=== PATIENT | female | born 1990 | race Caucasian/White ===

== ENCOUNTER 2023-05-12 18:46 | Emergency (ER) | payer OTHER, SELFPAY ==
--- NOTE | ~2023-05-12 | XR_ITS ---
EXAMINATION: XR ELBOW, LEFT CLINICAL INFORMATION: Status post ORIF COMPARISON: None available. TECHNIQUE: AP, lateral, and oblique views of the left elbow. FINDINGS: There is plate and screw fixation noted along the medial aspect of the proximal ulna crossing a transverse fracture. There is lucency surrounding the proximal 4 screws which extend through the plate. The proximal screw was also pulled out approximately 2 mm with the head of the screw proud of the plate. Remaining bones joints and soft tissues are normal. XR/XR elbow LT min 3V IMPRESSION: 1. Plate and screw fixation of proximal ulnar fracture. Lucency surrounding the proximal 4 screws which extend through the plate. The proximal screw was also pulled out approximately 2 mm. Findings raise the question of loosening/osteolysis of the orthopedic fixation. Infection is also a consideration. Fracture remains visible with minimal if any osseous bridging.
--- NOTE | ~2023-05-12 | US_ITS ---
EXAMINATION: US VENOUS WITH DOPPLER UPPER EXTREMITY, LEFT CLINICAL INFORMATION: Left upper extremity pain/swelling COMPARISON: None available. TECHNIQUE: Ultrasound of the upper extremity is performed using compression sonography and color and pulse Doppler flow with assessment of augmentation of flow. There is also imaging and Doppler assessment of the jugular and subclavian veins. Spectral analysis with color-flow imaging is performed. FINDINGS: Respiratory variation, normal compression, and augmented flow are noted throughout the upper extremity including the axillary, brachial, cubital, and radial and ulnar veins. There is normal flow in the internal jugular and subclavian veins. There is no visible deep or superficial thrombophlebitis. Incidental linear echogenic fixation plate overlying the ulna in the forearm with surrounding heterogeneous echogenicity. No discrete fluid collection identified. No significant hypervascularity. If the patient's symptoms progress, a followup ultrasound in 5 -7 days might be of value to exclude proximal propagation from a nonvisualized distal arm vein. US/US venous duplex UE LT IMPRESSION: 1. No DVT demonstrated in the left upper extremity 2. Incidental hardware fixation plate in the forearm, without heterogeneous surrounding echogenicity however no discrete fluid collection or hypervascularity identified.
--- NOTE | 2023-05-12 18:48 | ED_ITS ---
HPI - Extremity Injury (Upper) General Chief Complaint: Extremity Injury, Upper Stated Complaint: Left arm swollen unable to move Time Seen by Provider: 05/12/23 20:40 Source: patient Mode of arrival: ambulatory Limitations: no limitations History of Present Illness HPI narrative: 33 yold female presents to the ED for left arm swelling near ulnar plate and pain on movement. patient states history of left ulnar fractures with plate placed in november with recurrent episodes of seroma and a part of fracture still not healed. patient states no new trauma. Patient states no fever or chills. Patient states no redness, fever, chills, drug use, coldness, hotness, nubmness, or tinglng. Related Data Allergies Allergy/AdvReac Type Severity Reaction Status Date / Time amoxicillin [Amoxicillin] Allergy Unknown HIVES, Verified 05/12/23 18:58 anaphylaxis Iodinated Contrast Media Allergy Unknown DIFFICULTY Verified 05/12/23 18:58 [IV Dye, Iodine Containing] BREATHING penicillin V Allergy Unknown anaphylaxis Verified 05/12/23 18:58 Penicillins Allergy Unknown HIVES Verified 05/12/23 18:58 Sulfa (Sulfonamide Allergy Unknown anaphylaxis Verified 05/12/23 18:58 Antibiotics) sulfamethoxazole Allergy Unknown HIVES Verified 05/12/23 18:58 [From Bactrim] trimethoprim [From Bactrim] Allergy Unknown HIVES Verified 05/12/23 18:58 Review of Systems 2 Review of Systems: Yes all other systems are reviewed and are negative [facility] Social History Social History Smoked in Last 30 Days: Yes Use of substances other than those prescribed or required for medical reasons: No Advance Directives: No Advance Directives Information Provided: No Patient : No Physical Exam 2 Vital Signs: Vital Signs: Last Vital Signs Temp 97.9 F 05/12/23 22:24 Pulse 80 05/12/23 22:24 Resp 16 05/12/23 22:24 BP 123/85 05/12/23 22:24 Pulse Ox 100 05/12/23 22:24 O2 Del Method Room Air 05/12/23 22:24 BMI result Body Mass Index 23.9 Const: General: cooperative, healthy appearing, comfortable, no acute distress, well developed, alert, awake and Physically active O rientation/consciousness: oriented to person, oriented to place, oriented to time and patient oriented x3 HEENT: Head: Yes normal to inspection, Yes No palpable skull fracture present, Yes normocephalic and Yes atraumatic Eyes: General: appearance normal, both eyes and all related structures Neck: Neck: Yes normal visual inspection, Yes full ROM, Yes no lymphadenopathy, Yes no meningeal signs, Yes trachea midline, Yes supple, No anterior neck swelling and No tender Chest: Chest palpation & inspection: normal inspection of the chest and normal palpation of entire chest wall Resp: Effort & Inspection: normal respiratory effort and able to speak in complete sentences Auscultation: clear to auscultation bilaterally Cardio: Jugular venous distension: no JVD Heart sounds: S1 normal heart sound present and S2 normal heart sound present GI: Inspection: Yes normal to inspection and No abdominal wall ecchymosis P alpation (GI): Soft to palpation, not firm, nontender, no guarding and not rigid : General: Yes no CVA tenderness Back/Spine/Pelvis: Back: no CVA tenderness and No back tenderness Skin: General skin exam: no rashes or lesions noted, elasticity normal and turgor normal Neuro: General: oriented to person, oriented to place, oriented to time, patient oriented x3, gait normal, tone normal, moves all extremities, Normal light touch and pain sensation, no meningeal signs, no focal motor deficits, CN's II-XI intact bilaterally and normal sensation to monofilament Extrem: Shoulder/upper arm images: 1. Slight swelling but negative for any fluctuance or mass on palpation. Negative for any erythema. Negative for ecchymosis. Skin is normal temperature. Motor/neuro/vascular exam intact. Psych: Appearance: grossly normal, well kempt and not disheveled Course Course Course Narrative: RME: 33-year-old female with no significant past medical history presenting to the ED complaining of suspected LUE infection x3-4 days, reports burning to area. Reports difficulty/inability to bend & straighten elbow. Patient reports fall on November 07 sustaining scapular and ulnar fx s/p ORIF complicated by seroma which was drained multiple times @[facility] (Dr. Briseno). Was scheduled for another surgery however patient was not aware of appointment. L elbow with old surgical scar and small seroma. No erythema/warmth or crepitus Patient on Suboxone Labs, XR, US, ordered Full HPI, ROS and PE to be performed by primary ED provider. Medical Decision Making Medical Decision Making MDM Narrative: 32-year-old female presents to ED for slight swelling left ulnar area of left forearm pain patient has history of fracture in that area with plate presently placed since November at [facility]. Patient has follow-up with [facility]. Negative for any erythema, bluish black discoloration, hardness, coldness, numbness, or tingling. Patient states no new trauma. Ultrasound negative for abscess or blood clot. X-ray negative for signs of osteomyelitis but does shows osteolysis minimal ulnar fracture still present. History physical exam and xray discussed with on-call orthopedic PA surgeon Mimi who states patient can be discharged with outpatient follow up. Patient is well-appearing. Physical exam negative for signs of cellulitis, compartment syndrome, DVT, necrotizing fasciitis, or arterial occlusion. Patient given copy of labs and images for follow-up with the [facility]. Differential Diagnosis Differential Diagnoses: The differential diagnosis associated with the presentation includes (Cellulitis, DVT, osteomyelitis, necrotizing fasciitis, compartment syndrome) Admission/Observation Consideration of admission/observation: Escalation of care including admission/observation considered Consult Healthcare Provider Management of the patient was discussed with: Hospitalist (Jayna Botello) Lab Data [facility] Lab Attestation statement: I reviewed the patient's lab results. 05/12/23 20:23 05/12/23 20:23 Labs: Lab Results 05/12/23 Range/Units 20:23 WBC 5.6 (4.8-10.8) X10*3/uL RBC 4.40 (4.20-5.50) X10*6/uL Hgb 12.8 (12.0-16.0) g/dl Hct 37.7 (37.0-47.0) % MCV 85.7 (80.0-98.0) fL MCH 29.1 (27.0-33.0) pg MCHC 34.0 (31.0-35.0) g/dl RDW 12.3 (11.0-16.0) % Plt Count 260 (160-400) X10*3/uL MPV 8.3 L (9.4-12.3) fL Immature Gran % (Auto) 0.0 (0.0-0.4) % Neut % (Auto) 53.7 (45-73) % Lymph % (Auto) 35.1 (20-40) % Avery % (Auto) 8.6 (2-11) % Eos % (Auto) 2.2 (0-4) % Baso % (Auto) 0.4 (0-2) % Lymph # (Auto) 2.0 (1.2-4.9) X10*3/uL Avery # (Auto) 0.5 (0.1-1.2) X10*3/uL Eos # (Auto) 0.1 (0.0-0.4) X10*3/uL Baso # (Auto) 0.0 (0.0-0.2) X10*3/uL Abs Immat Gran (auto) 0.00 (0.00-0.03) X10*3/uL Absolute Neuts (auto) 3.0 (2.0-8.3) x10*3/uL Absolute Nucleated RBC 0.000 (0.0-0.012) X10*3/uL Nucleated RBC % (auto) 0.0 (0.0-0.2) /100WBC ESR 14 (0-20) MM/HR PT 11.8 (11.1-13.3) SEC INR 1.0 (0.9-1.1) Sodium 141 (135-145) mmol/L Potassium 3.8 (3.3-5.1) mmol/L Chloride 105 (96-108) mmol/L Carbon Dioxide 27 (22-29) mmol/L Anion Gap 13 (12-20) BUN 13 (9-16) mg/dL Creatinine 0.74 (0.5-1.4) mg/dL Estim Creat Clear Calc 89.4 Estimated GFR > 60 Random Glucose 98 (60-115) mg/dL Calcium 9.1 (8.4-10.2) mg/dL Total Bilirubin 0.2 (0.0-1.0) mg/dL Direct Bilirubin < 0.2 (0.0-0.5) mg/dL AST 25 (5-31) U/L ALT 20 (0-31) U/L Alkaline Phosphatase 82 (39-117) U/L C-Reactive Protein < 0.10 (< or = 0.50) mg/dL Total Protein 7.0 (6.5-8.0) g/dL Albumin 4.1 (3.5-5.0) g/dL Independent Interpretation I performed an independent interpretation of an: Plain X-Ray and Ultrasound Radiology Impression Discussion of test interpretation with radiology: I have reviewed the radiologist's reading. External Record Review External record reviewed: Other (prior visits) Discharge Plan Discharge Clinical Impression: Arm pain, left Patient Disposition: Home, Self-Care Instructions: Arm Pain (ED) Additional Instructions: Recommend for earlier follow-up with [facility] for re-evaluation of your plate placed in your ulnar bone due to a fracture. Return to the ED immediately for increased swelling, redness, warmth, hotness, coolness, fever, chills, numbness/tingling, eligibility to flex and extend or moved extremity, or any other concerning symptoms. Stand Alone Forms: Work/School Release Interventions: ED Discharge Assessment Last Done: 05/12/23 23:07 Discharge Date/Time: 05/12/23 23:07 Print Language: Amharic
[2023-05-12 18:49] VITALS: BP 153/100; PULSE 121; RESP 18; TEMP 37; O2SAT 100; BMI 23.9
--- OUTSIDE RECORDS SUMMARY | 2023-05-12 19:58 | XMS_ITS | Continuity of Care Document ---
Author Name Unknown Organization [facility] Address [address] [place] [address]- Care Team Providers Care Physical Design Engineer Name Role Phone Vasu Joe DO Primary Care Physician Encounter [facility] Date(s): 08/09/21 - 08/10/[address] [address]- Discharge Disposition: A-D/C Home Attending Physician: Vahid Lorenzo MD Admitting Physician: Vahid Lorenzo MD Referring Physician: Not on Staff, Referring MD Allergies, Adverse Reactions, Alerts Substance Reaction Severity Status amoxicillin Active penicillin Active Bactrim hives Active Immunizations Given and Recorded Vaccine Date Status Refusal Reason tetanus/diphtheria/pertussis, acel(Tdap) 12/23/11 Given Medications Adderall See Instructions, 0 Refills, Maintenance, 08/09/21 22:35:00 EST, Partial fill upon patient request if the prescription is for a schedule II opioid drug. Start Date: 08/09/21 Status: Ordered Adderall 30 mg oral tablet 1 tablet = 30 mg, By Mouth, 2 times a day, 0 Refills, Maintenance, 06/02/21 18:58:00 EST, Partial fill upon patient request if the prescription is for a schedule II opioid drug. Start Date: 06/02/21 Status: Ordered albuterol 90 mcg/inh inhalation powder 2 puffs, Inhalation, Every 4 hours, PRN as needed, # 1 each, 0 Refills, Maintenance, 12/12/16 3:48:48, Powder Start Date: 12/12/16 Status: Ordered Buprenorphine = 8 mg, Sublingual, 3 times a day, 0 Refills, Maintenance, 10/03/20 10:35:00 EDT, Partial fill uponpatient request if the prescription is for a schedule II opioid drug. Start Date: 10/03/20 Status: Ordered ciprofloxacin ophthalmic 0.3% solution 2 drops, OPTH, Every 4 hours, to right eye, # 5 mL, 0 Refills, Maintenance, Ophth Solution Start Date: 11/16/09 Stop Date: 11/23/09 Status: Ordered Claritin 10 mg oral tablet 10 mg, 1, tablet, By Mouth, Daily, # 30 tablet, Refills 0, Maintenance, 12/12/16 3:49:04 Start Date: 12/12/16 Status: Ordered Clonazepam See Instructions, 0.5 mg By Mouth 3 times a day, 0 Refills, Maintenance, 12/12/16 3:49:11 Start Date: 12/12/16 Status: Ordered DiphenhydrAMINE = 50 mg, By Mouth, Daily at bedtime, 0 Refills, Maintenance, 10/03/20 10:33:00 EDT, Partial fill upon patient request if the prescription is for a schedule II opioid drug. Start Date: 10/03/20 Status: Ordered docusate sodium 100 mg oral capsule 100 mg, 1, capsule, By Mouth, 2 times a day, # 60 capsule, Refills 0, Tot. Refills 0, Maintenance, 10/08/20 9:40:00 EDT, Route to Pharmacy Electronically, [facility]/pharmacy #[id number], Partial fill upon patient request if the prescription is for a schedule II o... Start Date: 10/08/20 Status: Ordered doxepin 10 mg oral capsule 1 capsule = 10 mg, By Mouth, 3 times a day, 0 Refills, Maintenance, 06/02/21 18:58:00 EST, Partial fill upon patient request if the prescription is for a schedule II opioid drug. Start Date: 06/02/21 Status: Ordered doxycycline hyclate 100 mg oral tablet 1 tablet = 100 mg, By Mouth, 2 times a day, for 10 days, # 20 tablet, 0 Refills, Acute 08/19/21 23:13:00 EST, 08/09/21 23:13:00 EST, Tablet, [facility]/pharmacy #[id number], Partial fill upon patient request if the prescription is for a schedule II opioid drug., 1... Start Date: 08/09/21 Stop Date: 08/19/21 Status: Ordered gabapentin 300 mg oral capsule 300 mg, 1, capsule, By Mouth, 3 times a day, # 90 capsule, Refills 5, Maintenance, 06/02/21 18:58:00 EST, Partial fill upon patient request if the prescription is for a schedule II opioid drug. Start Date: 06/02/21 Status: Ordered Leader Nicotine Polacrilex 2 mg oral transmucosal gum 2 each = 4 mg, Chew, Every 2 hours, PRN as needed for smoking cessation, # 40 each, 0 Refills, Maintenance, 10/03/20 10:38:00 EDT, Gum, Partial fill upon patient request if the prescription is for a schedule II opioid drug. Start Date: 10/03/20 Status: Ordered Lyrica 25 mg oral capsule See Instructions, 0 Refills, Maintenance, 08/09/21 22:34:00 EST, Partial fill upon patient request if the prescription is for a schedule II opioid drug. Start Date: 08/09/21 Status: Ordered Melatonin = 3 mg, By Mouth, Daily at bedtime, 0 Refills, Maintenance, 10/03/20 10:32:00 EDT, Partial fill upon patient request if the prescription is for a schedule II opioid drug. Start Date: 10/03/20 Status: Ordered metoclopramide 5 mg oral tablet 1 tablet = 5 mg, By Mouth, Every 6 hours, 0 Refills, Maintenance, 10/03/20 10:37:00 EDT, Partial fill upon patient request if the prescription is for a schedule II opioid drug. Start Date: 10/03/20 Status: Ordered nicotine 14 mg/24 hr transdermal film, extended release 1 patch, Topically, Daily, # 30 patch, 0 Refills, Maintenance, 10/03/20 10:37:00 EDT, Patch, Partial fill upon patient request if the prescription is for a schedule II opioid drug. Start Date: 10/03/20 Status: Ordered polyethylene glycol 3350 oral powder for reconstitution = 17 Gm, By Mouth, Daily, dissolve in water before taking, # 255 Gm, 0 Refills, Maintenance, 10/03/20 10:39:00 EDT, REC Powder, Partial fill upon patient request if the prescription is for a scheduleII opioid drug. Start Date: 10/03/20 Status: Ordered Qvar 80 mcg/inh inhalation aerosol = 80 mcg, Inhalation, 2 times a day, 0 Refills, Maintenance, 12/12/16 3:48:27 Start Date: 12/12/16 Status: Ordered SEROquel 25 mg oral tablet 25 mg, 1, tablet, By Mouth, 3 times a day, Refills 0, Maintenance, 08/09/21 22:35:00 EST, Partial fill upon patient request if the prescription is for a schedule II opioid drug. Start Date: 08/09/21 Status: Ordered Suboxone 2 mg-0.5 mg sublingual film See Instructions, 0 Refills, Maintenance, 08/09/21 22:35:00 EST, Partial fill upon patient request if the prescription is for a schedule II opioid drug. Start Date: 08/09/21 Status: Ordered Zofran 4 mg oral tablet 1 tablet = 4 mg, By Mouth, Every 8 hours, PRN Nausea & Vomiting, # 4 tablet, 0 Refills, Maintenance, Tablet Start Date: 01/13/12 Status: Ordered ZyrTEC 10 mg oral tablet 1 tablet = 10 mg, By Mouth, Daily, 0 Refills, Maintenance, 06/02/21 18:58:00 EST, Partial fill uponpatient request if the prescription is for a schedule II opioid drug. Start Date: 06/02/21 Status: Ordered Results Radiology Reports * Exam Date Time Procedure Performing Provider Status 08/09/21 11:56 PM Chest 2 Views Frontal and Lat Delphine Mccoy; Qian (Verified) Notes: (Chest 2 Views Frontal and Lat) Reason For Exam: Shortness of Breath, Fever;Other: RESULT: Chest 2 Views Frontal and Lat Chest 2 Views Frontal and Lat INDICATION: patient has been waking up with mucus since february, worsening since saturday; recently quit vapping; pleuritic chest pain COMPARISON: 04/16/2014 FINDINGS: LINES AND TUBES: None. LUNGS AND PLEURA: Clear lungs. Normal pulmonary vascularity. No pleural effusion. No pneumothorax. HEART, MEDIASTINUM AND ALBINA: Heart is normal in size. Normal upper mediastinal and hilar contour. BONES AND SOFT TISSUES: Normal. IMPRESSION: Normal. No findings to correlate to patient's symptoms. I have personally reviewed the images and I agree with this report. WSN: [id number] Ordering Physician: Vahid Lorenzo Dictated By: Nando Adamson DO Dictated Date/Time: 08/10/21 7:38 am Reviewed By: Teofilo Patel MD Signed By: Teofilo Patel MD Signed Date/Time: 08/10/21 7:43 am Transcribed By: TERA Transcribed Date/Time: 08/09/21 11:58 pm Vital Signs Most recent to oldest [Reference Range]: 1 2 3 Height 160 cm (08/10/21 12:24 AM) 160 cm (08/10/21 12:23 AM) 160 cm (08/09/21 11:09 PM) Weight 65.4 kg (08/10/21:24 AM) 65.4 kg (08/10/21:23 AM) 65.4 kg (08/09/21 11:09 PM) Oxygen Saturation [94-100 %] 100 % (08/10/21:23 AM) 100 % (08/09/21 11:09 PM) 98 % (08/09/21 10:27 PM) Pulse Rate [55-90 bpm] 79 bpm (08/10/21 12:23 AM) 83 bpm (08/09/21 11:09 PM) 87 bpm (08/09/21 10:27 PM) Body Mass Index [18.5-24.99] 25.55 *H* (08/10/21:24 AM) 25.55 *H* (08/10/21:23 AM) 25.55 *H* (08/09/21 11:09 PM) Blood Pressure [90-138/55-84 mm Hg] 127/91mm Hg (08/10/21 12:23 AM) 140/98mm Hg *H* (08/09/21 11:09 PM) 142/93mm Hg *H* (08/09/21 10:27 PM) Respiratory Rate [16-30 br/min] 18 br/min (08/10/21:23 AM) 17 br/min (08/09/21 11:09 PM) 16 br/min (08/09/21 10:27 PM) Temperature [96.8-100.4 DegF] 97.3 DegF (08/10/21:24 AM) 97.7 DegF (08/09/21 10:27 PM) Liters per Minute 0 L/min (08/10/21: AM) Mode of Delivery (Oxygen) Room air (08/10/21:23 AM) Room air (08/09/21 11:09 PM) Room air (08/09/21 10:27 PM) Blood pressure sites Arm, left (08/10/21 12:23 AM) Arm, left (08/09/21 11:09 PM) Arm, left (08/09/21 10:27 PM) Temperature Route Oral (08/10/21 12:24 AM) Oral (08/09/21 10:27 PM) Dry Weight 65.4 kg (08/10/21 12:24 AM) 65.4 kg (08/10/21 12:23 AM) 65.4 kg (08/09/21 11:09 PM) Social History Social History Type Response Tobacco Use: quit vapping th is week . Sex
--- OUTSIDE RECORDS SUMMARY | 2023-05-12 19:58 | XMS_ITS | Continuity of Care Document ---
Author Name Unknown Organization [facility] Address [address] [place] [address] mario alberto, [address] [place] [address]- Care Team Providers Care Company Pilot Name Role Phone Vasu Joe DO Primary Care Physician [place] [facility] [place]/24/[address] [facility] Surgery [address] [place] [address], [address] [place] [address]- Allergies, Adverse Reactions, Alerts Substance Reaction Severity Status amoxicillin Active penicillin Active Bactrim hives Active Immunizations Given and Recorded Vaccine Date Status Refusal Reason influenza virus vaccine, inactivated 04/05/22 Edin rded pneumococcal 23-valent vaccine 01/31/16 Recorded tetanus/diphtheria/pertussis, acel(Tdap) 12/23/11 Given tetanus-diphtheria toxoids (Td) 12/06/10 Recorded Medications Adderall See Instructions, 0 Refills, Maintenance, [...] 3:48:48, Powder Start Date: 12/12/16 Status: Ordered Azithromycin 5 Day Dose Pack 250 mg oral tablet 1 pack/packet, By Mouth, Once, as directed on package labeling, # 6 tablet, 0 Refills, Soft Stop, 02/13/23 15:55:00 EDT, Tablet, [facility]/pharmacy #[id number], Partial fill upon patient request if the prescription is for a schedule II opioid drug., 165, cm, 080... Start Date: 02/13/23 Status: Ordered Buprenorphine = 8 mg, Sublingual, 3 times a day, 0 Refills, Maintenance, 10/03/20 10:35:00 EDT, Partial fill uponpatient request if the prescription is for a schedule II opioid drug. Start Date: 10/03/20 Status: Ordered cholecalciferol oral tablet See Instructions, By Mouth Daily, # 30 tablet, 0 Refills, Maintenance, 11/23/22 13:00:00 EDT, [facility] fill upon patient request if the prescription is for a scheduleII opioid drug., 165, cm, 11/23/22 6:21:00 EDT, Hei... Start Date: 11/23/22 Stop Date: 12/24/22 Status: Ordered ciprofloxacin ophthalmic 0.3% solution 2 [...] 12/12/16 3:49:11 Start Date: 12/12/16 Status: Ordered cloNIDine 0.1 mg oral tablet 0.1 mg, 1, tablet, By Mouth, Every 8 hours, PRN, PRN for restlessness, # 21 tablet, Refills 0, Tot.Refills 0, Maintenance, Other, 11/23/22 13:00:00 EDT, Route to Pharmacy Electronically, [facility], Partial fill upon patient request if... Start Date: 11/23/22 Stop Date: 11/30/22 Status: Ordered Cyclobenzaprine By Mouth, 0 Refills, Maintenance, 02/13/23 13:01:00 EDT, Partial fill upon patient request if the prescription is for a schedule II opioid drug. Start Date: 02/13/23 Status: Ordered DiphenhydrAMINE = 50 mg, By Mouth, Daily at bedtime, 0 Refills, Maintenance, 10/03/20 10:33:00 EDT, Partial fill upon patient request if the prescription is for a schedule II opioid drug. Start Date: 10/03/20 Status: Ordered docusate sodium 100 mg oral capsule 100 mg, 1, capsule, By Mouth, 2 times a day, # 28 capsule, Refills 0, Tot. Refills 0, Maintenance, 11/23/22 13:00:00 EDT, Route to Pharmacy Electronically, [facility], Partial fill uponpatient request if the prescription is for a schedu... Start Date: 11/23/22 Stop Date: 12/07/22 Status: Ordered docusate sodium 100 mg oral capsule 100 mg, 1, capsule, By Mouth, 2 times a day, # 60 capsule, Refills 0, Tot. Refills 0, Maintenance, 10/08/20 9:40:00 EDT, [id number] Partial fill upon patient request if the prescription is for a schedule II o... Start Date: 10/08/20 Status: Ordered doxepin 10 mg oral capsule 1 capsule = 10 mg, By Mouth, 3 times a day, 0 Refills, Maintenance, 06/02/21 18:58:00 EST, Partial fill upon patient request if the prescription is for a schedule II opioid drug. Start Date: 06/02/21 Status: Ordered Flomax 0.4 mg oral capsule 0.4 mg, 1, capsule, By Mouth, Daily, # 14 capsule, Refills 0, Tot. Refills 0, Maintenance, 11/23/2312:01:00 EDT, Route to Pharmacy Electronically, [facility], Partial fill upon patientrequest if the prescription is for a schedule II op... Start Date: 11/23/22 Stop Date: 12/07/22 Status: Ordered gabapentin 300 mg oral capsule 600 mg, 2, capsule, By Mouth, 3 times a day, # 180 capsule, Refills 0, Tot. Refills 0, Maintenance,11/23/22 13:00:00 EDT, Route to Pharmacy Electronically, [facility], Partial fill upon patient request if the prescription is for a sched... Start Date: 11/23/22 Stop Date: 12/23/22 Status: Ordered gabapentin 300 mg oral capsule [...] drug. Start Date: 10/03/20 Status: Ordered Lyrica 150 mg oral capsule 2 capsule = 300 mg, By Mouth, Daily at bedtime, # 60 capsule, 0 Refills, Maintenance, 11/23/22 13:01:00 EDT, Capsule, [facility], Partial fill upon patient request if the prescription is for a schedule II opioid drug., 165, cm, 11/23/22... Start Date: 11/23/22 Stop Date: 12/23/22 Status: Ordered Lyrica 25 mg oral capsule [...] opioid drug. Start Date: 10/03/20 Status: Ordered morphine 60 mg/24 hours oral capsule, extended release = 60 mg, By Mouth, Daily, # 7 capsule, 0 Refills, Maintenance, 11/23/22 14:08:00 EDT, ER Capsule, [facility], Partial fill upon patient request if the prescription is for a schedule II opioid drug., 165, cm, 11/23/22 6:21:00 EDT, Height,... Start Date: 11/23/22 Stop Date: 11/30/22 Status: Ordered nicotine 14 mg/24 hr transdermal [...] opioid drug. Start Date: 08/09/21 Status: Ordered Shower Bench See Instructions, # 1 each, Maintenance, shower bench, 12/19/22 14:07:00 EDT, Supply Start Date: 12/19/22 Status: Ordered Shower Chair See Instructions, # 1 each, Maintenance, shower chair, 11/26/22 12:22:00 EDT, Supply Start Date: 11/26/22 Status: Ordered Suboxone 2 mg-0.5 mg sublingual film See Instructions, 0 Refills, Maintenance, 08/09/21 22:35:00 EST, Partial fill upon patient request if the prescription is for a schedule II opioid drug. Start Date: 08/09/21 Status: Ordered toilet seat riser toilet seat riser, See Instructions, # 1 each, Refills 0, Tot. Refills 0, Maintenance, ., 12/19/22 14:07:00 EDT, Supply Start Date: 12/19/22 Status: Ordered Vyvanse 70 mg oral capsule 1 capsule = 70 mg, By Mouth, Daily in AM, 0 Refills, Maintenance, 02/13/23 13:01:00 EDT, Partial fill upon patient request if the prescription is for a schedule II opioid drug. Start Date: 02/13/23 Status: Ordered Zofran 4 mg oral tablet [...] opioid drug. Start Date: 06/02/21 Status: Ordered Social History Social History Type Response Tobacco Use: 4 or less cigar ettes(less than 1/4 pack)/day in last 30 days. Sex Implantable Device List Procedure Provider Procedure Date Device Type Site Open Reduction Internal Fixation Taz Garland MD 11/07/22 Unknown Arm Lower Device Identifier Serial Number Lot or Batch Number Manufacturing Date Expiration Date Distinct Identification Code MRI Safety Implantable Status Assigning Authority Unknown Unknown Unknown Unknown 11/07/22 Unknown Unknown Active Unkn own Procedure Provider Procedure Date Device Type Site Open Reduction Internal Fixation Taz Garland MD 11/07/22 Unknown Arm Lower Device Identifier Serial Number Lot or Batch Number Manufacturing Date Expiration Date Distinct Identification Code MRI Safety Implantable Status Assigning Authority Unknown Unknown Unknown Unknown 11/07/22 Unknown Unknown Active Unkn own Procedure Provider Procedure Date Device Type Site Open Reduction Internal Fixation Taz Garland MD 11/07/22 Unknown Arm Lower Device Identifier Serial Number Lot or Batch Number Manufacturing Date Expiration Date Distinct Identification Code MRI Safety Implantable Status Assigning Authority Unknown Unknown Unknown Unknown 11/07/22 Unknown Unknown Active Unkn own Procedure Provider Procedure Date Device Type Site Open Reduction Internal Fixation Taz Garland MD 11/07/22 Unknown Arm Lower Device Identifier Serial Number Lot or Batch Number Manufacturing Date Expiration Date Distinct Identification Code MRI Safety Implantable Status Assigning Authority Unknown Unknown Unknown Unknown 11/07/22 Unknown Unknown Active Unkn own Procedure Provider Procedure Date Device Type Site Open Reduction Internal Fixation Taz Garland MD 11/07/22 Unknown Arm Lower Device Identifier Serial Number Lot or Batch Number Manufacturing Date Expiration Date Distinct Identification Code MRI Safety Implantable Status Assigning Authority Unknown Unknown Unknown Unknown 11/07/22 Unknown Unknown Active Unkn own Patient Care team information Care Team Personnel Name: Carla Cooley RN Position: S RN Member Role: Primary Care Nurse Name: Robbie Pichardo RN Position: S RN Member Role: Primary Care Nurse Name: Juwan Gerber RN Position: [facility] RN Member Role: Primary Care Nurse Name: Seven Raines MD Position: [facility] PHARMACY GRADUATE INTERN MD Member Role: [employer] PHARMACY GRADUATE INTERN Physician Address: Address: [address] [place] [address]- Name: Jaja Champagne RN Position: [facility] RN Member Role: Primary Care Nurse Name: Danielle Hernandez LPN Position: [facility] RN Member Role: Primary Care Nurse Name: Nadia Diego RN Position: [facility] RN Member Role: Primary Care Nurse Name: Glenys Cardenas RN Position: [facility] RN Member Role: Primary Care Nurse Name: Izzy Escalante RN Position: [facility] RN Member Role: Primary Care Nurse Name: Vasu Joe DO Position: [facility] Physician - Primary Care Member Role: PCP Address: Address: [address] [place], [place] [id number] [place] [address]- Name: Mai Hess RN Position: [facility] RN Member Role: Primary Care Nurse Name: Anna Reyes RN Position: [facility] RN Member Role: Primary Care Nurse Name: Mali Mosley RN Position: [facility] RN Member Role: Primary Care Nurse Care Team Related Persons Name: ASAEL BAZAN Address: [address] [place] [address] Name: KIRILL BAZAN Address: home [address] [place] [address] Name: ZHOU BAZAN Address: Address: home [address] [place] [address] [place]
--- OUTSIDE RECORDS SUMMARY | 2023-05-12 19:58 | XMS_ITS | Continuity of Care Document ---
Author Name Unknown Organization [facility] Address [address] [place] [address]- Care Team Providers Care Law Enforcement Director Name Role Phone Vasu Joe DO Primary Care Physician Encounter [facility] Date(s): 06/02/21 - 06/02/[address] [address]- Discharge Disposition: A-D/C Home Attending Physician: Nesha Allen MD Admitting Physician: Nesha Allen MD Referring Physician: Not on Staff, Referring MD Allergies, Adverse Reactions, Alerts Substance Reaction Severity Status amoxicillin Active penicillin Active Bactrim hives Active Immunizations Given and Recorded Vaccine Date Status Refusal Reason tetanus/diphtheria/pertussis, acel(Tdap) 12/23/11 Given Medications Adderall 30 mg oral tablet 1 tablet [...] 0 Refills, Maintenance, Ophth Solution Start Date: 5/12/10 Stop Date: 11/23/09 Status: Ordered Claritin 10 [...] 10/08/20 9:40:00 EDT, Route to Pharmacy Electronically, [facility]/pharmacy #[id number], Partial fill upon patient request if the prescription is for a schedule II o... Start Date: 10/08/20 Status: Ordered doxepin 10 mg oral capsule 1 capsule = 10 mg, By Mouth, 3 times a day, 0 Refills, Maintenance, 06/02/21 18:58:00 EST, Partial fill upon patient request if the prescription is for a schedule II opioid drug. Start Date: 06/02/21 Status: Ordered gabapentin 300 mg oral capsule [...] opioid drug. Start Date: 10/03/20 Status: Ordered Melatonin = 3 mg, By [...] 12/12/16 3:48:27 Start Date: 12/12/16 Status: Ordered Zithromax 250 mg oral tablet 1 tablet = 250 mg, By Mouth, Daily, for 4 days, # 4 tablet, 0 Refills, Acute 06/06/21 21:14:00 EST,06/02/21 21:14:00 EST, Tablet, [facility]/pharmacy #[id number], Partial fill upon patient request if the prescription is for a schedule II opioid drug., 158, cm, 11... Start Date: 06/02/21 Stop Date: 06/06/21 Status: Ordered Zofran 4 mg oral tablet [...] drug. Start Date: 06/02/21 Status: Ordered Results Orders for Microbiology Reports Name Date Group A Strep Screen and Culture 1 Microbiology Reports TEST:Group A Strep Screen and Culture STATUS:Unauthenticated BODY SITE: SOURCE:THROAT COLLECTED DATE/TIME:06/02/21 8:29 PM Group A Strep Screen and Culture SPECIMEN DESCRIPTION : THROAT SWAB SPECIAL REQUESTS : NONE DIRECT EXAM : RAPID GROUP A RESULT IS NEGATIVE, REFER TO CULTURE RESULT. REPORT STATUS : PRELIMINARY REPORT Vital Signs Most recent to oldest [Reference Range]: 1 2 Height 158 cm (06/02/21 9:27 PM) 158 cm (06/02/21 6:54 PM) Weight 63.4 kg (06/02/21 6:54 PM) Oxygen Saturation [94-100 %] 96 % (06/02/21 9:27 PM) 97 % (06/02/21 6:53 PM) Pulse Rate [55-90 bpm] 97 bpm *H* (06/02/21 9:27 PM) 106 bpm *H* (06/02/21 6:53 PM) Blood Pressure [90-138/55-84 mm Hg] 129/ 77mm Hg (06/02/21 9:27 PM) 124/91mm Hg (06/02/21 6:53 PM) Respiratory Rate [16-30 br/min] 16 br/mi n (06/02/21 9:27 PM) 20 br/min (06/02/21 6:53 PM) Temperature [96.8-100.4 DegF] 97.2 DegF (06/02/21 6:54 PM) Mode of Delivery (Oxygen) Room air (06/02/21 9:27 PM) Room air (06/02/21 6:53 PM) Blood pressure sites Arm, right (06/02/21 9:27 PM) Arm, left (06/02/21 6:53 PM) Temperature Route Temporal (06/02/21 6:54 PM) Dry Weight 63.4 kg (06/02/21 6:54 PM) Social History Social History Type Response Tobacco Use: 4 or less cigar ettes(less than 1/4 pack)/day in last 30 days. Sex
--- OUTSIDE RECORDS SUMMARY | 2023-05-12 19:58 | XMS_ITS | Continuity of Care Document ---
Author Name Unknown Organization [facility] Address [address] [place] [address] mario alberto, [address] [place] [address]- Care Team Providers Care Distribution Center Assistant Name Role Phone Vasu Joe DO Primary Care Physician Encounter [facility] [place] Date(s): 04/01/23 - 05/01/23 [facility] Surgery [address] [place] [address], [address] [place] [address]- Allergies, Adverse Reactions, Alerts Substance Reaction Severity [...] Refills, Soft Stop, 02/13/23 15:55:00 EDT, Tablet, [facility]/pharmacy #[id number], Partial fill upon patient request [...] 0 Refills, Maintenance, 11/23/22 13:00:00 EDT, Tablet, [facility], Partial fill upon patient request if [...] 11/23/22 13:00:00 EDT, Route to Pharmacy Electronically, [facility], Partial fill upon patient request [...] 11/23/22 13:00:00 EDT, Route to Pharmacy Electronically, [facility], Partial fill uponpatient request if the prescription is for a schedu... Start Date: 11/23/22 Stop Date: 12/07/22 Status: Ordered docusate sodium 100 mg oral capsule 100 mg, 1, capsule, By Mouth, 2 times a day, # 60 capsule, Refills 0, Tot. Refills 0, Maintenance, 10/08/20 9:40:00 EDT, [id number] Partial fill upon patient request if [...] Maintenance, 11/23/2312:01:00 EDT, Route to Pharmacy Electronically, [facility], Partial fill upon patientrequest if the prescription is for a schedule II op... Start Date: 11/23/22 Stop Date: 12/07/22 Status: Ordered gabapentin 300 mg oral capsule 600 mg, 2, capsule, By Mouth, 3 times a day, # 180 capsule, Refills 0, Tot. Refills 0, Maintenance,11/23/22 13:00:00 EDT, Route to Pharmacy Electronically, [facility], Partial fill upon patient [...] 0 Refills, Maintenance, 11/23/22 13:01:00 EDT, Capsule, [facility], Partial fill upon patient [...] Refills, Maintenance, 11/23/22 14:08:00 EDT, ER Capsule, [facility], Partial fill upon patient request [...] Care Nurse Name: Juwan Gerber RN Position: [facility] RN Member Role: Primary Care Nurse Name: Seven Raines MD Position: [facility] FRONT LINE LEADER MD Member Role: [employer] FRONT LINE LEADER Physician Address: Address: [address] [place] [address]- Name: Jaja Champagne RN Position: [facility] RN Member Role: Primary Care Nurse Name: Danielle Hernandez LPN Position: [facility] RN Member Role: Primary Care Nurse Name: Nadia Diego RN Position: [facility] RN Member Role: Primary Care Nurse Name: Glenys Cardenas RN Position: [facility] RN Member Role: Primary Care Nurse Name: Izzy Escalante RN Position: [facility] RN Member Role: Primary Care Nurse Name: Vasu Joe DO Position: [facility] Physician - Primary Care Member Role: PCP Address: Address: [address] [place], [place] [id number] [place] [address]- Name: Mai Hess RN Position: [facility] RN Member Role: Primary Care Nurse Name: Anna Reyes RN Position: [facility] RN Member Role: Primary Care Nurse Name: Mali Mosley RN Position: [facility] RN Member Role: Primary Care Nurse Care Team Related Persons Name: ASAEL BAZAN Address: [address] [place] [address] Name: KIRILL BAZAN Address: home [address] [place] [address] Name: ZHOU BAZAN Address: Address: home [address] [place] [address] [place]
--- OUTSIDE RECORDS SUMMARY | 2023-05-12 19:58 | XMS_ITS | Continuity of Care Document ---
Author Name Unknown Organization [facility] Address [address] [place] [address] ve [address] [place] [address]- Care Team Providers Care Programs Assistant Name Role Phone Vasu Joe DO Primary Care Physician Encounter [facility] [place] Date(s): 02/28/23 - 03/30/[address] [place] [address]- Allergies, Adverse Reactions, Alerts Substance Reaction Severity [...] Refills, Soft Stop, 02/13/23 15:55:00 EDT, Tablet, [facility]/pharmacy #[id number], Partial fill upon patient request [...] 0 Refills, Maintenance, 11/23/22 13:00:00 EDT, Tablet, [facility], Partial fill upon patient [...] 11/23/22 13:00:00 EDT, Route to Pharmacy Electronically, [facility], Partial fill upon patient request [...] 11/23/22 13:00:00 EDT, Route to Pharmacy Electronically, [facility], Partial fill uponpatient request if the prescription is for a schedu... Start Date: 11/23/22 Stop Date: 12/07/22 Status: Ordered docusate sodium 100 mg oral capsule 100 mg, 1, capsule, By Mouth, 2 times a day, # 60 capsule, Refills 0, Tot. Refills 0, Maintenance, 10/08/20 9:40:00 EDT, [id number] fill upon patient [...] Maintenance, 11/23/2312:01:00 EDT, Route to Pharmacy Electronically, [facility], Partial fill upon patientrequest if the prescription is for a schedule II op... Start Date: 11/23/22 Stop Date: 12/07/22 Status: Ordered gabapentin 300 mg oral capsule 600 mg, 2, capsule, By Mouth, 3 times a day, # 180 capsule, Refills 0, Tot. Refills 0, Maintenance,11/23/22 13:00:00 EDT, Route to Pharmacy Electronically, [facility], Partial fill upon patient [...] 0 Refills, Maintenance, 11/23/22 13:01:00 EDT, Capsule, [facility], Partial fill upon patient [...] Refills, Maintenance, 11/23/22 14:08:00 EDT, ER Capsule, [facility], Partial fill upon patient [...] Team Personnel Name: Carla Cooley RN Position: [facility] RN Member Role: Primary Care Nurse Name: Robbie Pichardo RN Position: S RN Member Role: Primary Care Nurse Name: Juwan Gerber RN Position: [facility] RN Member Role: Primary Care Nurse Name: Seven Raines MD Position: [facility] VIDEO JOURNALIST MD Member Role: [employer] VIDEO JOURNALIST Physician Address: Address: [address] [place] [address]- Name: Jaja Champagne RN Position: [facility] RN Member Role: Primary Care Nurse Name: Danielle Hernandez LPN Position: [facility] RN Member Role: Primary Care Nurse Name: Nadia Diego RN Position: [facility] RN Member Role: Primary Care Nurse Name: Glenys Cardenas RN Position: [facility] RN Member Role: Primary Care Nurse Name: Izzy Escalante RN Position: [facility] RN Member Role: Primary Care Nurse Name: Vasu Joe DO Position: [facility] Physician - Primary Care Member Role: PCP Address: Address: [address] [place], [place] [id number] [place] [address]- Name: Mai Hess RN Position: [facility] RN Member Role: Primary Care Nurse Name: Anna Reyes RN Position: [facility] RN Member Role: Primary Care Nurse Name: Mali Mosley RN Position: [facility] RN Member Role: Primary Care Nurse Care Team Related Persons Name: ASAEL BAZAN Address: home [address] [place] [address] Name: KIRILL BAZAN Address: home [address] [place] [address] Name: ZHOU BAZAN Address: Address: home [address] [place] [id number] [place]
--- OUTSIDE RECORDS SUMMARY | 2023-05-12 19:58 | XMS_ITS | Continuity of Care Document ---
Author Name Unknown Organization [facility] Address [address] [place] [id number]- Care Team Providers Care Plastic Straightening Roll Operator Name Role Phone Vasu Joe DO Primary Care Physician [place] [facility] [place](s[place] 03/10/20 - 04/09/[address] [address]- [facility] Allergies, Adverse Reactions, Alerts Substance Reaction Severity Status amoxicillin Active penicillin Active Bactrim hives Active Immunizations Given and Recorded Vaccine Date Status Refusal Reason tetanus/diphtheria/pertussis, acel(Tdap) 12/23/11 Given Medications albuterol 90 mcg/inh inhalation powder 2 puffs, Inhalation, Every 4 hours, PRN as needed, # 1 each, 0 Refills, Maintenance, 12/12/16 3:48:48, Powder Start Date: 12/12/16 Status: Ordered ciprofloxacin ophthalmic 0.3% solution 2 drops, OPTH, Every 4 hours, to right eye, # 5 mL, 0 Refills, Maintenance, Ophth Solution Start Date: 11/16/09 Stop Date: 11/23/09 Status: Ordered Claritin 10 mg oral tablet 10 mg, 1, tablet, By Mouth, Daily, # 30 tablet, Refills 0, Maintenance, 12/12/16 3:49:04 Start Date: 12/12/16 Status: Ordered clindamycin 300 mg oral capsule 1 capsule = 300 mg, By Mouth, 2 times a day, for 10 days, with food, # 20 capsule, 0 Refills, Acute04/12/20 12:21:00 EDT, 04/02/20 12:21:00 EDT, Capsule, [id number], 160, cm, 04/02/20 11:34:00 EDT, Height, 52.5, kg, 04/02/20 11:34:00 EDT, Dry... Start Date: 04/02/20 Stop Date: 04/12/20 Status: Ordered Clonazepam See Instructions, 0.5 mg By Mouth 3 times a day, 0 Refills, Maintenance, 12/12/16 3:49:11 Start Date: 12/12/16 Status: Ordered ibuprofen 600 mg oral tablet 1 tablet = 600 mg, By Mouth, 4 times a day, PRN Pain, # 40 tablet, 0 Refills, Maintenance Start Date: 12/23/11 Status: Ordered Percocet-5/325 325 mg-5 mg oral tablet 1-2 tablet, By Mouth, Every 4 to 6 hours, PRN Pain , Moderate, # 12 tablet, 0 Refills, Maintenance Start Date: 12/29/10 Status: Ordered Percocet-5/325 325 mg-5 mg oral tablet 1 tablet, By Mouth, Every 6 hours, PRN Pain , Severe, # 8 tablet, 0 Refills, Maintenance, Tablet Start Date: 11/16/09 Status: Ordered Qvar 80 mcg/inh inhalation aerosol = 80 mcg, Inhalation, 2 times a day, 0 Refills, Maintenance, 12/12/16 3:48:27 Start Date: 12/12/16 Status: Ordered Zofran 4 mg oral tablet 1 tablet = 4 mg, By Mouth, Every 8 hours, PRN Nausea & Vomiting, # 4 tablet, 0 Refills, Maintenance, Tablet Start Date: 01/13/12 Status: Ordered Social History Social History Type Response Tobacco Use: 4 or less cigar ettes(less than 1/4 pack)/day in last 30 days. Sex
--- OUTSIDE RECORDS SUMMARY | 2023-05-12 19:59 | XMS_ITS | Continuity of Care Document ---
Author Name Unknown Organization [facility] ter Address [address] [place] [id number]- Care Team Providers Care Sponsorship Coordinator Name Role Phone Alyssagueritanavmarquita Vasu BACA Primary Care Physician Encounter [facility] [place] Date(s): 11/22/22 - 12/22/[address] [address]- Attending Physician: Not on Staff, Attending MD Admitting Physician: Not on Staff, Admitting MD Referring Physician: Not on Staff, Referring [...] 0 Refills, Maintenance, 11/23/22 13:00:00 EDT, Tablet, [facility], Partial fill upon patient request [...] 11/23/22 13:00:00 EDT, Route to Pharmacy Electronically, [facility], Partial fill upon patient request if... Start Date: 11/23/22 Stop Date: 11/30/22 Status: Ordered DiphenhydrAMINE = 50 mg, By [...] 11/23/22 13:00:00 EDT, Route to Pharmacy Electronically, [facility], Partial fill uponpatient request if the prescription is for a schedu... Start Date: 11/23/22 Stop Date: 12/07/22 Status: Ordered docusate sodium 100 mg oral capsule 100 mg, 1, capsule, By Mouth, 2 times a day, # 60 capsule, Refills 0, Tot. Refills 0, Maintenance, 10/08/20 9:40:00 EDT, [id number] fill upon patient request [...] Maintenance, 11/23/2312:01:00 EDT, Route to Pharmacy Electronically, [facility], Partial fill upon patientrequest if the prescription is for a schedule II op... Start Date: 11/23/22 Stop Date: 12/07/22 Status: Ordered gabapentin 300 mg oral capsule 600 mg, 2, capsule, By Mouth, 3 times a day, # 180 capsule, Refills 0, Tot. Refills 0, Maintenance,11/23/22 13:00:00 EDT, Route to Pharmacy Electronically, [facility], Partial fill upon patient [...] 0 Refills, Maintenance, 11/23/22 13:01:00 EDT, Capsule, [facility], Partial fill upon patient [...] Refills, Maintenance, 11/23/22 14:08:00 EDT, ER Capsule, [facility], Partial fill upon patient [...] EDT, Supply Start Date: 12/19/22 Status: Ordered Zofran 4 mg oral tablet [...] quit vapping th is week . Sex Implantable Device List Procedure Provider Procedure [...] Team Personnel Name: Carla Cooley RN Position: [facility] RN Member Role: Primary Care Nurse Name: Robbie Pichardo RN Position: [facility] RN Member Role: Primary Care Nurse Name: Juwan Gerber RN Position: [facility] RN Member Role: Primary Care Nurse Name: Seven Raines MD Position: [facility] LEASING AGENT MD Member Role: Lifetime LEASING AGENT Physician Address: Address: [address] [place], [place] [address], [place] [address]- [place] Name: Jaja Champagne RN Position: S RN Member Role: Primary Care Nurse Name: Danielle Hernandez LPN Position: S RN Member Role: Primary Care Nurse Name: Nadia Diego RN Position: S RN Member Role: Primary Care Nurse Name: Glenys Cardenas RN Position: S RN Member Role: Primary Care Nurse Name: Izzy Escalante RN Position: [facility] RN Member Role: Primary Care Nurse Name: Vasu Joe DO Position: [facility] Physician - Primary Care Member Role: PCP Address: Address: [address] [place] [address] [address] [place] [address]- Name: Mai Hess RN Position: [facility] RN Member Role: Primary Care Nurse Name: Anna Reyes RN Position: [facility] RN Member Role: Primary Care Nurse Name: Mali Mosley RN Position: [facility] RN Member Role: Primary Care Nurse Care Team Related Persons Name: ASAEL BAZAN Address: [address] [place] [address] Name: KIRILL BAZAN Address: [address] [place] [address] Name: ZHOU BAZAN Address: [id number] Address: [address] [place] [address] [place]
--- OUTSIDE RECORDS SUMMARY | 2023-05-12 19:59 | XMS_ITS | Continuity of Care Document ---
Author Name Unknown Organization [facility] Address [address] [place] [address]- Care Team Providers Care Fork Repairer Name Role Phone Vasu Joe DO Primary Care Physician Encounter [facility] [place] Date(s): 05/23/22 - 05/30/22 [facility] [address] [place] [address]- Encounter Diagnosis Foot pain, left(Discharge Diagnosis) - 05/23/22 Left ankle pain(Discharge Diagnosis) - 05/23/22 Toe fracture(Discharge Diagnosis) - 05/23/22 Attending Physician: Angelito Coelho DO Referring Physician: Vasu Joe DO Allergies, Adverse Reactions, Alerts Substance Reaction Severity [...] 10/08/20 9:40:00 EDT, Route to Pharmacy Electronically, [facility]/pharmacy #[id number], Partial fill upon patient request if the [...] opioid drug. Start Date: 06/02/21 Status: Ordered Problem List Diagnosis Diagnosis Type Effective Dates Health Status Cl inical Service Informant Foot pain, left Discharge Diagnosis 05/23/22 Left ankle pain Discharge Diagnosis 05/23/22 Toe fracture Discharge Diagnosis 05/23/22 Vital Signs Most recent to oldest [Reference Range]: 1 Height 160 cm (05/23/22 10:56 AM) Oxygen Saturation [94-100 %] 98 % (05/23/22 10:56 AM) Pulse Rate [55-90 bpm] 89 bpm (05/23/22 10:56 AM) Blood Pressure [90-138/55-84 mm Hg] 138/ 89mm Hg (05/23/22 10:56 AM) Respiratory Rate [16-30 br/min] 18 br/mi n (05/23/22 10:56 AM) Temperature [96.8-100.4 DegF] 97.9 DegF (05/23/22 10:56 AM) Mode of Delivery (Oxygen) Room air (05/23/22 10:56 AM) Blood pressure sites Arm, left (05/23/22 10:56 AM) Temperature Route Temporal (05/23/22 10:56 AM) Social History Social History Type Response Tobacco Use: quit vapping th is week . Sex Note * Yael Morillo NP: PERFORM, SIGN, VERIFY Event Display: Patient Education/Instruction Authored Date: [id number] [facility] *[facility] Clinical Summary Name KEVIN BAZAN Age 32 Years 1990 PCP Vasu Joe DO PCP [facility]# [id number] Visit Date 05/23/2022 10:04:00 Patient Instructions F/U with [facility] today regarding if they want to see you for follow up Additional Instructions: Scheduled Appointments?? Future Appointments ?No Future Appointments Scheduled Follow-Up Instructions ?? Diagnosis Unspecified fracture of unspecified toe(s), initial encounter for closed fracture; Pain in left ankle and joints of left foot; Pain in left foot Medications: Please continue your medications until treatment is completed or stopped by your provider. Discuss any questions related to medications with your provider. Medications to Continue with No Changes These medications were not printed or sent to your pharmacy Albuterol (albuterol 90 mcg/inh inhalation powder) 2 puff(s) Inhalation every 4 hours as needed. Next Dose: Amphetamine-Dextroamphetamine (Adderall 30 mg oral tablet) 1 tab(s) Oral twice a day. Next Dose: Amphetamine-Dextroamphetamine (Adderall) Next Dose: Beclomethasone (Qvar 80 mcg/inh inhalation aerosol) 80 Microgram Inhalation twice a day. Next Dose: Buprenorphine 8 Milligram Sublingual 3 times a day. Next Dose: Buprenorphine-Naloxone (Suboxone 2 mg-0.5 mg sublingual film) Next Dose: Cetirizine (ZyrTEC 10 mg oral tablet) 1 tab(s) Oral Daily. Next Dose: Ciprofloxacin Ophthalmic (ciprofloxacin ophthalmic 0.3% solution) 2 Drops Ophthalmic every 4 hours for 7 Days. to right eye. Refills: 0. Next Dose: Clonazepam 0.5 mg By Mouth 3 times a day. Next Dose: DiphenhydrAMINE 50 Milligram Oral Daily at Bedtime. Next Dose: Docusate (docusate sodium 100 mg oral capsule) 1 capsule Oral twice a day. Refills: 0. Next Dose: Doxepin (doxepin 10 mg oral capsule) 1 capsule Oral 3 times a day. Next Dose: Gabapentin (gabapentin 300 mg oral capsule) 1 capsule Oral 3 times a day. Next Dose: Loratadine (Claritin 10 mg oral tablet) 1 tab(s) Oral Daily. Next Dose: Melatonin 3 Milligram Oral Daily at Bedtime. Next Dose: Metoclopramide (metoclopramide 5 mg oral tablet) 1 tab(s) Oral every 6 hours. Next Dose: Nicotine (Leader Nicotine Polacrilex 2 mg oral transmucosal gum) 2 Each Chew every 2 hours as needed as needed for smoking cessation. Next Dose: Nicotine (nicotine 14 mg/24 hr transdermal film, extended release) 1 patch(es) Topically Daily. Next Dose: Ondansetron (Zofran 4 mg oral tablet) 1 tab(s) Oral every 8 hours as needed Nausea & Vomiting. Refills: 0. Next Dose: Polyethylene Glycol 3350 (polyethylene glycol 3350 oral powder for reconstitution) 17 gram Oral Daily. dissolve in water before taking. Next Dose: Pregabalin (Lyrica 25 mg oral capsule) Next Dose: Quetiapine (SEROquel 25 mg oral tablet) 1 tab(s) Oral 3 times a day. Next Dose: Allergy Info:?? Bactrim; penicillin; amoxicillin Medications Given This Visit Future Orders ?No future orders Vital Signs Height 160 cm Weight BMI Blood Pressure 138 mm Hg/89 mm Hg Temperature 97.9 DegF Pulse Rate 89 bpm Respiratory Rate 18 br/min 02 Sat Mode of Delivery 98 %/Room air You can now view a summary of your hospital visit from the comfort of your home through a free online portal called [employer] [facility]. [employer] is a website that allows you to securely view your medical information including discharge summary, medications and follow-up visits. ??You can alsosend a secure electronic message to your doctor???s office to request appointments, renew medications or just ask a question. You can enroll at [email or web address] or register during your next office visit. Disclaimer:?? The information provided is of a general nature and is intended to be used in conjunction with the recommendations and advice of your health care practitioner. ??Every effort has been made to ensure that the information provided is accurate and complete at the time it is provided to you however, as your needs change, or, as new ??information becomes available, different or additional instructions may be required. If you have questions, please consult with your primary care provider or pharmacist, as appropriate. ??This information is not intended to serve as substitution for assessment and evaluation by a qualified health care provider. If you do not have a primary care provider, you may find a [facility] provider by calling [facility] at [phone]. For information about the plan of care including goals and instructions for your diagnosis, please see the patient education orders section of this document. Patient Education Materials?? The content of this educational material or handout may have been modified, supplemented, or adapted from its original content and format to support your individualized medical care. Closed Toe Fracture Your big toe is broken (fractured). This causes local pain, swelling, and bruising. This injury takes about 4 weeks to heal. Toe injuries are often treated by taping the injured toe to the next one (james taping). This protects the injured toe and holds it in position. If the toenail has been severely injured, it may fall off in 1 to 2 weeks. It takes up to 12 monthsfor a new toenail to grow back. Home care Follow these guidelines when caring for yourself at home: ??? You may be given a cast shoe to wear to keep your toe from moving. If not, you can use a sandalor any shoe that doesn???t put pressure on the injured toe until the swelling and pain go away. If using a sandal, be careful not to strike your foot against anything. Another injury could make the fracture worse. If you were given crutches, don???t put full weight on the injured foot until you humberto so without pain. ??? Keep your foot elevated to reduce pain and swelling. When sleeping, put a pillow under the injured leg. When sitting, support the injured leg so it is level with your waist. This is very important during the first 2 days (48 hours). ??? Put an ice pack on the injured area. Do this for 20 minutes every 1 to 2 hours the first day for pain relief. You can make an ice pack by wrapping a plastic bag of ice cubes in a thin towel. As the ice melts, be careful that any cloth or paper tape doesn???t get wet. Continue using the ice pack3 to 4 times a day for the next 2 days. Then use the ice pack as needed to ease pain and swelling. ??? If james tape was used and it becomes wet or dirty, change it. You may replace it with paper, plastic, or cloth tape. Cloth tape and paper tapes must be kept dry. ??? You may use acetaminophen or ibuprofen to control pain, unless another pain medicine was prescribed. If you have chronic liver or kidney disease, talk with your health care provider before using these medicines. Also talk with your provider if you???ve had a stomach ulcer or GI bleeding. ??? You may return to sports or physical education activities after 4 weeks, or when you can run without pain. Follow-up care Follow up with your health care provider in 1 week, or as advised. This is to make sure the bone ishealing the way it should. If X-rays were taken, a radiologist will look at them. You will be told of any new findings that may affect your care. When to seek medical advice Call your health care provider right away if any of these occur: ??? Pain or swelling gets worse ??? The cast cracks ??? The cast and padding get wet and stays wet more than 24 hours ??? Bad odor from the cast or wound fluid stains the cast ??? Tightness or pressure under the cast gets worse ??? Toe becomes cold, blue, numb, or tingly ??? You can???t move the toe ??? Signs of infection: fever, redness, warmth, swelling, or drainage from the wound??or cast ??? Fever of??101??F (38.3??C)??or higher, or as directed by your health care provider ?? [id number] [employer]. [address] [place] [address]. All rights reserved. This information is not intended as a substitute for professional medical care. Always follow your healthcare professional's instructions. * Cindy Ramos: PERFORM, SIGN, VERIFY Event Display: Patient Education/Instruction Authored Date: [id number] [facility] *[facility] Clinical Summary Name KEVIN BAZAN Age 32 Years 1990 PCP Vasu Joe DO PCP [facility]# [id number] Visit Date 05/23/2022 10:04:00 Additional Instructions: Scheduled Appointments?? Future Appointments ?No Future Appointments Scheduled Follow-Up Instructions ?? Diagnosis Pain in left ankle and joints of left foot; Pain in left foot Medications: Please continue your medications until treatment is completed or stopped by your provider. Discuss any questions related to medications with your provider. Medications to Continue with No Changes These medications were not printed or sent to your pharmacy Albuterol (albuterol 90 mcg/inh inhalation powder) 2 puff(s) Inhalation every 4 hours as needed. Next Dose: Amphetamine-Dextroamphetamine (Adderall 30 mg oral tablet) 1 tab(s) Oral twice a day. Next Dose: Amphetamine-Dextroamphetamine (Adderall) Next Dose: Beclomethasone (Qvar 80 mcg/inh inhalation aerosol) 80 Microgram Inhalation twice a day. Next Dose: Buprenorphine 8 Milligram Sublingual 3 times a day. Next Dose: Buprenorphine-Naloxone (Suboxone 2 mg-0.5 mg sublingual film) Next Dose: Cetirizine (ZyrTEC 10 mg oral tablet) 1 tab(s) Oral Daily. Next Dose: Ciprofloxacin Ophthalmic (ciprofloxacin ophthalmic 0.3% solution) 2 Drops Ophthalmic every 4 hours for 7 Days. to right eye. Refills: 0. Next Dose: Clonazepam 0.5 mg By Mouth 3 times a day. Next Dose: DiphenhydrAMINE 50 Milligram Oral Daily at Bedtime. Next Dose: Docusate (docusate sodium 100 mg oral capsule) 1 capsule Oral twice a day. Refills: 0. Next Dose: Doxepin (doxepin 10 mg oral capsule) 1 capsule Oral 3 times a day. Next Dose: Gabapentin (gabapentin 300 mg oral capsule) 1 capsule Oral 3 times a day. Next Dose: Loratadine (Claritin 10 mg oral tablet) 1 tab(s) Oral Daily. Next Dose: Melatonin 3 Milligram Oral Daily at Bedtime. Next Dose: Metoclopramide (metoclopramide 5 mg oral tablet) 1 tab(s) Oral every 6 hours. Next Dose: Nicotine (Leader Nicotine Polacrilex 2 mg oral transmucosal gum) 2 Each Chew every 2 hours as needed as needed for smoking cessation. Next Dose: Nicotine (nicotine 14 mg/24 hr transdermal film, extended release) 1 patch(es) Topically Daily. Next Dose: Ondansetron (Zofran 4 mg oral tablet) 1 tab(s) Oral every 8 hours as needed Nausea & Vomiting. Refills: 0. Next Dose: Polyethylene Glycol 3350 (polyethylene glycol 3350 oral powder for reconstitution) 17 gram Oral Daily. dissolve in water before taking. Next Dose: Pregabalin (Lyrica 25 mg oral capsule) Next Dose: Quetiapine (SEROquel 25 mg oral tablet) 1 tab(s) Oral 3 times a day. Next Dose: Allergy Info:?? Bactrim; penicillin; amoxicillin Medications Given This Visit Future Orders ?No future orders Vital Signs Height 160 cm Weight BMI Blood Pressure 138 mm Hg/89 mm Hg Temperature 97.9 DegF Pulse Rate 89 bpm Respiratory Rate 18 br/min 02 Sat Mode of Delivery 98 %/Room air You can now view a summary of your hospital visit from the comfort of your home through a free online portal called [facility]. [facility] is a website that allows you to securely view your medical information including discharge summary, medications and follow-up visits. ??You can alsosend a secure electronic message to your doctor???s office to request appointments, renew medications or just ask a question. You can enroll at [email or web address] or register during your next office visit. Disclaimer:?? The information provided is of a general nature and is intended to be used in conjunction with the recommendations and advice of your health care practitioner. ??Every effort has been made to ensure that the information provided is accurate and complete at the time it is provided to you however, as your needs change, or, as new ??information becomes available, different or additional instructions may be required. If you have questions, please consult with your primary care provider or pharmacist, as appropriate. ??This information is not intended to serve as substitution for assessment and evaluation by a qualified health care provider. If you do not have a primary care provider, you may find a [facility] provider by calling [facility] at [phone]. For information about the plan of care including goals and instructions for your diagnosis, please see the patient education orders section of this document. Patient Education Materials?? The content of this educational material or handout may have been modified, supplemented, or adapted from its original content and format to support your individualized medical care. * Cindy Ramos: PERFORM, SIGN, VERIFY Event Display: Patient Education/Instruction Authored Date: [facility] *[facility] Clinical Summary Name KEVIN BAZAN Age 32 Years 1990 PCP Vasu Joe DO PCP Visit Date 05/23/2022 10:04:00 Additional Instructions: Scheduled Appointments?? Future Appointments ?No Future Appointments Scheduled Follow-Up Instructions ?? Diagnosis Pain in left ankle and joints of left foot; Pain in left foot Medications: Please continue your medications until treatment is completed or stopped by your provider. Discuss any questions related to medications with your provider. Medications to Continue with No Changes These medications were not printed or sent to your pharmacy Albuterol (albuterol 90 mcg/inh inhalation powder) 2 puff(s) Inhalation every 4 hours as needed. Next Dose: Amphetamine-Dextroamphetamine (Adderall 30 mg oral tablet) 1 tab(s) Oral twice a day. Next Dose: Amphetamine-Dextroamphetamine (Adderall) Next Dose: Beclomethasone (Qvar 80 mcg/inh inhalation aerosol) 80 Microgram Inhalation twice a day. Next Dose: Buprenorphine 8 Milligram Sublingual 3 times a day. Next Dose: Buprenorphine-Naloxone (Suboxone 2 mg-0.5 mg sublingual film) Next Dose: Cetirizine (ZyrTEC 10 mg oral tablet) 1 tab(s) Oral Daily. Next Dose: Ciprofloxacin Ophthalmic (ciprofloxacin ophthalmic 0.3% solution) 2 Drops Ophthalmic every 4 hours for 7 Days. to right eye. Refills: 0. Next Dose: Clonazepam 0.5 mg By Mouth 3 times a day. Next Dose: DiphenhydrAMINE 50 Milligram Oral Daily at Bedtime. Next Dose: Docusate (docusate sodium 100 mg oral capsule) 1 capsule Oral twice a day. Refills: 0. Next Dose: Doxepin (doxepin 10 mg oral capsule) 1 capsule Oral 3 times a day. Next Dose: Gabapentin (gabapentin 300 mg oral capsule) 1 capsule Oral 3 times a day. Next Dose: Loratadine (Claritin 10 mg oral tablet) 1 tab(s) Oral Daily. Next Dose: Melatonin 3 Milligram Oral Daily at Bedtime. Next Dose: Metoclopramide (metoclopramide 5 mg oral tablet) 1 tab(s) Oral every 6 hours. Next Dose: Nicotine (Leader Nicotine Polacrilex 2 mg oral transmucosal gum) 2 Each Chew every 2 hours as needed as needed for smoking cessation. Next Dose: Nicotine (nicotine 14 mg/24 hr transdermal film, extended release) 1 patch(es) Topically Daily. Next Dose: Ondansetron (Zofran 4 mg oral tablet) 1 tab(s) Oral every 8 hours as needed Nausea & Vomiting. Refills: 0. Next Dose: Polyethylene Glycol 3350 (polyethylene glycol 3350 oral powder for reconstitution) 17 gram Oral Daily. dissolve in water before taking. Next Dose: Pregabalin (Lyrica 25 mg oral capsule) Next Dose: Quetiapine (SEROquel 25 mg oral tablet) 1 tab(s) Oral 3 times a day. Next Dose: Allergy Info:?? Bactrim; penicillin; amoxicillin Medications Given This Visit Future Orders ?No future orders Vital Signs Height 160 cm Weight BMI Blood Pressure 138 mm Hg/89 mm Hg Temperature 97.9 DegF Pulse Rate 89 bpm Respiratory Rate 18 br/min 02 Sat Mode of Delivery 98 %/Room air You can now view a summary of your hospital visit from the comfort of your home through a free online portal called [employer] [facility]. [employer] is a website that allows you to securely view your medical information including discharge summary, medications and follow-up visits. ??You can alsosend a secure electronic message to your doctor???s office to request appointments, renew medications or just ask a question. You can enroll at [email or web address] or register during your next office visit. Disclaimer:?? The information provided is of a general nature and is intended to be used in conjunction with the recommendations and advice of your health care practitioner. ??Every effort has been made to ensure that the information provided is accurate and complete at the time it is provided to you however, as your needs change, or, as new ??information becomes available, different or additional instructions may be required. If you have questions, please consult with your primary care provider or pharmacist, as appropriate. ??This information is not intended to serve as substitution for assessment and evaluation by a qualified health care provider. If you do not have a primary care provider, you may find a [facility] provider by calling [facility] at [phone]. For information about the plan of care including goals and instructions for your diagnosis, please see the patient education orders section of this document. Patient Education Materials?? The content of this educational material or handout may have been modified, supplemented, or adapted from its original content and format to support your individualized medical care. Patient Care team information Care Team Personnel Name: Seven Raines MD Position: [facility] REVERSING MILL ROLLER MD Member Role: [employer]ING [employer]LLER Physician Address: Address: [address] [place] [address] Name: Vasu Joe DO Position: [facility] Physician (General Medicine) Member Role: PCP Address: Address: [address] [place] [address] [address] Care Team Related Persons Name: ASAEL BAZAN Address: [address] [place] [address] Name: KIRILL BAZAN Address: [address] [place] [address] Name: ZHOU BAZAN Address: Address: [address]
--- OUTSIDE RECORDS SUMMARY | 2023-05-12 19:59 | XMS_ITS | Continuity of Care Document ---
Author Name Unknown Organization [facility] Address [address] [place] [address] mario alberto, [address] [place] [address]- Care Team Providers Care Music Grapher Name Role Phone Vasu Joe DO Primary Care Physician [place] [facility] [place] - 02/13/23 [facility] [address] [place] [address] Drive, [address] [place] [address]- Allergies, Adverse Reactions, Alerts Substance Reaction Severity [...] Refills, Soft Stop, 02/13/23 15:55:00 EDT, Tablet, [facility]/pharmacy #[id number], Partial fill upon patient request if the prescription is for a schedule II opioid drug., carter Rocha, 0... Start Date: 02/13/23 Status: Ordered Buprenorphine = 8 mg, Sublingual, 3 times a day, 0 Refills, Maintenance, 10/03/20 10:35:00 EDT, Partial fill uponpatient request if the prescription is for a schedule II opioid drug. Start Date: 10/03/20 Status: Ordered cefpodoxime 200 mg oral tablet 1 tablet = 200 mg, By Mouth, Every 12 hours, for 5 days, # 10 tablet, 0 Refills, Acute 02/18/23 15:54:00 EDT, 02/13/23 15:54:00 EDT, Tablet, [facility]/pharmacy #[id number], Partial fill upon patient request if the prescription is for a schedule II opioid drug., 1... Start Date: 02/13/23 Stop Date: 02/18/23 Status: Ordered cholecalciferol oral tablet See Instructions, By Mouth Daily, # 30 tablet, 0 Refills, Maintenance, 11/23/22 13:00:00 EDT, Tablet, [facility] 3, Partial fill upon patient request if the prescription is for a scheduleII opioid drug., carter Rocha, 11/23/22 6:21:00 EDT, Hei... Start Date: 11/23/22 [...] 11/23/22 13:00:00 EDT, Route to Pharmacy Electronically, [facility] 3, Partial fill upon patient request [...] EDT, Route to Pharmacy Electronically, [facility] 3, Partial fill uponpatient request if the prescription is for a schedu... Start Date: 11/23/22 Stop Date: 12/07/22 Status: Ordered docusate sodium 100 mg oral capsule 100 mg, 1, capsule, By Mouth, 2 times a day, # 60 capsule, Refills 0, Tot. Refills 0, Maintenance, 10/08/20 9:40:00 EDT, [id number] Partial fill upon patient request if [...] Maintenance, 11/23/2312:01:00 EDT, Route to Pharmacy Electronically, [facility], Partial fill upon patientrequest if the prescription is for a schedule II op... Start Date: 11/23/22 Stop Date: 12/07/22 Status: Ordered gabapentin 300 mg oral capsule 600 mg, 2, capsule, By Mouth, 3 times a day, # 180 capsule, Refills 0, Tot. Refills 0, Maintenance,11/23/22 13:00:00 EDT, Route to Pharmacy Electronically, [facility], Partial fill upon patient [...] 0 Refills, Maintenance, 11/23/22 13:01:00 EDT, Capsule, [facility], Partial fill upon patient [...] Refills, Maintenance, 11/23/22 14:08:00 EDT, ER Capsule, [facility], Partial fill upon patient [...] Device Type Site Open Reduction Internal Fixation Tza Garland MD 11/07/22 Unknown Arm Lower Device [...] Device Type Site Open Reduction Internal Fixation Rosana/Taz Granados MD 11/07/22 Unknown Arm Lower Device Identifier Serial Number Lot or Batch Number Manufacturing Date Expiration Date Distinct Identification Code MRI Safety Implantable Status Assigning Authority Unknown Unknown Unknown Unknown 11/07/22 Unknown Unknown Active Unkn own Procedure Provider Procedure Date Device Type Site Open Reduction Internal Fixation Rosana/Taz Granados MD 11/07/22 Unknown Arm Lower Device Identifier Serial Number Lot or Batch Number Manufacturing Date Expiration Date Distinct Identification Code MRI Safety Implantable Status Assigning Authority Unknown Unknown Unknown Unknown 11/07/22 Unknown Unknown Active Unkn own Procedure Provider Procedure Date Device Type Site Open Reduction Internal Fixation Rosana/Ra Taz Briseno MD 11/07/22 Unknown Arm Lower Device Identifier Serial Number Lot or Batch Number Manufacturing Date Expiration Date Distinct Identification Code MRI Safety Implantable Status Assigning Authority Unknown Unknown Unknown Unknown 11/07/22 Unknown Unknown Active Unkn own Patient Care team information Care Team Personnel Name: Carla Cooley RN Position: [facility] RN Member Role: Primary Care Nurse Name: Robbie Pichardo RN Position: [facility] RN Member Role: Primary Care Nurse Name: Juwan Gerber RN Position: [facility] RN Member Role: Primary Care Nurse Name: Seven Raines MD Position: [facility] ADOLESCENT MEDICINE SPECIALIST MD Member Role: Lifetime ADOLESCENT MEDICINE SPECIALIST Physician Address: Address: [address] [place] [address]- Name: Jaja Champagne RN Position: [facility] RN Member Role: Primary Care Nurse Name: Danielle Hernandez LPN Position: [facility] RN Member Role: Primary Care Nurse Name: Nadia Diego RN Position: [facility] RN Member Role: Primary Care Nurse Name: Glenys Cardenas RN Position: [facility] RN Member Role: Primary Care Nurse Name: Izzy Escalante RN Position: [facility] RN Member Role: Primary Care Nurse Name: Vasu Joe DO Position: [facility] Physician - Primary Care Member Role: PCP Address: Address: [address] [place] [address]- [place] Name: Mai Hess RN Position: [facility] RN Member Role: Primary Care Nurse Name: Anna Reyes RN Position: S RN Member Role: Primary Care Nurse Name: Mali Mosley RN Position: S RN Member Role: Primary Care Nurse Care Team Related Persons Name: HORTENSIAMICHEL VARGASINE Address: home [address] [place] [address] Name: KIRILL BAZAN Address: home [address] [place] [address] Name: ZHOU BAZAN Address: [address] Address: home [address] [address] [place]
--- OUTSIDE RECORDS SUMMARY | 2023-05-12 19:59 | XMS_ITS | Continuity of Care Document ---
Author Name Unknown Organization [facility] Address [address] [place] [address]- Care Team Providers Care Pin Cleaner Name Role Phone Vasu Joe DO Primary Care Physician [place] [facility] [place] 03/08/23 [facility] [address] [place] [address]- Attending Physician: Jose Luis Figueroa Admitting Physician: AdmJose Luis walker Referring Physician: AdmtrJose Luis Allergies, Adverse Reactions, Alerts Substance Reaction Severity [...] Refills, Soft Stop, 02/13/23 15:55:00 EDT, Tablet, [facility]/pharmacy #[id number], Partial fill upon patient request if the prescription is for a schedule II opioid drug., 165, cm, 0... Start Date: 02/13/23 Status: Ordered Buprenorphine = 8 mg, Sublingual, 3 times a day, 0 Refills, Maintenance, 10/03/20 10:35:00 EDT, Partial fill uponpatient request if the prescription is for a schedule II opioid drug. Start Date: 10/03/20 Status: Ordered cholecalciferol oral tablet See Instructions, By Mouth Daily, # 30 tablet, 0 Refills, Maintenance, 11/23/22 13:00:00 EDT, Tablet, [facility] 3, Partial fill upon patient request if [...] 11/23/22 13:00:00 EDT, Route to Pharmacy Electronically, [facility] 3, Partial fill upon patient request if... [...] 11/23/22 13:00:00 EDT, Route to Pharmacy Electronically, [facility], Partial fill uponpatient request if the prescription is for a schedu... Start Date: 11/23/22 Stop Date: 12/07/22 Status: Ordered docusate sodium 100 mg oral capsule 100 mg, 1, capsule, By Mouth, 2 times a day, # 60 capsule, Refills 0, Tot. Refills 0, Maintenance, 10/08/20 9:40:00 EDT, [id number] Partial fill upon patient request if [...] 11/23/2312:01:00 EDT, Route to Pharmacy Electronically, [facility], Partial fill upon patientrequest if the prescription is for a schedule II op... Start Date: 11/23/22 Stop Date: 12/07/22 Status: Ordered gabapentin 300 mg oral capsule 600 mg, 2, capsule, By Mouth, 3 times a day, # 180 capsule, Refills 0, Tot. Refills 0, Maintenance,11/23/22 13:00:00 EDT, Route to Pharmacy Electronically, [facility], Partial fill upon patient [...] Refills, Maintenance, 11/23/22 13:01:00 EDT, Capsule, [facility], Partial fill upon patient request if [...] Maintenance, 11/23/22 14:08:00 EDT, ER Capsule, [facility], Partial fill upon patient [...] Device Type Site Open Reduction Internal Fixation Ulna/Ra Taz Briseno MD 11/07/22 Unknown Arm Lower Device Identifier Serial Number Lot or Batch Number Manufacturing Date Expiration Date Distinct Identification Code MRI Safety Implantable Status Assigning Authority Unknown Unknown Unknown Unknown 11/07/22 Unknown Unknown Active Unkn own Procedure Provider Procedure Date Device Type Site Open Reduction Internal Fixation Ulna/Ra Taz Briseno MD 11/07/22 Unknown Arm Lower Device Identifier Serial Number Lot or Batch Number Manufacturing Date Expiration Date Distinct Identification Code MRI Safety Implantable Status Assigning Authority Unknown Unknown Unknown Unknown 11/07/22 Unknown Unknown Active Unkn own Patient Care team information Care Team Personnel Name: Carla Cooley RN Position: S RN Member Role: Primary Care Nurse Name: Robbie Pichardo RN Position: [facility] RN Member Role: Primary Care Nurse Name: Juwan Gerber RN Position: [facility] RN Member Role: Primary Care Nurse Name: Seven Raines MD Position: [facility] VP REVENUE CYCLE MD Member Role: Lifetime VP REVENUE CYCLE Physician Address: Address: [address] [place] [address]- Name: Jaja Champagne RN Position: [facility] RN Member Role: Primary Care Nurse Name: Danielle Hernandez LPN Position: [facility] RN Member Role: Primary Care Nurse Name: Nadia Diego RN Position: [facility] RN Member Role: Primary Care Nurse Name: Glenys Cardenas RN Position: [facility] RN Member Role: Primary Care Nurse Name: Izzy Escalante RN Position: [facility] RN Member Role: Primary Care Nurse Name: Vasu Joe DO Position: [facility] Physician - Primary Care Member Role: PCP Address: Address: [address] [place] [address] [address] [place] [address]- [place] Name: Mai Hess RN Position: [facility] RN Member Role: Primary Care Nurse Name: Anna Reyes RN Position: [facility] RN Member Role: Primary Care Nurse Name: Mali Mosley RN Position: [facility] RN Member Role: Primary Care Nurse Care Team Related Persons Name: ASAEL BAZAN Address: home [address] [place] [address] Name: KIRILL BAZAN Address: [address] [place] [address] Name: ZHOU BAZAN Address: Address: home [address] [place] [address]
--- OUTSIDE RECORDS SUMMARY | 2023-05-12 19:59 | XMS_ITS | Continuity of Care Document ---
Author Name Unknown Organization [facility] Address [address] [place] [address], [address] [place] [address]- Care Team Providers Care Conveyor Feeder Name Role Phone Vasu Joe DO Primary Care Physician [place] [facility] [place] 01/04/23 [facility] [address] [place] [address] Drive, [address] [place] [address]- Attending Physician: Bridget Dykes DO Allergies, Adverse Reactions, Alerts Substance Reaction [...] 0 Refills, Maintenance, 11/23/22 13:00:00 EDT, Tablet, [facility], Partial fill upon patient request [...] 11/23/22 13:00:00 EDT, Route to Pharmacy Electronically, [facility] 3, Partial fill upon patient request [...] 11/23/22 13:00:00 EDT, Route to Pharmacy Electronically, [facility], Partial fill uponpatient request if the prescription is for a schedu... Start Date: 11/23/22 Stop Date: 12/07/22 Status: Ordered docusate sodium 100 mg oral capsule 100 mg, 1, capsule, By Mouth, 2 times a day, # 60 capsule, Refills 0, Tot. Refills 0, Maintenance, 10/08/20 9:40:00 EDT, [id number] fill upon patient [...] Maintenance, 11/23/2312:01:00 EDT, Route to Pharmacy Electronically, [facility], Partial fill upon patientrequest if the prescription is for a schedule II op... Start Date: 11/23/22 Stop Date: 12/07/22 Status: Ordered gabapentin 300 mg oral capsule 600 mg, 2, capsule, By Mouth, 3 times a day, # 180 capsule, Refills 0, Tot. Refills 0, Maintenance,11/23/22 13:00:00 EDT, Route to Pharmacy Electronically, [facility], Partial fill upon patient [...] 0 Refills, Maintenance, 11/23/22 13:01:00 EDT, Capsule, [facility], Partial fill upon patient [...] Refills, Maintenance, 11/23/22 14:08:00 EDT, ER Capsule, [facility], Partial fill upon patient [...] Device Type Site Open Reduction Internal Fixation Peewee/Taz Granados MD 11/07/22 Unknown Arm Lower Device Identifier Serial Number Lot or Batch Number Manufacturing Date Expiration Date Distinct Identification Code MRI Safety Implantable Status Assigning Authority Unknown Unknown Unknown Unknown 11/07/22 Unknown Unknown Active Unkn own Procedure Provider Procedure Date Device Type Site Open Reduction Internal Fixation Peewee/Taz Granados MD 11/07/22 Unknown Arm Lower Device [...] Care Nurse Name: Juwan Gerber RN Position: S RN Member Role: Primary Care Nurse Name: Seven Raines MD Position: [facility] DIRECTOR AGRICULTURAL SERVICES MD Member Role: Lifetime DIRECTOR AGRICULTURAL SERVICES Physician Address: Address: [address] [place] [address] Name: Jaja Champagne RN Position: [facility] RN Member Role: Primary Care Nurse Name: Danielle Hernandez LPN Position: [facility] RN Member Role: Primary Care Nurse Name: Nadia Diego RN Position: [facility] RN Member Role: Primary Care Nurse Name: Glenys Cardenas RN Position: [facility] RN Member Role: Primary Care Nurse Name: Izzy Escalante RN Position: [facility] RN Member Role: Primary Care Nurse Name: Vasu Joe DO Position: [facility] Physician - Primary Care Member Role: PCP Address: Address: [address] [place] [address] [address] [place] [address]- Name: Mai Hess RN Position: [facility] RN Member Role: Primary Care Nurse Name: Anna Reyes RN Position: [facility] RN Member Role: Primary Care Nurse Name: Mali Mosley RN Position: [facility] RN Member Role: Primary Care Nurse Care Team Related Persons Name: ASAEL BAZAN Address: home [address] [place] [address] Name: KIRILL BAZAN Address: home [address] [place] [address] Name: ZHOU BAZAN Address: [address] Address: home [address] [place] [address]
--- OUTSIDE RECORDS SUMMARY | 2023-05-12 19:59 | XMS_ITS | Continuity of Care Document ---
Author Name Unknown Organization [facility] Address [address] [place] [address] mario alberto, [address] [place] [address]- Care Team Providers Care Appliance Repairer Name Role Phone Vasu Joe DO Primary Care Physician En[place] [facility] [place]s): 04/10/23 - 05/10/23 [facility] [address] [place] [address], [address] [place], [place] [address] Attending Physician: AdmJose Luis walker Admitting Physician: AdmtrJose Luis Referring Physician: Admtr, Ar8 Allergies, Adverse Reactions, Alerts Substance Reaction Severity [...] Stop, 02/13/23 15:55:00 EDT, Tablet, [facility]/pharmacy #[id number], Partial fill upon [...] 0 Refills, Maintenance, 11/23/22 13:00:00 EDT, Tablet, [facility] 3, Partial fill upon patient [...] 11/23/22 13:00:00 EDT, Route to Pharmacy Electronically, [facility], Partial fill upon patient request if... [...] 11/23/22 13:00:00 EDT, Route to Pharmacy Electronically, [facility] 3, Partial fill uponpatient request if the prescription is for a schedu... Start Date: 11/23/22 Stop Date: 12/07/22 Status: Ordered docusate sodium 100 mg oral capsule 100 mg, 1, capsule, By Mouth, 2 times a day, # 60 capsule, Refills 0, Tot. Refills 0, Maintenance, 10/08/20 9:40:00 EDT, [id number] fill upon patient request [...] Maintenance, 11/23/2312:01:00 EDT, Route to Pharmacy Electronically, [facility] 3, Partial fill upon patientrequest if the prescription is for a schedule II op... Start Date: 11/23/22 Stop Date: 12/07/22 Status: Ordered gabapentin 300 mg oral capsule 600 mg, 2, capsule, By Mouth, 3 times a day, # 180 capsule, Refills 0, Tot. Refills 0, Maintenance,11/23/22 13:00:00 EDT, Route to Pharmacy Electronically, [facility], Partial fill upon patient [...] 0 Refills, Maintenance, 11/23/22 13:01:00 EDT, Capsule, [facility], Partial fill upon patient [...] Refills, Maintenance, 11/23/22 14:08:00 EDT, ER Capsule, [facility] 3, Partial fill upon patient [...] Device Type Site Open Reduction Internal Fixation Ulna/Taz Granados MD 11/07/22 Unknown Arm Lower Device [...] Team Personnel Name: Carla Cooley RN Position: [facility] RN Member Role: Primary Care Nurse Name: Robbie Pichardo RN Position: [facility] RN Member Role: Primary Care Nurse Name: Seven Raines MD Position: [facility] SHIP'S PILOT MD Member Role: Lifetime SHIP'S PILOT Physician Address: Address: [address] [place] [address]- Name: Jaja Champagne RN Position: [facility] RN Member Role: Primary Care Nurse Name: Danielle Hernandez LPN Position: [facility] RN Member Role: Primary Care Nurse Name: Nadia Diego RN Position: [facility] RN Member Role: Primary Care Nurse Name: Glenys Cardenas RN Position: [facility] RN Member Role: Primary Care Nurse Name: Izzy Escalante RN Position: [facility] RN Member Role: Primary Care Nurse Name: Vasu Joe DO Position: [facility] Physician - Primary Care Member Role: PCP Address: Address: [address] [place] [id number]- [place] Name: Mai Hess RN Position: [facility] RN Member Role: Primary Care Nurse Name: Anna Reyes RN Position: [facility] RN Member Role: Primary Care Nurse Name: Mali Mosley RN Position: [facility] RN Member Role: Primary Care Nurse Care Team Related Persons Name: ASAEL BAZAN Address: home [address] [place] [address] Name: KIRILL BAZAN Address: [address] [place] [address] Name: ZHOU BAZAN Address: Address: [address] [place] [address]
--- OUTSIDE RECORDS SUMMARY | 2023-05-12 19:59 | XMS_ITS | Continuity of Care Document ---
Author Name Unknown Organization [facility] Address [address] [place] [address] mario alberto, [address] [place] [address]- Care Team Providers Care Senior Inspector Name Role Phone Vasu Joe DO Primary Care Physician [place] [facility] [place]23 - 05/10/23 [facility] [address] [place] [address], [address] [place], [place] [address] Attending Physician: Roro Dejesus MD Referring Physician: Vasu Joe DO Allergies, Adverse [...] Soft Stop, 02/13/23 15:55:00 EDT, Tablet, [facility]/pharmacy #[id number], Partial fill upon patient request if [...] 0 Refills, Maintenance, 11/23/22 13:00:00 EDT, Tablet, [facility] 3, Partial fill upon patient request [...] 11/23/22 13:00:00 EDT, Route to Pharmacy Electronically, [facility] 3, Partial fill upon patient request [...] 11/23/22 13:00:00 EDT, Route to Pharmacy Electronically, [facility], Partial fill uponpatient request if the prescription is for a schedu... Start Date: 11/23/22 Stop Date: 12/07/22 Status: Ordered docusate sodium 100 mg oral capsule 100 mg, 1, capsule, By Mouth, 2 times a day, # 60 capsule, Refills 0, Tot. Refills 0, Maintenance, 10/08/20 9:40:00 EDT, [id number] fill upon patient request [...] Maintenance, 11/23/2312:01:00 EDT, Route to Pharmacy Electronically, [facility], Partial fill upon patientrequest if the prescription is for a schedule II op... Start Date: 11/23/22 Stop Date: 12/07/22 Status: Ordered gabapentin 300 mg oral capsule 600 mg, 2, capsule, By Mouth, 3 times a day, # 180 capsule, Refills 0, Tot. Refills 0, Maintenance,11/23/22 13:00:00 EDT, Route to Pharmacy Electronically, [facility], Partial fill upon patient [...] 0 Refills, Maintenance, 11/23/22 13:01:00 EDT, Capsule, [facility], Partial fill upon patient [...] Refills, Maintenance, 11/23/22 14:08:00 EDT, ER Capsule, [facility], Partial fill upon patient [...] Team Personnel Name: Carla Cooley RN Position: [facility] RN Member Role: Primary Care Nurse Name: Robbie Pichardo RN Position: [facility] RN Member Role: Primary Care Nurse Name: Seven Raines MD Position: [facility] BONDING SUPERVISOR MD Member Role: Lifetime BONDING SUPERVISOR Physician Address: Address: [address] [place] [address]- Name: Jaja Champagne RN Position: [facility] RN Member Role: Primary Care Nurse Name: Danielle Hernandez LPN Position: [facility] RN Member Role: Primary Care Nurse Name: Nadia Diego RN Position: [facility] RN Member Role: Primary Care Nurse Name: Glenys Cardenas RN Position: [facility] RN Member Role: Primary Care Nurse Name: Izzy Escalante RN Position: [facility] RN Member Role: Primary Care Nurse Name: Vasu Joe DO Position: [facility] Physician - Primary Care Member Role: PCP Address: Address: [address] [place], [place] [id number] [place] [address]- Name: Mai Hess RN Position: [facility] RN Member Role: Primary Care Nurse Name: Anna Reyes RN Position: [facility] RN Member Role: Primary Care Nurse Name: Mali Mosley RN Position: [facility] RN Member Role: Primary Care Nurse Care Team Related Persons Name: ASAEL BAZAN Address: home [address] [place] [address] Name: KIRILL BAZAN Address: [address] [place] [address] Name: ZHOU BAZAN Address: Address: home [address] [place] [address] [place]
--- OUTSIDE RECORDS SUMMARY | 2023-05-12 19:59 | XMS_ITS | Continuity of Care Document ---
Author Name Unknown Organization [facility] Address [address] [place] [address] mario alberto, [address] [place] [address]- Care Team Providers Care Tuft Machine Operator Name Role Phone Vasu Joe DO Primary Care Physician Encounter [facility] Date(s): 02/06/23 - 03/08/23 [facility] [address] [place] [address] Drive, [address] [place], [place] [address] Allergies, Adverse Reactions, Alerts Substance Reaction Severity [...] Soft Stop, 02/13/23 15:55:00 EDT, Tablet, [facility]pharmacy #[id number], Partial fill upon patient [...] 0 Refills, Maintenance, 11/23/22 13:00:00 EDT, Tablet, [facility], Partial fill upon patient request if [...] 11/23/22 13:00:00 EDT, Route to Pharmacy Electronically, [facility], Partial fill upon patient request [...] 11/23/22 13:00:00 EDT, Route to Pharmacy Electronically, [facility], Partial fill uponpatient request if the prescription is for a schedu... Start Date: 11/23/22 Stop Date: 12/07/22 Status: Ordered docusate sodium 100 mg oral capsule 100 mg, 1, capsule, By Mouth, 2 times a day, # 60 capsule, Refills 0, Tot. Refills 0, Maintenance, 10/08/20 9:40:00 EDT, [id number] Partial fill upon patient request if [...] Maintenance, 11/23/2312:01:00 EDT, Route to Pharmacy Electronically, [facility], Partial fill upon patientrequest if the prescription is for a schedule II op... Start Date: 11/23/22 Stop Date: 12/07/22 Status: Ordered gabapentin 300 mg oral capsule 600 mg, 2, capsule, By Mouth, 3 times a day, # 180 capsule, Refills 0, Tot. Refills 0, Maintenance,11/23/22 13:00:00 EDT, Route to Pharmacy Electronically, [facility], Partial fill upon patient [...] 0 Refills, Maintenance, 11/23/22 13:01:00 EDT, Capsule, [facility], Partial fill upon patient [...] Refills, Maintenance, 11/23/22 14:08:00 EDT, ER Capsule, [facility], Partial fill upon patient [...] Team Personnel Name: Carla Cooley RN Position: [facility] RN Member Role: Primary Care Nurse Name: Robbie Pichardo RN Position: S RN Member Role: Primary Care Nurse Name: Juwan Gerber RN Position: [facility] RN Member Role: Primary Care Nurse Name: Seven Raines MD Position: [facility] CLIENT SERVICE REPRESENTATIVE MD Member Role: Lifetime CLIENT SERVICE REPRESENTATIVE Physician Address: Address: [address] [place] [address]- Name: Jaja Champagne RN Position: [facility] RN Member Role: Primary Care Nurse Name: Danielle Hernandez LPN Position: [facility] RN Member Role: Primary Care Nurse Name: Nadia Diego RN Position: [facility] RN Member Role: Primary Care Nurse Name: Glenys Cardenas RN Position: [facility] RN Member Role: Primary Care Nurse Name: Izzy Escalante RN Position: [facility] RN Member Role: Primary Care Nurse Name: Vasu Joe DO Position: [facility] Physician - Primary Care Member Role: PCP Address: Address: [address] [place], [place] [id number] [place] [address]- Name: Mai Hess RN Position: [facility] RN Member Role: Primary Care Nurse Name: Anna Reyes RN Position: [facility] RN Member Role: Primary Care Nurse Name: Mali Mosley RN Position: [facility] RN Member Role: Primary Care Nurse Care Team Related Persons Name: ASAEL BAZAN Address: home [address] [place] [address] Name: KIRILL BAZAN Address: home [address] [place] [address] Name: ZHOU BAZAN Address: [address] Address: home [address] [place] [address] [place]
--- OUTSIDE RECORDS SUMMARY | 2023-05-12 19:59 | XMS_ITS | Continuity of Care Document ---
Author Name Unknown Organization [facility] Address [address] [place] [address] ve [address] [place] [address]- Care Team Providers Care Nursery Teacher Name Role Phone Vasu Joe DO Primary Care Physician [place] [facility] 12/19/22 - 12/26/[address] [place] [address]- Attending Physician: Stevan Floyd MD Allergies, Adverse Reactions, Alerts Substance Reaction [...] 0 Refills, Maintenance, 11/23/22 13:00:00 EDT, Tablet[facility], Partial fill upon patient request [...] 11/23/22 13:00:00 EDT, Route to Pharmacy Electronically, [facility] 3, Partial fill upon patient request [...] 11/23/22 13:00:00 EDT, Route to Pharmacy Electronically, [facility], Partial fill uponpatient request if the prescription is for a schedu... Start Date: 11/23/22 Stop Date: 12/07/22 Status: Ordered docusate sodium 100 mg oral capsule 100 mg, 1, capsule, By Mouth, 2 times a day, # 60 capsule, Refills 0, Tot. Refills 0, Maintenance, 10/08/20 9:40:00 EDT, [id number], Partial fill upon patient request [...] Maintenance, 11/23/2312:01:00 EDT, Route to Pharmacy Electronically, [facility], Partial fill upon patientrequest if the prescription is for a schedule II op... Start Date: 11/23/22 Stop Date: 12/07/22 Status: Ordered gabapentin 300 mg oral capsule 600 mg, 2, capsule, By Mouth, 3 times a day, # 180 capsule, Refills 0, Tot. Refills 0, Maintenance,11/23/22 13:00:00 EDT, Route to Pharmacy Electronically, [facility], Partial fill upon patient [...] 0 Refills, Maintenance, 11/23/22 13:01:00 EDT, Capsule, [facility], Partial fill upon patient [...] Refills, Maintenance, 11/23/22 14:08:00 EDT, ER Capsule, [facility], Partial fill upon patient [...] opioid drug. Start Date: 06/02/21 Status: Ordered Vital Signs Most recent to oldest [Reference Range]: 1 Weight 60.2 kg (12/19/22 1:08 PM) Pulse Rate [55-90 bpm] 87 bpm (12/19/22 1:08 PM) Blood Pressure [90-138/55-84 mm Hg] 148/ 94mm Hg *H* (12/19/22 1:08 PM) Temperature [96.8-100.4 DegF] 96.2 DegF *L* (12/19/22 1:08 PM) Blood pressure sites Arm, left (12/19/22 1:08 PM) Temperature Route Temporal (12/19/22 1:08 PM) Weight Obtained Via Standing scale (12/19/22 1:08 PM) Social History Social History Type Response [...] Care Nurse Name: Seven Raines MD Position: [facility] CEMENT CONVEYOR OPERATOR MD Member Role: Lifetime CEMENT CONVEYOR OPERATOR Physician Address: Address: [address] [place] [address] Name: aJja Champagne RN Position: [facility] RN Member Role: Primary Care Nurse Name: Danielle Hernandez LPN Position: S RN Member Role: Primary Care Nurse Name: Nadia Diego RN Position: S RN Member Role: Primary Care Nurse Name: Glenys Cardenas RN Position: [facility] RN Member Role: Primary Care Nurse Name: Izzy Escalante RN Position: [facility] RN Member Role: Primary Care Nurse Name: Vasu Joe DO Position: [facility] Physician - Primary Care Member Role: PCP Address: Address: [address] [place], [place] [id number] [place], [place] [address] Name: Mai Hess RN Position: S RN Member Role: Primary Care Nurse Name: Anna Reyes RN Position: S RN Member Role: Primary Care Nurse Name: Mali Mosley RN Position: S RN Member Role: Primary Care Nurse Care Team Related Persons Name: ASAEL BAZAN Address: home [address] [place] [address] Name: KIRILL BAZAN Address: home [address] [place] [address] Name: ZHOU BAZAN Address: Address: home [address] [place] [address] [place]
--- OUTSIDE RECORDS SUMMARY | 2023-05-12 19:59 | XMS_ITS | Continuity of Care Document ---
Author Name Unknown Organization [facility] Address [address] [place] [address], [address] [place] [address]- Care Team Providers Care Manager Interventional Name Role Phone Vasu Joe DO Primary Care Physician Encounter [facility] [place] Date(s): 03/15/23 - 05/03/23 [facility] [address] [place] [address], [address] [place] [address]- Attending Physician: Pascale Dejesus MD Referring Physician: Vasu Joe DO [...] Refills, Soft Stop, 02/13/23 15:55:00 EDT, Tablet, [facility]/pharmacy #[id number], Partial fill upon patient request [...] 0 Refills, Maintenance, 11/23/22 13:00:00 EDT, Tablet, [facility], Partial fill upon patient request if the prescription is for a scheduleII opioid drug., 165 cm, 11/23/22 6:21:00 EDT, Hei... Start Date: [...] 11/23/22 13:00:00 EDT, Route to Pharmacy Electronically, [facility], Partial fill upon patient request if... [...] 11/23/22 13:00:00 EDT, Route to Pharmacy Electronically, [facility], Partial fill uponpatient request if the prescription is for a schedu... Start Date: 11/23/22 Stop Date: 12/07/22 Status: Ordered docusate sodium 100 mg oral capsule 100 mg, 1, capsule, By Mouth, 2 times a day, # 60 capsule, Refills 0, Tot. Refills 0, Maintenance, 10/08/20 9:40:00 EDT, [id number], Partial fill upon patient request [...] Maintenance, 11/23/2312:01:00 EDT, Route to Pharmacy Electronically, [facility], Partial fill upon patientrequest if the prescription is for a schedule II op... Start Date: 11/23/22 Stop Date: 12/07/22 Status: Ordered gabapentin 300 mg oral capsule 600 mg, 2, capsule, By Mouth, 3 times a day, # 180 capsule, Refills 0, Tot. Refills 0, Maintenance,11/23/22 13:00:00 EDT, Route to Pharmacy Electronically, [facility], Partial fill upon patient request [...] 0 Refills, Maintenance, 11/23/22 13:01:00 EDT, Capsule, [facility], Partial fill upon patient request [...] Refills, Maintenance, 11/23/22 14:08:00 EDT, ER Capsule, [facility], Partial fill upon patient request [...] Team Personnel Name: Carla Cooley RN Position: [facility] RN Member Role: Primary Care Nurse Name: Robbie Pichardo RN Position: [facility] RN Member Role: Primary Care Nurse Name: Juwan Gerber RN Position: [facility] RN Member Role: Primary Care Nurse Name: Seven Raines MD Position: [facility] CORPORATE RESPONSIBILITY OFFICER MD Member Role: Lifetime CORPORATE RESPONSIBILITY OFFICER Physician Address: Address: [address] [place] [address]- Name: Jaja Champagne RN Position: [facility] RN Member Role: Primary Care Nurse Name: Danielle Hernandez LPN Position: [facility] RN Member Role: Primary Care Nurse Name: Nadia Diego RN Position: [facility] RN Member Role: Primary Care Nurse Name: Glenys Cardenas RN Position: [facility] RN Member Role: Primary Care Nurse Name: Izzy Escalante RN Position: [facility] RN Member Role: Primary Care Nurse Name: Vasu Joe DO Position: [facility] Physician - Primary Care Member Role: PCP Address: Address: [address] [place], [place] [id number] [place] [address]- [place] Name: Mai Hess RN Position: [facility] RN Member Role: Primary Care Nurse Name: Anna Reyes RN Position: [facility] RN Member Role: Primary Care Nurse Name: Mali Mosley RN Position: [facility] RN Member Role: Primary Care Nurse Care Team Related Persons Name: ASAEL BAZAN Address: home [address] [place] [address] Name: KIRILL BAZAN Address: [address] [place] [address] Name: SHAY BAZANOVANNI Address: Address: home [address] [place] [address]
--- OUTSIDE RECORDS SUMMARY | 2023-05-12 19:59 | XMS_ITS | Continuity of Care Document ---
Author Name Unknown Organization [facility] Address [address] [place] [address] mario alberto, [address] [place] [address]- Care Team Providers Care Director Industrial Name Role Phone Vasu Joe DO Primary Care Physician Encounter [facility] [place] Date(s): 12/20/22 - 01/19/23 [facility] [address] [place] [address] Drive, [address] [place] [address]- Allergies, Adverse Reactions, Alerts Substance Reaction Severity [...] 0 Refills, Maintenance, 11/23/22 13:00:00 EDT, Tablet, [facility] 3, Partial fill upon patient [...] to Pharmacy Electronically, [facility] 3, Partial fill upon patient request [...] 11/23/22 13:00:00 EDT, Route to Pharmacy Electronically, [facility], Partial fill uponpatient request if the prescription is for a schedu... Start Date: 11/23/22 Stop Date: 12/07/22 Status: Ordered docusate sodium 100 mg oral capsule 100 mg, 1, capsule, By Mouth, 2 times a day, # 60 capsule, Refills 0, Tot. Refills 0, Maintenance, 10/08/20 9:40:00 EDT, [id number], Partial fill upon patient request if [...] Maintenance, 11/23/2312:01:00 EDT, Route to Pharmacy Electronically, [facility], Partial fill upon patientrequest if the prescription is for a schedule II op... Start Date: 11/23/22 Stop Date: 12/07/22 Status: Ordered gabapentin 300 mg oral capsule 600 mg, 2, capsule, By Mouth, 3 times a day, # 180 capsule, Refills 0, Tot. Refills 0, Maintenance,11/23/22 13:00:00 EDT, Route to Pharmacy Electronically, [facility], Partial fill upon [...] 0 Refills, Maintenance, 11/23/22 13:01:00 EDT, Capsule, [facility], Partial fill upon [...] Refills, Maintenance, 11/23/22 14:08:00 EDT, ER Capsule, [facility], Partial fill upon [...] Team Personnel Name: Carla Cooley RN Position: [facility] RN Member Role: Primary Care Nurse Name: Rbobie Pichardo RN Position: [facility] RN Member Role: Primary Care Nurse Name: Juwan Gerber RN Position: [facility] RN Member Role: Primary Care Nurse Name: Seven Raines MD Position: [facility] ALARM SIGNALER Member Role: Lifetime ALARM SIGNALER Physician Address: Address: [address] [place] [address] Name: Jaja Champagne RN Position: [facility] RN Member Role: Primary Care Nurse Name: Danielle Hernandez LPN Position: [facility] RN Member Role: Primary Care Nurse Name: Nadia Diego RN Position: [facility] RN Member Role: Primary Care Nurse Name: Glenys Cardenas RN Position: [facility] RN Member Role: Primary Care Nurse Name: Izzy Escalante RN Position: [facility] RN Member Role: Primary Care Nurse Name: Vasu Joe DO Position: [facility] Physician - Primary Care Member Role: PCP Address: Address: [address] [place], [place] [id number] [address] Name: Mai Hess RN Position: [facility] RN Member Role: Primary Care Nurse Name: Anna Reyes RN Position: [facility] RN Member Role: Primary Care Nurse Name: Mali Mosley RN Position: [facility] RN Member Role: Primary Care Nurse Care Team Related Persons Name: ASAEL BAZAN Address: home [address] [place] [address] Name: KIRILL BAZAN Address: home [address] [place] [address] Name: ZHOU BAZAN Address: [id number] Address: home [address] [place] [address] [place]
--- OUTSIDE RECORDS SUMMARY | 2023-05-12 19:59 | XMS_ITS | Continuity of Care Document ---
Author Name Unknown Organization [facility] Address [address] [place] [address], [address] [place] [address]- Care Team Providers Care Water Service Supervisor Name Role Phone Vasu Joe DO Primary Care Physician [place] [facility] [place](s): 12/14/22 - 01/13/23 [facility] [address] [place] [address] Drive, [address] [place] [address]- Allergies, Adverse Reactions, Alerts Substance Reaction Severity [...] 0 Refills, Maintenance, 11/23/22 13:00:00 EDT, Tablet, [facility] 3, Partial fill upon patient request if [...] 13:00:00 EDT, Route to Pharmacy Electronically, [facility] 3, Partial fill upon patient request if... [...] 11/23/22 13:00:00 EDT, Route to Pharmacy Electronically, [facility], Partial fill uponpatient request if the prescription is for a schedu... Start Date: 11/23/22 Stop Date: 12/07/22 Status: Ordered docusate sodium 100 mg oral capsule 100 mg, 1, capsule, By Mouth, 2 times a day, # 60 capsule, Refills 0, Tot. Refills 0, Maintenance, 10/08/20 9:40:00 EDT, [id number] fill upon patient request [...] Maintenance, 11/23/2312:01:00 EDT, Route to Pharmacy Electronically, [facility], Partial fill upon patientrequest if the prescription is for a schedule II op... Start Date: 11/23/22 Stop Date: 12/07/22 Status: Ordered gabapentin 300 mg oral capsule 600 mg, 2, capsule, By Mouth, 3 times a day, # 180 capsule, Refills 0, Tot. Refills 0, Maintenance,11/23/22 13:00:00 EDT, Route to Pharmacy Electronically, [facility], Partial fill upon patient request if [...] 0 Refills, Maintenance, 11/23/22 13:01:00 EDT, Capsule, [facility], Partial fill upon patient [...] Refills, Maintenance, 11/23/22 14:08:00 EDT, ER Capsule, [facility], Partial fill upon patient [...] Team Personnel Name: Carla Cooley RN Position: [facility] RN Member Role: Primary Care Nurse Name: Robbie Pichardo RN Position: [facility] RN Member Role: Primary Care Nurse Name: Juwan Gerber RN Position: [facility] RN Member Role: Primary Care Nurse Name: Seven Raines MD Position: [facility] JET DYEING MACHINE TENDER MD Member Role: Lifetime JET DYEING MACHINE TENDER Physician Address: Address: [address] [place] [address] Name: Jaja Champagne RN Position: [facility] RN Member Role: Primary Care Nurse Name: Danielle Hernandez LPN Position: [facility] RN Member Role: Primary Care Nurse Name: Nadia Diego RN Position: [facility] RN Member Role: Primary Care Nurse Name: Glenys Cardenas RN Position: [facility] RN Member Role: Primary Care Nurse Name: Izzy Escalante RN Position: [facility] RN Member Role: Primary Care Nurse Name: Vasu Joe DO Position: [facility] Physician - Primary Care Member Role: PCP Address: Address: [address] [place], [place] [id number] [address] Name: Mai Hess RN Position: [facility] RN Member Role: Primary Care Nurse Name: Anna Reyes RN Position: [facility] RN Member Role: Primary Care Nurse Name: Mali Mosley RN Position: [facility] RN Member Role: Primary Care Nurse Care Team Related Persons Name: ASAEL BAZAN Address: home [address] [place] [address] Name: KIRILL BAZAN Address: home [address] [place] [address] Name: ZHOU BAZAN Address: [address] Address: home [address] [address] [place]
--- OUTSIDE RECORDS SUMMARY | 2023-05-12 19:59 | XMS_ITS | Continuity of Care Document ---
Author Name Unknown Organization [facility] Address [address] [place] [address], [address] [place] [address]- Care Team Providers Care Resistance Welding Machine Operator Name Role Phone Alyssaben Vasu BACA Primary Care Physician Encounter [facility] Date(s): 12/24/22 - 01/23/23 [facility] [address] [address], [address] [place], [place] [address] Allergies, Adverse Reactions, Alerts Substance Reaction Severity [...] 0 Refills, Maintenance, 11/23/22 13:00:00 EDT, Tablet, [facility] 3, Partial fill upon patient [...] 11/23/22 13:00:00 EDT, Route to Pharmacy Electronically, [facility] 3, Partial fill upon patient request [...] 11/23/22 13:00:00 EDT, [facility], Partial fill uponpatient request if the prescription is for a schedu... Start Date: 11/23/22 Stop Date: 12/07/22 Status: Ordered docusate sodium 100 mg oral capsule 100 mg, 1, capsule, By Mouth, 2 times a day, # 60 capsule, Refills 0, Tot. Refills 0, Maintenance, 10/08/20 9:40:00 EDT, [id number] fill upon patient request if [...] Maintenance, 11/23/2312:01:00 EDT, Route to Pharmacy Electronically, [facility] 3, Partial fill upon patientrequest if the prescription is for a schedule II op... Start Date: 11/23/22 Stop Date: 12/07/22 Status: Ordered gabapentin 300 mg oral capsule 600 mg, 2, capsule, By Mouth, 3 times a day, # 180 capsule, Refills 0, Tot. Refills 0, Maintenance,11/23/22 13:00:00 EDT, Route to Pharmacy Electronically, [facility] 3, Partial fill upon patient request [...] 0 Refills, Maintenance, 11/23/22 13:01:00 EDT, Capsule, [facility], Partial fill upon patient [...] Refills, Maintenance, 11/23/22 14:08:00 EDT, ER Capsule, [facility], Partial fill upon patient [...] Care Nurse Name: Seven Raines MD Position: S ELECTRONICS WARFARE TECHNICIAN MD Member Role: Lifetime ELECTRONICS WARFARE TECHNICIAN Physician Address: Address: [address] [place] [address] Name: Jaja Champagne RN Position: [facility] RN Member Role: Primary Care Nurse Name: Danielle Hernandez LPN Position: [facility] RN Member Role: Primary Care Nurse Name: Nadia Diego RN Position: [facility] RN Member Role: Primary Care Nurse Name: Glenys Cardenas RN Position: S RN Member Role: Primary Care Nurse Name: Izzy Escalante RN Position: [facility] RN Member Role: Primary Care Nurse Name: Vasu Joe DO Position: [facility] Physician - Primary Care Member Role: PCP Address: Address: [address] [place], [place] [id number] [address] Name: Mai Hess RN Position: [facility] RN Member Role: Primary Care Nurse Name: Anna Reyes RN Position: [facility] RN Member Role: Primary Care Nurse Name: Mali Mosley RN Position: [facility] RN Member Role: Primary Care Nurse Care Team Related Persons Name: ASAEL BAZAN Address: home [address] [place] [address] Name: KIRILL BAZAN Address: home [address] [place] [address] Name: ZHOU BAZAN Address: [address] Address: home [address] [place] [address] [place]
--- OUTSIDE RECORDS SUMMARY | 2023-05-12 19:59 | XMS_ITS | Continuity of Care Document ---
Author Name Unknown Organization [facility] Address [address] [place] [address] mario alberto, [address] [place] [address]- Care Team Providers Care Machine Deicer Element Winder Name Role Phone Vasu Joe DO Primary Care Physician [place] [facility] [place] 03/10/23 [facility] [address] [place] [address] Drive, [address] [place], [place] [address] Allergies, Adverse Reactions, Alerts Substance [...] Refills, Soft Stop, 02/13/23 15:55:00 EDT, Tablet, [facility]/pharmacy #[id number], Partial fill upon patient request [...] 0 Refills, Maintenance, 11/23/22 13:00:00 EDT, Tablet, [facility], Partial fill upon patient request if [...] 11/23/22 13:00:00 EDT, Route to Pharmacy Electronically, [facility], Partial fill upon patient request if... [...] 11/23/22 13:00:00 EDT, Route to Pharmacy Electronically, [facility], Partial fill uponpatient request if the prescription is for a schedu... Start Date: 11/23/22 Stop Date: 12/07/22 Status: Ordered docusate sodium 100 mg oral capsule 100 mg, 1, capsule, By Mouth, 2 times a day, # 60 capsule, Refills 0, Tot. Refills 0, Maintenance, 10/08/20 9:40:00 EDT, [id number] Partial fill upon patient [...] Maintenance, 11/23/2312:01:00 EDT, Route to Pharmacy Electronically, [facility], Partial fill upon patientrequest if the prescription is for a schedule II op... Start Date: 11/23/22 Stop Date: 12/07/22 Status: Ordered gabapentin 300 mg oral capsule 600 mg, 2, capsule, By Mouth, 3 times a day, # 180 capsule, Refills 0, Tot. Refills 0, Maintenance,11/23/22 13:00:00 EDT, Route to Pharmacy Electronically, [facility], Partial fill upon patient [...] 0 Refills, Maintenance, 11/23/22 13:01:00 EDT, Capsule, [facility], Partial fill upon patient [...] Refills, Maintenance, 11/23/22 14:08:00 EDT, ER Capsule, [facility] 3, Partial fill upon [...] Team Personnel Name: Carla Cooley RN Position: [facility] RN Member Role: Primary Care Nurse Name: Robbie Pichardo RN Position: S RN Member Role: Primary Care Nurse Name: Juwan Gerber RN Position: [facility] RN Member Role: Primary Care Nurse Name: Seven Raines MD Position: [facility] LEAD DEVELOPER MD Member Role: Lifetime LEAD DEVELOPER Physician Address: Address: [address] [place] [address]- Name: Jaja Champagne RN Position: [facility] RN Member Role: Primary Care Nurse Name: Danielle Hernandez LPN Position: [facility] RN Member Role: Primary Care Nurse Name: Nadia Diego RN Position: [facility] RN Member Role: Primary Care Nurse Name: Glenys Cardenas RN Position: [facility] RN Member Role: Primary Care Nurse Name: Izzy Escalante RN Position: [facility] RN Member Role: Primary Care Nurse Name: Vasu Joe DO Position: [facility] Physician - Primary Care Member Role: PCP Address: Address: [address] [place], [place] [id number] [place] [address]- Name: Mai Hess RN Position: [facility] RN Member Role: Primary Care Nurse Name: Anna Reyes RN Position: [facility] RN Member Role: Primary Care Nurse Name: Mali Mosley RN Position: [facility] RN Member Role: Primary Care Nurse Care Team Related Persons Name: ASAEL BAZAN Address: home [address] [place] [address] Name: KIRILL BAZAN Address: [address] [place] [address] Name: ZHOU BAZAN Address: [address] Address: home [address] [place] [address] [place]
--- OUTSIDE RECORDS SUMMARY | 2023-05-12 19:59 | XMS_ITS | Continuity of Care Document ---
Author Name Unknown Organization [facility] Address [address] [place] [address] mario alberto, [address] [place] [address]- Care Team Providers Care Farmer Cash Grain Name Role Phone Vasu Joe DO Primary Care Physician [place] [facility] [place] 02/13/23 - 03/15/23 [facility] [address] [place] [address] Drive, [address] [place], [place] [address] Attending Physician: Admtr, [id number] Admitting Physician: [id number] Referring Physician: Admtr, [id number] Allergies, Adverse Reactions, [...] 0 Refills, Maintenance, 11/23/22 13:00:00 EDT, Tablet, [facility] 3, Partial fill [...] 11/23/22 13:00:00 EDT, Route to Pharmacy Electronically, [facility], Partial fill upon patient request [...] 11/23/22 13:00:00 EDT, Route to Pharmacy Electronically, [facility] 3, Partial fill uponpatient request if the prescription is for a schedu... Start Date: 11/23/22 Stop Date: 12/07/22 Status: Ordered docusate sodium 100 mg oral capsule 100 mg, 1, capsule, By Mouth, 2 times a day, # 60 capsule, Refills 0, Tot. Refills 0, Maintenance, 10/08/20 9:40:00 EDT, [id number] fill upon patient request [...] Maintenance, 11/23/2312:01:00 EDT, Route to Pharmacy Electronically, [facility] 3, Partial fill upon patientrequest if the prescription is for a schedule II op... Start Date: 11/23/22 Stop Date: 12/07/22 Status: Ordered gabapentin 300 mg oral capsule 600 mg, 2, capsule, By Mouth, 3 times a day, # 180 capsule, Refills 0, Tot. Refills 0, Maintenance,11/23/22 13:00:00 EDT, Route to Pharmacy Electronically, [facility], Partial fill upon patient [...] 0 Refills, Maintenance, 11/23/22 13:01:00 EDT, Capsule, [facility] 3, Partial fill [...] Refills, Maintenance, 11/23/22 14:08:00 EDT, ER Capsule, [facility], Partial fill upon patient [...] Team Personnel Name: Carla Cooley RN Position: [facility] RN Member Role: Primary Care Nurse Name: Robbie Pichardo RN Position: [facility] RN Member Role: Primary Care Nurse Name: Juwan Gerber RN Position: [facility] RN Member Role: Primary Care Nurse Name: Seven Raines MD Position: [facility] HOSPITALITY INTERNSHIP MD Member Role: [employer]etime HOSPITALITY INTERNSHIP Physician Address: Address: [address] [place] [address]- Name: Jaja Champagne RN Position: [facility] RN Member Role: Primary Care Nurse Name: Danielle Hernandez LPN Position: [facility] RN Member Role: Primary Care Nurse Name: Nadia Diego RN Position: [facility] RN Member Role: Primary Care Nurse Name: Glenys Cardenas RN Position: [facility] RN Member Role: Primary Care Nurse Name: Izzy Escalante RN Position: [facility] RN Member Role: Primary Care Nurse Name: Vasu Joe DO Position: [facility] Physician - Primary Care Member Role: PCP Address: Address: [address] [place], [place] [id number] [place] [address]- [place] Name: Mai Hess RN Position: [facility] RN Member Role: Primary Care Nurse Name: Anna Reyes RN Position: [facility] RN Member Role: Primary Care Nurse Name: Mali Mosley RN Position: [facility] RN Member Role: Primary Care Nurse Care Team Related Persons Name: ASAEL BAZAN Address: home [address] [place] [address] Name: KIRILL BAZAN Address: home [address] [place] [address] Name: ZHOU BAZAN Address: Address: [address] [address]
--- OUTSIDE RECORDS SUMMARY | 2023-05-12 19:59 | XMS_ITS | Continuity of Care Document ---
Author Name Unknown Organization [facility] Address [address] [place] [address] mario alberto, [address] [place] [address]- Care Team Providers Care Scrap Baler Name Role Phone Vasu Joe DO Primary Care Physician En[place] [facility] [place] Date(s): 03/22/23 - 04/21/23 [facility] [address] [place] [address], [address] [place], [place] [address] Allergies, Adverse Reactions, Alerts [...] Refills, Soft Stop, 02/13/23 15:55:00 EDT, Tablet, [facility]/pharmacy #[id number], Partial fill upon patient request [...] 0 Refills, Maintenance, 11/23/22 13:00:00 EDT, Tablet, [facility], Partial fill upon patient request if [...] 11/23/22 13:00:00 EDT, Route to Pharmacy Electronically, [facility], Partial fill upon patient [...] 11/23/22 13:00:00 EDT, Route to Pharmacy Electronically, [facility], Partial fill uponpatient request if [...] Maintenance, 11/23/2312:01:00 EDT, Route to Pharmacy Electronically, [facility], Partial fill upon patientrequest if the prescription is for a schedule II op... Start Date: 11/23/22 Stop Date: 12/07/22 Status: Ordered gabapentin 300 mg oral capsule 600 mg, 2, capsule, By Mouth, 3 times a day, # 180 capsule, Refills 0, Tot. Refills 0, Maintenance,11/23/22 13:00:00 EDT, Route to Pharmacy Electronically, [facility], Partial fill upon patient [...] 0 Refills, Maintenance, 11/23/22 13:01:00 EDT, Capsule, [facility], Partial fill upon patient [...] Refills, Maintenance, 11/23/22 14:08:00 EDT, ER Capsule, [facility], Partial fill upon patient [...] Care Nurse Name: Robbie Pichardo RN Position: [facility] RN Member Role: Primary Care Nurse Name: Juwan Gerber RN Position: [facility] RN Member Role: Primary Care Nurse Name: Seven Raines MD Position: [facility] SOCIAL SERVICE COORDINATOR MD Member Role: Lifetime SOCIAL SERVICE COORDINATOR Physician Address: Address: [address] [place] [address]- Name: Jaja Champagne RN Position: [facility] RN Member Role: Primary Care Nurse Name: Danielle Hernandez LPN Position: [facility] RN Member Role: Primary Care Nurse Name: Nadia Diego RN Position: [facility] RN Member Role: Primary Care Nurse Name: Glenys Cardenas RN Position: [facility] RN Member Role: Primary Care Nurse Name: Izzy Escalante RN Position: [facility] RN Member Role: Primary Care Nurse Name: Vasu Joe DO Position: [facility] Physician - Primary Care Member Role: PCP Address: Address: [address] [place], [place] [address] [place] [address]- Name: Mai Hess RN Position: [facility] RN Member Role: Primary Care Nurse Name: Anna Reyes RN Position: [facility] RN Member Role: Primary Care Nurse Name: Mali Mosley RN Position: [facility] RN Member Role: Primary Care Nurse Care Team Related Persons Name: ASAEL BAZAN Address: home [address] [place] [address] Name: KIRILL BAZAN Address: home [address] [place] [address] Name: ZHOU BAZAN Address: [address] Address: [address] [place] [address]
--- OUTSIDE RECORDS SUMMARY | 2023-05-12 19:59 | XMS_ITS | Continuity of Care Document ---
Author Name Unknown Organization [facility] Address [address] [place] [address] mario alberto, [address] [place] [address]- Care Team Providers Care Analog Device Designer Name Role Phone Vasu Joe DO Primary Care Physician [place] [facility] [place] 01/04/23 [facility] [address] [place] [address] Drive, [address] [place], [place] [address] Attending Physician: AdmDimitri [email or web address] Admitting Physician: AdmtrJose Luis Referring Physician: Admtr, [...] 0 Refills, Maintenance, 11/23/22 13:00:00 EDT, Tablet, [facility], Partial fill upon patient request if [...] 11/23/22 13:00:00 EDT, Route to Pharmacy Electronically, [facility], Partial fill upon patient request if... [...] 11/23/22 13:00:00 EDT, Route to Pharmacy Electronically, [facility], Partial fill uponpatient request [...] Maintenance, 11/23/2312:01:00 EDT, Route to Pharmacy Electronically, [facility], Partial fill upon patientrequest if the prescription is for a schedule II op... Start Date: 11/23/22 Stop Date: 12/07/22 Status: Ordered gabapentin 300 mg oral capsule 600 mg, 2, capsule, By Mouth, 3 times a day, # 180 capsule, Refills 0, Tot. Refills 0, Maintenance,11/23/22 13:00:00 EDT, Route to Pharmacy Electronically, [facility], Partial fill upon patient [...] 0 Refills, Maintenance, 11/23/22 13:01:00 EDT, Capsule, [facility], Partial fill upon patient [...] Refills, Maintenance, 11/23/22 14:08:00 EDT, ER Capsule, [facility], Partial fill upon patient [...] Team Personnel Name: Carla Cooley RN Position: [facility] RN Member Role: Primary Care Nurse Name: Robbie Pichardo RN Position: [facility] RN Member Role: Primary Care Nurse Name: Juwan Gerber RN Position: S RN Member Role: Primary Care Nurse Name: Seven Raines MD Position: [facility] CAP AND STUD MACHINE OPERATOR MD Member Role: Lifetime CAP AND STUD MACHINE OPERATOR Physician Address: Address: [address] [address]- Name: Jaja Champagne RN Position: S RN Member Role: Primary Care Nurse Name: Danielle Hernandez LPN Position: S RN Member Role: Primary Care Nurse Name: Nadia Diego RN Position: S RN Member Role: Primary Care Nurse Name: Glenys Cardenas RN Position: S RN Member Role: Primary Care Nurse Name: Izzy Escalante RN Position: [facility] RN Member Role: Primary Care Nurse Name: Vasu Joe DO Position: [facility] Physician - Primary Care Member Role: PCP Address: Address: [address] [facility] [address] [place] [address]- Name: Mai Hess RN Position: S RN Member Role: Primary Care Nurse Name: Anna Reyes RN Position: [facility] RN Member Role: Primary Care Nurse Name: Mali Mosley RN Position: [facility] RN Member Role: Primary Care Nurse Care Team Related Persons Name: ASAEL BAZAN Address: home [address] [place] [address] Name: KIRILL BAZAN Address: home [address] [place] [address] Name: ZHOU BAZAN Address: Address: home [address] [place] [address]
--- OUTSIDE RECORDS SUMMARY | 2023-05-12 19:59 | XMS_ITS | Continuity of Care Document ---
Author Name Unknown Organization [facility] Address [address] [place] [address] mario alberto, [address] [place] [address]- Care Team Providers Care Cryogenics Repairer Name Role Phone Vasu Joe DO Primary Care Physician En[place] [facility] [place] Date(s): 01/30/23 - 02/06/23 [facility] [address] [place] [address] Drive, [address] [place], [place] [address] Attending Physician: Not on Staff, Attending MD Allergies, Adverse Reactions, Alerts Substance Reaction [...] 0 Refills, Maintenance, 11/23/22 13:00:00 EDT, Tablet, [facility], Partial fill upon patient request [...] 11/23/22 13:00:00 EDT, Route to Pharmacy Electronically, [facility], Partial fill upon patient request if... [...] 11/23/22 13:00:00 EDT, Route to Pharmacy Electronically, [facility], Partial fill uponpatient request if the prescription is for a schedu... Start Date: 11/23/22 Stop Date: 12/07/22 Status: Ordered docusate sodium 100 mg oral capsule 100 mg, 1, capsule, By Mouth, 2 times a day, # 60 capsule, Refills 0, Tot. Refills 0, Maintenance, 10/08/20 9:40:00 EDT, [id number] fill upon patient request if [...] Maintenance, 11/23/2312:01:00 EDT, Route to Pharmacy Electronically, [facility] 3, Partial fill upon patientrequest if the prescription is for a schedule II op... Start Date: 11/23/22 Stop Date: 12/07/22 Status: Ordered gabapentin 300 mg oral capsule 600 mg, 2, capsule, By Mouth, 3 times a day, # 180 capsule, Refills 0, Tot. Refills 0, Maintenance,11/23/22 13:00:00 EDT, Route to Pharmacy Electronically, [facility], Partial fill upon patient request [...] 0 Refills, Maintenance, 11/23/22 13:01:00 EDT, Capsule, [facility], Partial fill upon patient request [...] Refills, Maintenance, 11/23/22 14:08:00 EDT, ER Capsule, [facility], Partial fill upon patient request [...] recent to oldest [Reference Range]: 1 Height 165 cm (01/30/23 3:28 PM) Weight 60.2 kg (01/30/23 3:28 PM) Body Mass Index [18.5-24.99 kg/m2] 22.11 kg/m2 (01/30/23 3:28 PM) Social History Social History Type Response [...] Care Nurse Name: Robbie Pichardo RN Position: [facility] RN Member Role: Primary Care Nurse Name: Juwan Gerber RN Position: [facility] RN Member Role: Primary Care Nurse Name: Seven Raines MD Position: [facility] DIRECTOR OF BUSINESS APPLICATIONS MD Member Role: Lifetime DIRECTOR OF BUSINESS APPLICATIONS Physician Address: Address: [address] [place] [address]- Name: Jaja Champagne RN Position: [facility] RN Member Role: Primary Care Nurse Name: Danielle Hernandez LPN Position: [facility] RN Member Role: Primary Care Nurse Name: Nadia Diego RN Position: [facility] RN Member Role: Primary Care Nurse Name: Glenys Cardenas RN Position: [facility] RN Member Role: Primary Care Nurse Name: Izzy Escalante RN Position: [facility] RN Member Role: Primary Care Nurse Name: Vasu Joe DO Position: [facility] Physician - Primary Care Member Role: PCP Address: Address: [address] [place], [place] [id number] [place] [address]- Name: Mai Hess RN Position: [facility] RN Member Role: Primary Care Nurse Name: Anna Reyes RN Position: [facility] RN Member Role: Primary Care Nurse Name: Mali Mosley RN Position: [facility] RN Member Role: Primary Care Nurse Care Team Related Persons Name: ASAEL BAZAN Address: [address] [place] [address] Name: KIRILL BAZAN Address: home [address] [place] [address] Name: ZHOU BAZAN Address: Address: home [address] [place] [address] [place]
--- OUTSIDE RECORDS SUMMARY | 2023-05-12 19:59 | XMS_ITS | Continuity of Care Document ---
Author Name Unknown Organization [facility] Address [address] [place] [address], [address] [place] [address]- Care Team Providers Care Electrician Assistant Name Role Phone Vasu Joe DO Primary Care Physician Encounter [facility] [place] Date(s): 01/16/23 - 02/20/23 [facility] [address] [place] [address] Drive, [address] [place] [address]- Attending Physician: Bridget Dykes DO Allergies, Adverse [...] Refills, Soft Stop, 02/13/23 15:55:00 EDT, Tablet, [facility]/pharmacy #[id number], Partial fill upon patient [...] 0 Refills, Maintenance, 11/23/22 13:00:00 EDT, Tablet, [facility], Partial fill upon patient [...] 11/23/22 13:00:00 EDT, Route to Pharmacy Electronically, [facility], Partial fill upon patient request [...] 11/23/22 13:00:00 EDT, Route to Pharmacy Electronically, [facility], Partial fill uponpatient request if the prescription is for a schedu... Start Date: 11/23/22 Stop Date: 12/07/22 Status: Ordered docusate sodium 100 mg oral capsule 100 mg, 1, capsule, By Mouth, 2 times a day, # 60 capsule, Refills 0, Tot. Refills 0, Maintenance, 10/08/20 9:40:00 EDT, [id number] Partial fill upon patient request if [...] Maintenance, 11/23/2312:01:00 EDT, Route to Pharmacy Electronically, [facility], Partial fill upon patientrequest if the prescription is for a schedule II op... Start Date: 11/23/22 Stop Date: 12/07/22 Status: Ordered gabapentin 300 mg oral capsule 600 mg, 2, capsule, By Mouth, 3 times a day, # 180 capsule, Refills 0, Tot. Refills 0, Maintenance,11/23/22 13:00:00 EDT, Route to Pharmacy Electronically, [facility], Partial fill upon patient [...] 0 Refills, Maintenance, 11/23/22 13:01:00 EDT, Capsule, [facility], Partial fill upon patient [...] Refills, Maintenance, 11/23/22 14:08:00 EDT, ER Capsule, [facility], Partial fill upon patient [...] Device Type Site Open Reduction Internal Fixation Prince Garland MDnett 11/07/22 Unknown Arm Lower Device Identifier Serial [...] Team Personnel Name: Carla Cooley RN Position: [facility] RN Member Role: Primary Care Nurse Name: Robbie Pichardo RN Position: [facility] RN Member Role: Primary Care Nurse Name: Juwan Gerber RN Position: [facility] RN Member Role: Primary Care Nurse Name: Seven Raines MD Position: [facility] SOFTWARE CONFIGURATION MANAGER MD Member Role: Lifetime SOFTWARE CONFIGURATION MANAGER Physician Address: Address: [address] [place] [address]- Name: Jaja Champagne RN Position: [facility] RN Member Role: Primary Care Nurse Name: Danielle Hernandez LPN Position: [facility] RN Member Role: Primary Care Nurse Name: Nadia Diego RN Position: [facility] RN Member Role: Primary Care Nurse Name: Glenys Cardenas RN Position: [facility] RN Member Role: Primary Care Nurse Name: Izzy Escalante RN Position: [facility] RN Member Role: Primary Care Nurse Name: Vasu Joe DO Position: [facility] Physician - Primary Care Member Role: PCP Address: Address: [address] [place], [place] [id number] [place] [address]- Name: Mai Hess RN Position: [facility] RN Member Role: Primary Care Nurse Name: Anna Reyes RN Position: [facility] RN Member Role: Primary Care Nurse Name: Mali Mosley RN Position: [facility] RN Member Role: Primary Care Nurse Care Team Related Persons Name: ASAEL BAZAN Address: home [address] [place] [address] Name: KIRILL BAZAN Address: [address] [place] [address] Name: ZHOU BAZAN Address: Address: home [address] [place] [address] [place]
--- OUTSIDE RECORDS SUMMARY | 2023-05-12 19:59 | XMS_ITS | Continuity of Care Document ---
Author Name Unknown Organization [facility] Address [address] [place] [address] mario alberto, [address] [place] [address]- Care Team Providers Care Coal Conveyor Operator Name Role Phone Vasu Joe DO Primary Care Physician [place] [facility] [place]23 [place] 04/24/23 [facility] [address] [place] [address] Drive, [address] [place] [address]- Allergies, Adverse Reactions, Alerts Substance Reaction Severity [...] Refills, Soft Stop, 02/13/23 15:55:00 EDT, Tablet, [facility]/pharmacy #[id number], Partial fill upon patient [...] 0 Refills, Maintenance, 11/23/22 13:00:00 EDT, Tablet, [facility], Partial fill upon patient [...] 11/23/22 13:00:00 EDT, Route to Pharmacy Electronically, [facility], Partial fill upon patient request [...] 11/23/22 13:00:00 EDT, Route to Pharmacy Electronically, [facility], Partial fill uponpatient request if the prescription is for a schedu... Start Date: 11/23/22 Stop Date: 12/07/22 Status: Ordered docusate sodium 100 mg oral capsule 100 mg, 1, capsule, By Mouth, 2 times a day, # 60 capsule, Refills 0, Tot. Refills 0, Maintenance, 10/08/20 9:40:00 EDT, [id number] Partial fill upon patient request [...] Maintenance, 11/23/2312:01:00 EDT, Route to Pharmacy Electronically, [facility], Partial fill upon patientrequest if the prescription is for a schedule II op... Start Date: 11/23/22 Stop Date: 12/07/22 Status: Ordered gabapentin 300 mg oral capsule 600 mg, 2, capsule, By Mouth, 3 times a day, # 180 capsule, Refills 0, Tot. Refills 0, Maintenance,11/23/22 13:00:00 EDT, Route to Pharmacy Electronically, [facility], Partial fill upon patient [...] 0 Refills, Maintenance, 11/23/22 13:01:00 EDT, Capsule, [facility], Partial fill upon patient [...] Refills, Maintenance, 11/23/22 14:08:00 EDT, ER Capsule, [facility], Partial fill upon patient [...] Care team information Care Team Personnel Name: Crala Cooley RN Position: [facility] RN Member Role: Primary Care Nurse Name: Robbie Pichardo RN Position: S RN Member Role: Primary Care Nurse Name: Juwan Gerber RN Position: [facility] RN Member Role: Primary Care Nurse Name: Seven Raines MD Position: [facility] STEAMBOAT CAPTAIN MD Member Role: Lifetime STEAMBOAT CAPTAIN Physician Address: Address: [address] [place] [address]- Name: Jaja Champagne RN Position: [facility] RN Member Role: Primary Care Nurse Name: Danielle Hernandez LPN Position: [facility] RN Member Role: Primary Care Nurse Name: Nadia Diego RN Position: [facility] RN Member Role: Primary Care Nurse Name: Glenys Cardenas RN Position: [facility] RN Member Role: Primary Care Nurse Name: Izzy Escalante RN Position: [facility] RN Member Role: Primary Care Nurse Name: Vasu Joe DO Position: [facility] Physician - Primary Care Member Role: PCP Address: Address: [address] [place], [place] [address] [place] [address]- Name: Mai Hess RN Position: [facility] RN Member Role: Primary Care Nurse Name: Anna Reyes RN Position: [facility] RN Member Role: Primary Care Nurse Name: Mali Mosley RN Position: [facility] RN Member Role: Primary Care Nurse Care Team Related Persons Name: ASAEL BAZAN Address: home [address] [place] [address] Name: KIRILL BAZAN Address: home [address] [place] [address] Name: ZHOU BAZAN Address: Address: home [address] [place] [id number] [place]
--- OUTSIDE RECORDS SUMMARY | 2023-05-12 19:59 | XMS_ITS | Continuity of Care Document ---
Author Name Unknown Organization [facility] Address [address] [place] [address]- Care Team Providers Care Tobacco Sweeper Name Role Phone Vasu Joe DO Primary Care Physician Encounter [facility] [place] [facility] [place] [id number] Date(s): 10/06/20 - 11/05/[address] [address] Attending Physician: Jose Luis Figueroa Admitting Physician: AdmtrJose Luis Referring Physician: Admtr, [...] Refills 0, Maintenance, 12/12/16 3:49:04 Start Date: 6/7/17 Status: Ordered Clonazepam See Instructions, 0.5 mg [...] 10/08/20 9:40:00 EDT, Route to Pharmacy Electronically, [facility]/pharmacy #[id number], Partial fill upon patient request if the prescription is for a schedule II o... Start Date: 10/08/20 Status: Ordered Leader Nicotine Polacrilex 2 mg [...]
--- OUTSIDE RECORDS SUMMARY | 2023-05-12 19:59 | XMS_ITS | Continuity of Care Document ---
Author Name Unknown Organization [facility] ter Address [address] [place] [address]- Care Team Providers Care Aerologist Name Role Phone Alyssagueritademi Vasu Primary Care Physician Encounter [facility] [place] Date(s): 12/07/22 - 12/07/[address] [address]- Discharge Disposition: A-D/C Walkout Attending Physician: Not on Staff, Attending MD [...] 0 Refills, Maintenance, 11/23/22 13:00:00 EDT, Tablet, [facility], Partial fill upon patient request [...] 11/23/22 13:00:00 EDT, Route to Pharmacy Electronically, [facility], Partial fill upon patient request [...] 11/23/22 13:00:00 EDT, Route to Pharmacy Electronically, [facility], Partial fill uponpatient request if the prescription is for a schedu... Start Date: 11/23/22 Stop Date: 12/07/22 Status: Ordered docusate sodium 100 mg oral capsule 100 mg, 1, capsule, By Mouth, 2 times a day, # 60 capsule, Refills 0, Tot. Refills 0, Maintenance, 10/08/20 9:40:00 EDT, [id number], Partial fill upon patient request [...] Maintenance, 11/23/2312:01:00 EDT, Route to Pharmacy Electronically, [facility], Partial fill upon patientrequest if the prescription is for a schedule II op... Start Date: 11/23/22 Stop Date: 12/07/22 Status: Ordered gabapentin 300 mg oral capsule 600 mg, 2, capsule, By Mouth, 3 times a day, # 180 capsule, Refills 0, Tot. Refills 0, Maintenance,11/23/22 13:00:00 EDT, Route to Pharmacy Electronically, [facility], Partial fill upon [...] 0 Refills, Maintenance, 11/23/22 13:01:00 EDT, Capsule, [facility], Partial fill upon [...] Refills, Maintenance, 11/23/22 14:08:00 EDT, ER Capsule, [facility], Partial fill upon [...] drug. Start Date: 08/09/21 Status: Ordered Shower Chair See Instructions, # [...] recent to oldest [Reference Range]: 1 2 Oxygen Saturation [94-100 %] 99 % (12/07/22 7:30 PM) 99 % (12/07/22 7:15 PM) Pulse Rate [55-90 bpm] 102 bpm *H* (12/07/22 7:30 PM) 100 bpm *H* (12/07/22 7:15 PM) Blood Pressure [90-138/55-84 mm Hg] 112/ 79mm Hg (12/07/22 7:30 PM) Temperature [96.8-100.4 DegF] 98.3 DegF (12/07/22 7:30 PM) Mode of Delivery (Oxygen) Room air (12/07/22 7:15 PM) Blood pressure sites Arm, right (12/07/22 7:30 PM) Temperature Route Oral (12/07/22 7:30 PM) Dry Weight 61.5 kg (12/07/22 7:30 PM) Dry Weight Obtained Via Standing scale (12/07/22 7:30 PM) Social History Social History Type Response [...] Device Type Site Open Reduction Internal Fixation Peewee/Ra Taz Briseno MD 11/07/22 Unknown Arm Lower [...] Team Personnel Name: Carla Cooley RN Position: [facility] RN Member Role: Primary Care Nurse Name: Robbie Pichardo RN Position: [facility] RN Member Role: Primary Care Nurse Name: Juwan Gerber RN Position: [facility] RN Member Role: Primary Care Nurse Name: Seven Raines MD Position: [facility] MERCHANDISING SPECIALIST MD Member Role: Lifetime MERCHANDISING SPECIALIST Physician Address: Address: [address] [place] [id number] Name: Jaja Champagne RN Position: [facility] RN Member Role: Primary Care Nurse Name: Danielle Hernandez LPN Position: [facility] RN Member Role: Primary Care Nurse Name: Nadia Diego RN Position: [facility] RN Member Role: Primary Care Nurse Name: Glenys Cardenas RN Position: [facility] RN Member Role: Primary Care Nurse Name: Izzy Escalante RN Position: [facility] RN Member Role: Primary Care Nurse Name: Vasu Joe DO Position: [facility] Physician - Primary Care Member Role: PCP Address: Address: [address] [place] [address] [address] [place] [address]- Name: Mai Hess RN Position: [facility] RN Member Role: Primary Care Nurse Name: Anna Reyes RN Position: [facility] RN Member Role: Primary Care Nurse Name: Mali Mosley RN Position: [facility] RN Member Role: Primary Care Nurse Care Team Related Persons Name: ASAEL BAZAN Address: home [address] [place] [address] Name: KIRILL BAZAN Address: home [address] [place] [address] Name: ZHOU BAZAN Address: [address] Address: home [address] [place] [address] [place]
--- OUTSIDE RECORDS SUMMARY | 2023-05-12 20:00 | XMS_ITS | Continuity of Care Document ---
Author Name Unknown Organization [facility] Address [address] [place] [address], [address] [place] [address]- Care Team Providers Care Acetylene Torch Burner Name Role Phone Vasu Joe DO Primary Care Physician En[place] [facility] [place](s): 02/25/23 - 04/18/23 [facility] [address] [place] [address], [address] [place] [address]- Attending Physician: Pascale Dejesus MD Referring Physician: Stevan Floyd MD Allergies, Adverse Reactions, [...] Soft Stop, 02/13/23 15:55:00 EDT, Tablet, [facility]/pharmacy #[id number], Partial fill upon patient request [...] 0 Refills, Maintenance, 11/23/22 13:00:00 EDT, Tablet, [facility], Partial fill upon [...] 11/23/22 13:00:00 EDT, Route to Pharmacy Electronically, [facility], Partial fill upon [...] 11/23/22 13:00:00 EDT, Route to Pharmacy Electronically, [facility], Partial fill uponpatient [...] Maintenance, 11/23/2312:01:00 EDT, Route to Pharmacy Electronically, [facility] 3, Partial fill upon patientrequest if the prescription is for a schedule II op... Start Date: 11/23/22 Stop Date: 12/07/22 Status: Ordered gabapentin 300 mg oral capsule 600 mg, 2, capsule, By Mouth, 3 times a day, # 180 capsule, Refills 0, Tot. Refills 0, Maintenance,11/23/22 13:00:00 EDT, Route to Pharmacy Electronically, [facility], Partial fill upon [...] 0 Refills, Maintenance, 11/23/22 13:01:00 EDT, Capsule, [facility], Partial fill upon [...] Refills, Maintenance, 11/23/22 14:08:00 EDT, ER Capsule, [facility], Partial fill upon [...] Name: Carla Cooley RN Position: [facility] RN Member Role: Primary Care Nurse Name: Robbie Pichardo RN Position: [facility] RN Member Role: Primary Care Nurse Name: Juwan Gerber RN Position: [facility] RN Member Role: Primary Care Nurse Name: Seven Raines MD Position: [facility] GAS PLANT WORKER MD Member Role: Lifetime GAS PLANT WORKER Physician Address: Address: [address] [place] [address]- Name: Jaja Champagne RN Position: [facility] RN Member Role: Primary Care Nurse Name: Danielle Hernandez LPN Position: [facility] RN Member Role: Primary Care Nurse Name: Nadia Diego RN Position: [facility] RN Member Role: Primary Care Nurse Name: Glenys Cardenas RN Position: [facility] RN Member Role: Primary Care Nurse Name: Izzy Escalante RN Position: [facility] RN Member Role: Primary Care Nurse Name: Vasu Joe DO Position: [facility] Physician - Primary Care Member Role: PCP Address: Address: [address] [place], [place] [id number] [place] [address]- [place] Name: Mai Hess RN Position: [facility] RN Member Role: Primary Care Nurse Name: Anna Reyes RN Position: [facility] RN Member Role: Primary Care Nurse Name: Mali Mosley RN Position: [facility] RN Member Role: Primary Care Nurse Care Team Related Persons Name: ASAEL BAZAN Address: home [address] [place] [address] Name: KIRILL BAZAN Address: [address] [place] [address] Name: ZHOU BAZAN Address: Address: [address] [facility] [place] [address]
--- OUTSIDE RECORDS SUMMARY | 2023-05-12 20:00 | XMS_ITS | Continuity of Care Document ---
Author Name Unknown Organization [facility] Address [address] [place] [address], [address] [place] [address]- Care Team Providers Care Medical Bill Processor Name Role Phone Vasu Joe DO Primary Care Physician [place] [facility] [place] 02/13/23 - 02/20/23 [facility] [address] [place] [address] Drive, [address] [place] [address]- Attending Physician: Bridget Dykes DO Allergies, Adverse [...] Refills, Soft Stop, 02/13/23 15:55:00 EDT, Tablet, [facility]/pharmacy #[id number], Partial fill upon patient request if [...] 0 Refills, Maintenance, 11/23/22 13:00:00 EDT, Tablet, [facility], Partial fill upon patient [...] 13:00:00 EDT, Route to Pharmacy Electronically, [facility], Partial fill upon patient [...] 11/23/22 13:00:00 EDT, Route to Pharmacy Electronically, [facility], Partial fill uponpatient request if the prescription is for a schedu... Start Date: 11/23/22 Stop Date: 12/07/22 Status: Ordered docusate sodium 100 mg oral capsule 100 mg, 1, capsule, By Mouth, 2 times a day, # 60 capsule, Refills 0, Tot. Refills 0, Maintenance, 10/08/20 9:40:00 EDT, [id number], [facility] fill upon [...] Maintenance, 11/23/2312:01:00 EDT, Route to Pharmacy Electronically, [facility], Partial fill upon patientrequest if the prescription is for a schedule II op... Start Date: 11/23/22 Stop Date: 12/07/22 Status: Ordered gabapentin 300 mg oral capsule 600 mg, 2, capsule, By Mouth, 3 times a day, # 180 capsule, Refills 0, Tot. Refills 0, Maintenance,11/23/22 13:00:00 EDT, Route to Pharmacy Electronically, [facility], Partial fill upon patient [...] 0 Refills, Maintenance, 11/23/22 13:01:00 EDT, Capsule, [facility], Partial fill upon patient [...] Refills, Maintenance, 11/23/22 14:08:00 EDT, ER Capsule, [facility], Partial fill upon patient [...] oldest [Reference Range]: 1 Height 165 cm (02/13/23 12:45 PM) Weight 59 kg (02/13/23 12:45 PM) Body Mass Index [18.5-24.99 kg/m2] 21.67 kg/m2 (02/13/23 12:45 PM) Social History Social History Type Response [...] MD Position: [facility] PLASTIC SHEETING CUTTER MD Member Role: Lifetime PLASTIC SHEETING CUTTER Physician Address: Address: [address] [place] [address]- Name: Jaja Champagne RN Position: [facility] Primary Care Member Role: PCP Address: Address: [address] [place] [address]- [place] Name: Mai Hess RN Position: [facility] RN Member Role: Primary Care Nurse Name: Anna Reyes RN Position: [facility] RN Member Role: Primary Care Nurse Name: Mali Mosley RN Position: [facility] RN Member Role: Primary Care Nurse Care Team Related Persons Name: HORTENSIA, ASAEL Address: [address] [place] [address] Name: KIRILL BAZAN Address: home [address] [place] [address] Name: ZHOU BAZAN Address: Address: home [address] [address] [place]
--- OUTSIDE RECORDS SUMMARY | 2023-05-12 20:00 | XMS_ITS | Continuity of Care Document ---
Author Name Unknown Organization [facility] Address [address] [place] [address]- Care Team Providers Care Athletics Director Name Role Phone Heath BACA Vasu Primary Care Physician [place] [facility] [place]22 [facility] [address] [place], [place] [address] Attending Physician: Jose Luis Figueroa Admitting Physician: Admtr, Jose Luis Referring Physician: Admtr, Ar8 Allergies, Adverse [...] 10/08/20 9:40:00 EDT, Route to Pharmacy Electronically, [facility]/pharmacy #[id number], Partial fill upon patient request if the [...] quit vapping th is week . Sex Patient Care team information Care Team Personnel Name: Seven Raines MD Position: [facility] ACADEMIC INTERVENTIONIST MD Member Role: Lifetime ACADEMIC INTERVENTIONIST Physician Address: Address: [address] [place] [address] Name: Vasu Joe DO Position: [facility] Physician (General Medicine) Member Role: PCP Address: Address: [address] [place] [address] [address] Care Team Related Persons Name: ASAEL BAZAN Address: home [address] [place] [address] Name: KIRILL BAZAN Address: home [address] [place] [address] Name: ZHOU BAZAN Address: Address: [address]
--- OUTSIDE RECORDS SUMMARY | 2023-05-12 20:00 | XMS_ITS | Continuity of Care Document ---
Author Name Unknown Organization [facility] Address [address] [place] [address] mario alberto, [address] [place] [address]- Care Team Providers Care Technical Sales Advisor Name Role Phone Vasu Joe DO Primary Care Physician [place] [facility] [place](s): 02/13/23 - 03/15/23 [facility] [address] [place] [address] Drive, [address] [place], [place] [address] Allergies, Adverse Reactions, Alerts Substance Reaction Severity [...] Refills, Soft Stop, 02/13/23 15:55:00 EDT, Tablet, [facility]/pharmacy #[id number], Partial fill upon patient [...] 0 Refills, Maintenance, 11/23/22 13:00:00 EDT, Tablet[facility], Partial fill upon patient request if [...] 11/23/22 13:00:00 EDT, Route to Pharmacy Electronically, [facility], Partial fill upon patient request if... [...] 11/23/22 13:00:00 EDT, Route to Pharmacy Electronically, [facility], Partial fill uponpatient request if the prescription is for a schedu... Start Date: 11/23/22 Stop Date: 12/07/22 Status: Ordered docusate sodium 100 mg oral capsule 100 mg, 1, capsule, By Mouth, 2 times a day, # 60 capsule, Refills 0, Tot. Refills 0, Maintenance, 10/08/20 9:40:00 EDT, [id number], Partial fill upon patient request if [...] Maintenance, 11/23/2312:01:00 EDT, Route to Pharmacy Electronically, [facility], Partial fill upon patientrequest if the prescription is for a schedule II op... Start Date: 11/23/22 Stop Date: 12/07/22 Status: Ordered gabapentin 300 mg oral capsule 600 mg, 2, capsule, By Mouth, 3 times a day, # 180 capsule, Refills 0, Tot. Refills 0, Maintenance,11/23/22 13:00:00 EDT, Route to Pharmacy Electronically, [facility], Partial fill upon patient [...] 0 Refills, Maintenance, 11/23/22 13:01:00 EDT, Capsule, [facility], Partial fill upon patient [...] Refills, Maintenance, 11/23/22 14:08:00 EDT, ER Capsule, [facility], Partial fill upon patient [...] Team Personnel Name: Carla Cooley RN Position: [facility] RN Member Role: Primary Care Nurse Name: Robbie Pichardo RN Position: S RN Member Role: Primary Care Nurse Name: Juwan Gerber RN Position: [facility] RN Member Role: Primary Care Nurse Name: Seven Raines MD Position: [facility] SPECIAL LOAN OFFICER MD Member Role: Lifetime SPECIAL LOAN OFFICER Physician Address: Address: [address] [place] [address]- Name: Jaja Champagne RN Position: [facility] RN Member Role: Primary Care Nurse Name: Danielle Hernandez LPN Position: [facility] RN Member Role: Primary Care Nurse Name: Nadia Diego RN Position: [facility] RN Member Role: Primary Care Nurse Name: Glenys Cardenas RN Position: [facility] RN Member Role: Primary Care Nurse Name: Izzy Escalante RN Position: [facility] RN Member Role: Primary Care Nurse Name: Vasu Joe DO Position: [facility] Physician - Primary Care Member Role: PCP Address: Address: [address] [place], [place] [id number] [place] [address]- Name: Mai Hess RN Position: [facility] RN Member Role: Primary Care Nurse Name: Anna Reeys RN Position: [facility] RN Member Role: Primary Care Nurse Name: Mali Mosley RN Position: [facility] RN Member Role: Primary Care Nurse Care Team Related Persons Name: ASAEL BAZAN Address: home [address] [place] [address] Name: KIRILL BAZAN Address: home [address] [place] [address] Name: ZHOU BAZAN Address: [address] Address: home [address] [place] [address] [place]
--- OUTSIDE RECORDS SUMMARY | 2023-05-12 20:00 | XMS_ITS | Continuity of Care Document ---
Author Name Unknown Organization [facility] Address [address] [place] [address]- Care Team Providers Care Electronics Processor Name Role Phone Vasu Joe DO Primary Care Physician Encounter [facility] Date(s): 02/06/23 - 02/13/23 [facility] [address] [place] [address]- Encounter Diagnosis Cough(Discharge Diagnosis) - 02/06/23 Pneumonia(Discharge Diagnosis) - 02/13/23 Attending Physician: Anali Melchor MD Referring Physician: Vasu Joe DO Allergies, [...] Refills, Soft Stop, 02/13/23 15:55:00 EDT, Tablet, [facility]/pharmacy #[id number], Partial fill upon patient [...] 02/18/23 15:54:00 EDT, 02/13/23 15:54:00 EDT, Tablet, [facility]/pharmacy #[id number], Partial fill upon patient request if the prescription is for a schedule II opioid drug., 1... Start Date: 02/13/23 Stop Date: 02/18/23 Status: Ordered cholecalciferol oral tablet See Instructions, By Mouth Daily, # 30 tablet, 0 Refills, Maintenance, 11/23/22 13:00:00 EDT, Tablet, [facility], Partial fill upon patient request [...] 13:00:00 EDT, Route to Pharmacy Electronically, [facility] 3, Partial fill upon patient request [...] 11/23/22 13:00:00 EDT, Route to Pharmacy Electronically, [facility], Partial fill uponpatient request if the prescription is for a schedu... Start Date: 11/23/22 Stop Date: 12/07/22 Status: Ordered docusate sodium 100 mg oral capsule 100 mg, 1, capsule, By Mouth, 2 times a day, # 60 capsule, Refills 0, Tot. Refills 0, Maintenance, 10/08/20 9:40:00 EDT, [id number] fill upon patient request [...] Maintenance, 11/23/2312:01:00 EDT, Route to Pharmacy Electronically, [facility], Partial fill upon patientrequest if the prescription is for a schedule II op... Start Date: 11/23/22 Stop Date: 12/07/22 Status: Ordered gabapentin 300 mg oral capsule 600 mg, 2, capsule, By Mouth, 3 times a day, # 180 capsule, Refills 0, Tot. Refills 0, Maintenance,11/23/22 13:00:00 EDT, Route to Pharmacy Electronically, [facility], Partial fill upon patient [...] 0 Refills, Maintenance, 11/23/22 13:01:00 EDT, Capsule, [facility], Partial fill upon patient [...] Refills, Maintenance, 11/23/22 14:08:00 EDT, ER Capsule, [facility], Partial fill upon patient request [...] Diagnosis Diagnosis Type Effective Dates Health Status Clini arina Service Informant Cough Discharge Diagnosis 02/06/23 Pneumonia Discharge Diagnosis 02/13/23 Vital Signs Most recent to oldest [Reference Range]: 1 Height 165 cm (02/06/23 6:07 PM) Oxygen Saturation [94-100 %] 95 % (02/06/23 6:07 PM) Pulse Rate [55-90 bpm] 93 bpm *H* (02/06/23 6:07 PM) Blood Pressure [90-138/55-84 mm Hg] 116/ 94mm Hg (02/06/23 6:07 PM) Respiratory Rate [16-30 br/min] 17 br/mi n (02/06/23 6:07 PM) Temperature [96.8-100.4 DegF] 97.6 DegF (02/06/23 6:07 PM) Mode of Delivery (Oxygen) Room air (02/06/23 6:07 PM) Social History Social History Type Response [...] Unknown 11/07/22 Unknown Unknown Active Unkn own Note * Cindy Ramos: PERFORM, SIGN, VERIFY Event Display: Patient Education/Instruction Authored Date: [id number] [facility] Clinical Summary Name KEVIN BAZAN Age 32 Years 1990 PCP Vasu Joe DO PCP Visit Date 02/06/2023 16:51:00 Additional Instructions: Scheduled Appointments?? Future Appointments ?No Future Appointments Scheduled Follow-Up Instructions ?? Diagnosis Cough, unspecified Medications: Please continue your medications until treatment [...] tablet) 1 tab(s) Oral Daily. Next Dose: Cholecalciferol (cholecalciferol oral tablet) By Mouth Daily. Refills: 0. Next Dose: Ciprofloxacin Ophthalmic (ciprofloxacin ophthalmic 0.3% solution) 2 Drops Ophthalmic every 4 hours for 7 Days. to right eye. Refills: 0. Next Dose: Clonazepam 0.5 mg By Mouth 3 times a day. Next Dose: Clonidine (cloNIDine 0.1 mg oral tablet) 1 tab(s) Oral every 8 hours as needed Other for 7 Days. PRN for restlessness. Refills: 0. Next Dose: DiphenhydrAMINE 50 Milligram Oral Daily at Bedtime. Next Dose: Docusate (docusate sodium 100 mg oral capsule) 1 capsule Oral twice a day. Refills: 0. Next Dose: Docusate (docusate sodium 100 mg oral capsule) 1 capsule Oral twice a day for 14 Days. Refills: 0. Next Dose: Doxepin (doxepin 10 mg oral capsule) 1 capsule Oral 3 times a day. Next Dose: Durable Medical Equipment (Shower Bench) shower bench. Refills: 0. Next Dose: Durable Medical Equipment (Shower Chair) shower chair. Refills: 0. Next Dose: Durable Medical Equipment (toilet seat riser) .. Refills: 0. Next Dose: Gabapentin (gabapentin 300 mg oral capsule) 1 capsule Oral 3 times a day. Next Dose: Gabapentin (gabapentin 300 mg oral capsule) 2 capsule Oral 3 times a day for 30 Days. Refills: 0. Next Dose: Loratadine (Claritin 10 mg oral tablet) 1 tab(s) Oral Daily. Next Dose: Melatonin 3 Milligram Oral Daily at Bedtime. Next Dose: Metoclopramide (metoclopramide 5 mg oral tablet) 1 tab(s) Oral every 6 hours. Next Dose: Morphine (morphine 60 mg/24 hours oral capsule, extended release) 60 Milligram Oral Daily for 7 Days. Refills: 0. Next Dose: Nicotine (Leader Nicotine Polacrilex 2 [...] water before taking. Next Dose: Pregabalin (Lyrica 150 mg oral capsule) 2 capsule Oral Daily at Bedtime for 30 Days. Refills: 0. Next Dose: Pregabalin (Lyrica 25 mg oral capsule) Next Dose: Quetiapine (SEROquel 25 mg oral tablet) 1 tab(s) Oral 3 times a day. Next Dose: Tamsulosin (Flomax 0.4 mg oral capsule) 1 capsule Oral Daily for 14 Days. Refills: 0. Next Dose: Allergy Info:?? Bactrim; penicillin; amoxicillin Medications Given This Visit Future Orders ?Chest 2 Views Frontal and Lat? Order Date:02/06/23?- Complete within?3 days Vital Signs Height 165 cm Weight BMI Blood Pressure 116 mm Hg/94 mm Hg Temperature 97.6 DegF Pulse Rate 93 bpm Respiratory Rate 17 br/min 02 Sat Mode of Delivery 95 %/Room air You can now view a summary of your hospital visit from the comfort of your home through a free online portal called [employer]. [employer] is a website that allows you to securely view your medical information including discharge summary, medications and follow-up visits. ??You can alsosend a secure electronic message to your doctor???s office to request appointments, renew medications or just ask a question. You can enroll at [email or web address] or register during your next office visit. [...] primary care provider, you may find a [facility] provider by calling [facility] [email or web address] Link at [phone]. For information about the plan of care [...] Team Personnel Name: Carla Cooley RN Position: [facility] RN Member Role: Primary Care Nurse Name: Robbie Pichardo RN Position: S RN Member Role: Primary Care Nurse Name: Juwan Gerber RN Position: [facility] RN Member Role: Primary Care Nurse Name: Seven Raines MD Position: [facility] PUTTY AND PATCH WORKER MD Member Role: Lifetime PUTTY AND PATCH WORKER Physician Address: Address: [address] [place] [id number] Name: Jaja Champagne RN Position: [facility] RN Member Role: Primary Care Nurse Name: Danielle Hernandez LPN Position: [facility] RN Member Role: Primary Care Nurse Name: Nadia Diego RN Position: [facility] RN Member Role: Primary Care Nurse Name: Glenys Cardenas RN Position: [facility] RN Member Role: Primary Care Nurse Name: Izzy Escalante RN Position: [facility] RN Member Role: Primary Care Nurse Name: Vasu Joe DO Position: [facility] Physician - Primary Care Member Role: PCP Address: Address: [address] [place], [place] [id number] [place], [place] [address] Name: Mai Hess RN Position: [facility] RN Member Role: Primary Care Nurse Name: Anna Reyes RN Position: [facility] RN Member Role: Primary Care Nurse Name: Mali Mosley RN Position: [facility] RN Member Role: Primary Care Nurse Care Team Related Persons Name: ASAEL BAZAN Address: home [address] [place] [address] Name: KIRILL BAZAN Address: home [address] [place] [address] Name: ZHOU BAZAN Address: Address: home [address] [address]
--- OUTSIDE RECORDS SUMMARY | 2023-05-12 20:00 | XMS_ITS | Continuity of Care Document ---
Author Name Unknown Organization [facility] Address [address] [place] [address] mario alberto, [address] [place] [address]- Care Team Providers Care Narrow Fabric Calenderer Name Role Phone Vasu Joe DO Primary Care Physician Encounter [facility] Date(s): 03/26/23 - 04/25/23 [facility] [address] [place] [address] Drive, [address] [place] [address]- Allergies, Adverse Reactions, Alerts Substance Reaction Severity [...] Refills, Soft Stop, 02/13/23 15:55:00 EDT, Tablet, [facility]/pharmacy #[id number], Partial fill upon patient [...] 0 Refills, Maintenance, 11/23/22 13:00:00 EDT, Tablet, [facility], Partial fill upon patient [...] 11/23/22 13:00:00 EDT, Route to Pharmacy Electronically, [facility], Partial fill uponpatient request if the prescription is for a schedu... Start Date: 11/23/22 Stop Date: 12/07/22 Status: Ordered docusate sodium 100 mg oral capsule 100 mg, 1, capsule, By Mouth, 2 times a day, # 60 capsule, Refills 0, Tot. Refills 0, Maintenance, 10/08/20 9:40:00 EDT, [id number] Partial fill upon patient request if [...] Maintenance, 11/23/2312:01:00 EDT, Route to Pharmacy Electronically, [facility], Partial fill upon patientrequest if the prescription is for a schedule II op... Start Date: 11/23/22 Stop Date: 12/07/22 Status: Ordered gabapentin 300 mg oral capsule 600 mg, 2, capsule, By Mouth, 3 times a day, # 180 capsule, Refills 0, Tot. Refills 0, Maintenance,11/23/22 13:00:00 EDT, Route to Pharmacy Electronically, [facility], Partial fill upon patient [...] 0 Refills, Maintenance, 11/23/22 13:01:00 EDT, Capsule, [facility], Partial fill upon patient [...] Refills, Maintenance, 11/23/22 14:08:00 EDT, ER Capsule, [facility], Partial fill upon patient [...] Team Personnel Name: Carla Cooley RN Position: [facility] RN Member Role: Primary Care Nurse Name: Robbie Pichardo RN Position: S RN Member Role: Primary Care Nurse Name: Juwan Gerber RN Position: [facility] RN Member Role: Primary Care Nurse Name: Seven Raines MD Position: [facility] MACHINE II ENGRAVER MD Member Role: Lifetime MACHINE II ENGRAVER Physician Address: Address: [address] [place] [address]- Name: Jaja Champagne RN Position: [facility] RN Member Role: Primary Care Nurse Name: Danielle Hernandez LPN Position: [facility] RN Member Role: Primary Care Nurse Name: Nadia Diego RN Position: [facility] RN Member Role: Primary Care Nurse Name: Glenys Cardenas RN Position: [facility] RN Member Role: Primary Care Nurse Name: Izzy Escalante RN Position: [facility] RN Member Role: Primary Care Nurse Name: Vasu Joe DO Position: [facility] Physician - Primary Care Member Role: PCP Address: Address: [address] [place], [place] [id number] [place] [address]- Name: Mai Hess RN Position: [facility] RN Member Role: Primary Care Nurse Name: Anna Reyes RN Position: [facility] RN Member Role: Primary Care Nurse Name: Mali Mosley RN Position: [facility] RN Member Role: Primary Care Nurse Care Team Related Persons Name: ASAEL BAZAN Address: [address] [place] [address] Name: KIRILL BAZAN Address: home [address] [place] [address] Name: ZHOU BAZAN Address: Address: home [address] [place] [address] [place] [address] [place]
--- OUTSIDE RECORDS SUMMARY | 2023-05-12 20:00 | XMS_ITS | Continuity of Care Document ---
Author Name Unknown Organization [facility] Address [address] [place] [address] mario alberto, [address] [place] [address]- Care Team Providers Care Computational Mathematician Name Role Phone Vasu Joe DO Primary Care Physician Encounter [facility] Date(s): 02/25/23 - 03/27/23 [facility] [address] [place] [address], [address] [place] [address]- Allergies, Adverse Reactions, Alerts Substance Reaction Severity Status amoxicillin Active penicillin Active Bactrim hives Active Immunizations Given and Recorded Vaccine Date Status Refusal Reason influenza virus vaccine, inactivated 04/05/22 Edni rded pneumococcal 23-valent vaccine 01/31/16 Recorded tetanus/diphtheria/pertussis, [...] Refills, Soft Stop, 02/13/23 15:55:00 EDT, Tablet, [facility] #[id number], Partial fill upon patient request if [...] 0 Refills, Maintenance, 11/23/22 13:00:00 EDT, Tablet, [facility], Partial fill upon patient [...] 13:00:00 EDT, Route to Pharmacy Electronically, [facility], Partial fill upon patient request [...] 13:00:00 EDT, Route to Pharmacy Electronically, [facility], Partial fill uponpatient request if the prescription is for a schedu... Start Date: 11/23/22 Stop Date: 12/07/22 Status: Ordered docusate sodium 100 mg oral capsule 100 mg, 1, capsule, By Mouth, 2 times a day, # 60 capsule, Refills 0, Tot. Refills 0, Maintenance, 10/08/20 9:40:00 EDT, [id number] fill upon patient request if [...] Maintenance, 11/23/2312:01:00 EDT, Route to Pharmacy Electronically, [facility], Partial fill upon patientrequest if the prescription is for a schedule II op... Start Date: 11/23/22 Stop Date: 12/07/22 Status: Ordered gabapentin 300 mg oral capsule 600 mg, 2, capsule, By Mouth, 3 times a day, # 180 capsule, Refills 0, Tot. Refills 0, Maintenance,11/23/22 13:00:00 EDT, Route to Pharmacy Electronically, [facility], Partial fill upon patient [...] 0 Refills, Maintenance, 11/23/22 13:01:00 EDT, Capsule, [facility], Partial fill upon patient [...] Refills, Maintenance, 11/23/22 14:08:00 EDT, ER Capsule, [facility] 3, Partial fill upon patient request if [...] Care Nurse Name: Juwan Gerber RN Position: [facility] RN Member Role: Primary Care Nurse Name: Seven Raines MD Position: [facility] VALVE STEAMER MD Member Role: Lifetime VALVE STEAMER Physician Address: Address: [address] [place] [address]- Name: Jaja Champagne RN Position: [facility] RN Member Role: Primary Care Nurse Name: Danielle Hernandez LPN Position: [facility] RN Member Role: Primary Care Nurse Name: Nadia Diego RN Position: [facility] RN Member Role: Primary Care Nurse Name: Glenys Cardenas RN Position: [facility] RN Member Role: Primary Care Nurse Name: Izzy Escalante RN Position: [facility] RN Member Role: Primary Care Nurse Name: Vasu Joe DO Position: [facility] Physician - Primary Care Member Role: PCP Address: Address: [address] [place], [place] [id number] [place] [address]- Name: Mai Hess RN Position: [facility] RN Member Role: Primary Care Nurse Name: Anna Reyes RN Position: [facility] RN Member Role: Primary Care Nurse Name: Mali Mosley RN Position: [facility] RN Member Role: Primary Care Nurse Care Team Related Persons Name: ASAEL BAZAN Address: [address] [place] [address] Name: KIRILL BAZAN Address: home [address] [place] [address] Name: ZHOU BAZAN Address: Address: home [address] [place] [address] [place]
--- OUTSIDE RECORDS SUMMARY | 2023-05-12 20:00 | XMS_ITS | Continuity of Care Document ---
Author Name Unknown Organization [facility] Address [address] [place] [address]- Care Team Providers Care Produce Production Team Member Name Role Phone Vasu Joe DO Primary Care Physician Encounter [facility] Date(s): 10/03/20 - 10/08/[address] [id number] Discharge Disposition: A-D/C Home Attending Physician: Seven Raines MD Admitting Physician: Seven Raines MD Referring Physician: Seven Raines MD Allergies, Adverse Reactions, Alerts Substance Reaction [...] 12/12/16 3:49:11 Start Date: 12/12/16 Status: Ordered Dilaudid 2 mg oral tablet 1 tablet = 2 mg, By Mouth, Every 6 hours, PRN Pain , Severe, for 5 days, # 15 tablet, 0 Refills, Acute 10/13/20 9:39:00 EDT, 10/08/20 9:39:00 EDT, Tablet, [facility]/pharmacy #[id number], Partial fill upon patient request if the prescription is for a schedule II o... Start Date: 10/08/20 Stop Date: 10/13/20 Status: Ordered Dilaudid 2 mg oral tablet 4 mg, Tablet, By Mouth, Every 3 hours, PRN for Pain , Severe, Routine, 10/05/20 22:40:00 EDT Start Date: 10/05/20 Stop Date: 10/08/20 Status: Discontinued DiphenhydrAMINE = 50 mg, By Mouth, Daily [...] II o... Start Date: 10/08/20 Status: Ordered ibuprofen 800 mg oral tablet 800 mg, 1, tablet, By Mouth, Every 8 hours, for 10 days, # 30 tablet, Refills 1, Tot. Refills 1, Acute 10/28/20 9:39:00 EDT, 10/08/20 9:39:00 EDT, Route to Pharmacy Electronically, [id number], Partial fill upon patient request if the prescript... Start Date: 10/08/20 Stop Date: 10/28/20 Status: Ordered Leader Nicotine Polacrilex 2 mg [...] 12/12/16 3:48:27 Start Date: 12/12/16 Status: Ordered simethicone 80 mg oral tablet, chewable 80 mg, Chew, 5 times a day, PRN, for 7 days, # 36 tablet, Refills 0, Tot. Refills 0, Acute :39:00 EDT, Gas, 10/08/20 9:39:00 EDT, Route to Pharmacy Electronically, [facility]/pharmacy #[id number], Partial fill upon patient request if the prescription is... Start Date: 10/08/20 Stop Date: 10/15/20 Status: Ordered Zofran 4 mg oral tablet 1 tablet = 4 mg, By Mouth, Every 8 hours, PRN Nausea & Vomiting, # 4 tablet, 0 Refills, Maintenance, Tablet Start Date: 01/13/12 Status: Ordered Procedures Procedure Date Related Diagnosis Body Site Status delivery only; 10/04/20 C ompleted Vital Signs Most recent to oldest [Reference Range]: 1 2 3 Height 160 cm (10/08/20 8:00 AM) 160 cm (10/08/20 6:27 AM) 160 cm (10/08/20 2:02 AM) Weight 74 kg (10/03/20 10:12 AM) Oxygen Saturation [94-100 %] 95 % (10/08/20 8:00 AM) 95 % (10/08/20 6:27 AM) 99 % (10/08/20 2:02 AM) Pulse Rate [55-90 bpm] 83 bpm (10/08/20 8:00 AM) 73 bpm (10/08/20 6:27 AM) 92 bpm *H* (10/08/20 2:02 AM) Body Mass Index [18.5-24.99] 28.91 *H* (10/03/20 10:12 AM) Blood Pressure [90-138/55-84 mm Hg] 137/88mm Hg (10/08/20 8:00 AM) 105/67mm Hg (10/08/20 6:27 AM) 138/82mm Hg (10/08/20 2:02 AM) Respiratory Rate [16-30 br/min] 20 br/min (10/08/20 9:51 AM) 18 br/min (10/08/20 8:00 AM) 18 br/min (10/08/20 6:27 AM) Temperature [96.8-100.4 DegF] 98.0 DegF (10/08/20 8:00 AM) 97.6 DegF (10/08/20 2:02 AM) 97.5 DegF (10/08/20 12:09 AM) Mode of Delivery (Oxygen) Room air (10/08/20 8:00 AM) Room air (10/08/20 6:27 AM) Room air (10/08/20 2:02 AM) Blood pressure sites Arm, right (10/08/20 8:00 AM) Arm, right (10/08/20 6:27 AM) Arm, right (10/08/20 2:02 AM) Temperature Route Oral (10/08/20 8:00 AM) Oral (10/08/20 2:02 AM) Oral (10/08/20 12:09 AM) Dry Weight 74 kg (10/03/20 10:12 AM) Weight Obtained Via Patient/family state d (10/03/20 10:12 AM) Social History Social History Type Response Tobacco Use: 4 or less cigar ettes(less than 1/4 pack)/day in last 30 days. Sex
--- OUTSIDE RECORDS SUMMARY | 2023-05-12 20:00 | XMS_ITS | Continuity of Care Document ---
Author Name Unknown Organization [facility] Address [address] [place] [address], [address] [place] [address]- Care Team Providers Care Senior Svp Name Role Phone Vasu Joe DO Primary Care Physician Encounter [facility] Date(s): 01/21/23 - 01/28/23 [facility] [address] [place] [address], [address] [place], [place] [address] Attending Physician: Bridget Dykes DO Allergies, Adverse [...] 0 Refills, Maintenance, 11/23/22 13:00:00 EDT, Tablet, [facility], Partial fill upon patient request if [...] 11/23/22 13:00:00 EDT, Route to Pharmacy Electronically, [facility] 3, Partial fill upon patient request [...] 11/23/22 13:00:00 EDT, Route to Pharmacy Electronically, [facility], Partial fill uponpatient request if the prescription is for a schedu... Start Date: 11/23/22 Stop Date: 12/07/22 Status: Ordered docusate sodium 100 mg oral capsule 100 mg, 1, capsule, By Mouth, 2 times a day, # 60 capsule, Refills 0, Tot. Refills 0, Maintenance, 10/08/20 9:40:00 EDT, [id number] fill upon patient [...] Maintenance, 11/23/2312:01:00 EDT, Route to Pharmacy Electronically, [facility], Partial fill upon patientrequest if the prescription is for a schedule II op... Start Date: 11/23/22 Stop Date: 12/07/22 Status: Ordered gabapentin 300 mg oral capsule 600 mg, 2, capsule, By Mouth, 3 times a day, # 180 capsule, Refills 0, Tot. Refills 0, Maintenance,11/23/22 13:00:00 EDT, Route to Pharmacy Electronically, [facility], Partial fill upon patient [...] 0 Refills, Maintenance, 11/23/22 13:01:00 EDT, Capsule, [facility], Partial fill upon patient [...] Refills, Maintenance, 11/23/22 14:08:00 EDT, ER Capsule, [facility], Partial fill upon patient [...] Seven Raines MD Position: [facility] BRAZER PRODUCTION LINE MD Member Role: [employer]etime BRAZER PRODUCTION LINE Physician Address: Address: [address] [place] [address] Name: Jaja Champagne RN Position: [facility] RN Member Role: Primary Care Nurse Name: Danielle Hernandez LPN Position: S RN Member Role: Primary Care Nurse Name: Nadia Diego RN Position: [facility] RN Member Role: Primary Care Nurse Name: Glenys Cardenas RN Position: [facility] RN Member Role: Primary Care Nurse Name: Izzy Escalante RN Position: [facility] RN Member Role: Primary Care Nurse Name: Vasu Joe DO Position: [facility] Physician - Primary Care Member Role: PCP Address: Address: [address] [place] [address] [address] [place] [address]- [place] Name: Mai Hess RN Position: [facility] RN Member Role: Primary Care Nurse Name: Anna Reyes RN Position: [facility] RN Member Role: Primary Care Nurse Name: Mali Mosley RN Position: [facility] RN Member Role: Primary Care Nurse Care Team Related Persons Name: ASAEL BAZAN Address: home [address] [place] [address] Name: KIRILL BAZAN Address: home [address] [place] [address] Name: ZHOU BAZAN Address: Address: home [address] [address] [place]
--- OUTSIDE RECORDS SUMMARY | 2023-05-12 20:00 | XMS_ITS | Continuity of Care Document ---
Author Name Unknown Organization [facility] Address [address] [place] [address] ve [address] [place] [address]- Care Team Providers Care Research Professor Name Role Phone Vasu Joe DO Primary Care Physician [place] [facility] [place] 12/12/22 - 01/11/[address] [place] [address]- Attending Physician: AdmDimitri [email or web address] Admitting Physician: AdmtrJose [...] 0 Refills, Maintenance, 11/23/22 13:00:00 EDT, Tablet, [facility], Partial fill upon [...] EDT, Route to Pharmacy Electronically, [facility], Partial fill upon [...] 11/23/22 13:00:00 EDT, Route to Pharmacy Electronically, [facility], Partial fill uponpatient request if the prescription is for a schedu... Start Date: 11/23/22 Stop Date: 12/07/22 Status: Ordered docusate sodium 100 mg oral capsule 100 mg, 1, capsule, By Mouth, 2 times a day, # 60 capsule, Refills 0, Tot. Refills 0, Maintenance, 10/08/20 9:40:00 EDT, [id number], Partial fill upon patient request if [...] Maintenance, 11/23/2312:01:00 EDT, Route to Pharmacy Electronically, [facility], Partial fill upon patientrequest if the prescription is for a schedule II op... Start Date: 11/23/22 Stop Date: 12/07/22 Status: Ordered gabapentin 300 mg oral capsule 600 mg, 2, capsule, By Mouth, 3 times a day, # 180 capsule, Refills 0, Tot. Refills 0, Maintenance,11/23/22 13:00:00 EDT, Route to Pharmacy Electronically, [facility], Partial fill upon patient request [...] 0 Refills, Maintenance, 11/23/22 13:01:00 EDT, Capsule, [facility], Partial fill upon patient request [...] Refills, Maintenance, 11/23/22 14:08:00 EDT, ER Capsule, [facility], Partial fill upon patient request [...] Team Personnel Name: Carla Cooley RN Position: [facility] RN Member Role: Primary Care Nurse Name: Robbie Pichardo RN Position: [facility] RN Member Role: Primary Care Nurse Name: Juwan Gerber RN Position: S RN Member Role: Primary Care Nurse Name: Seven Raines MD Position: [facility] ARMATURE STRAIGHTENER MD Member Role: Lifetime ARMATURE STRAIGHTENER Physician Address: Address: [address] [address]- Name: Jaja Champagne RN Position: S RN Member Role: Primary Care Nurse Name: Danielle Hernandez LPN Position: S RN Member Role: Primary Care Nurse Name: Nadia Diego RN Position: S RN Member Role: Primary Care Nurse Name: Glenys Cardenas RN Position: S RN Member Role: Primary Care Nurse Name: Izzy Escalante RN Position: [facility] RN Member Role: Primary Care Nurse Name: Vasu Joe DO Position: [facility] Physician - Primary Care Member Role: PCP Address: Address: [address] [facility] [address] [place] [address]- Name: Mai Hess RN Position: S RN Member Role: Primary Care Nurse Name: Anna Reyes RN Position: [facility] RN Member Role: Primary Care Nurse Name: Mali Mosley RN Position: [facility] RN Member Role: Primary Care Nurse Care Team Related Persons Name: ASAEL BAZAN Address: home [address] [place] [address] Name: KIRILL BAZAN Address: home [address] [place] [address] Name: ZHOU BAZAN Address: Address: home [address] [place] [address]
--- OUTSIDE RECORDS SUMMARY | 2023-05-12 20:00 | XMS_ITS | Continuity of Care Document ---
Author Name Unknown Organization [facility] Address [address] [place] [address] mario alberto, [address] [place] [address]- Care Team Providers Care Yarn Finisher Name Role Phone Vasu Joe DO Primary Care Physician Encounter [facility] Date(s): 12/12/22 - 01/11/23 [facility] [address] [place] [address] Drive, [address] [place], [place] [address] Attending Physician: AdmDimitri [email or web address] Admitting Physician: [...] 0 Refills, Maintenance, 11/23/22 13:00:00 EDT, Tablet, [facility], Partial fill upon patient request if [...] 11/23/22 13:00:00 EDT, Route to Pharmacy Electronically, [facility], Partial fill upon patient request if... [...] 11/23/22 13:00:00 EDT, Route to Pharmacy Electronically, [facility], Partial fill uponpatient request if the prescription is for a schedu... Start Date: 11/23/22 Stop Date: 12/07/22 Status: Ordered docusate sodium 100 mg oral capsule 100 mg, 1, capsule, By Mouth, 2 times a day, # 60 capsule, Refills 0, Tot. Refills 0, Maintenance, 10/08/20 9:40:00 EDT, [id number], Partial fill upon patient request [...] Maintenance, 11/23/2312:01:00 EDT, Route to Pharmacy Electronically, [facility], Partial fill upon patientrequest if the prescription is for a schedule II op... Start Date: 11/23/22 Stop Date: 12/07/22 Status: Ordered gabapentin 300 mg oral capsule 600 mg, 2, capsule, By Mouth, 3 times a day, # 180 capsule, Refills 0, Tot. Refills 0, Maintenance,11/23/22 13:00:00 EDT, Route to Pharmacy Electronically, [facility], Partial fill upon patient [...] 0 Refills, Maintenance, 11/23/22 13:01:00 EDT, Capsule, [facility], Partial fill upon patient [...] Refills, Maintenance, 11/23/22 14:08:00 EDT, ER Capsule, [facility], Partial fill upon patient [...] Team Personnel Name: Carla Cooley RN Position: [facility] RN Member Role: Primary Care Nurse Name: Robbie Pichardo RN Position: [facility] RN Member Role: Primary Care Nurse Name: Juwan Gerber RN Position: S RN Member Role: Primary Care Nurse Name: Seven Raines MD Position: [facility] TEST DRIVER MD Member Role: Lifetime TEST DRIVER Physician Address: Address: [address] [address]- Name: Jaja Champagne RN Position: S RN Member Role: Primary Care Nurse Name: Danielle Hernandez LPN Position: S RN Member Role: Primary Care Nurse Name: Nadia Diego RN Position: S RN Member Role: Primary Care Nurse Name: Glenys Cardenas RN Position: S RN Member Role: Primary Care Nurse Name: Izzy Escalante RN Position: [facility] RN Member Role: Primary Care Nurse Name: Vasu Joe DO Position: [facility] Physician - Primary Care Member Role: PCP Address: Address: [address] [facility] [address] [place] [address]- Name: Mai Hess RN Position: S RN Member Role: Primary Care Nurse Name: Anna Reyes RN Position: [facility] RN Member Role: Primary Care Nurse Name: Mali Mosley RN Position: [facility] RN Member Role: Primary Care Nurse Care Team Related Persons Name: ASAEL BAZAN Address: home [address] [place] [address] Name: KIRILL BAZAN Address: home [address] [place] [address] Name: ZHOU BAZAN Address: Address: home [address] [place] [address]
--- OUTSIDE RECORDS SUMMARY | 2023-05-12 20:00 | XMS_ITS | Continuity of Care Document ---
Author Name Unknown Organization [facility] Address [address] [place] [address] [address] [place] [address]- Care Team Providers Care Director Data Management Name Role Phone Vasu Joe DO Primary Care Physician Encounter [facility] Date(s): 02/12/23 - 03/14/23 [facility] [address] [place], [place] [address] Allergies, Adverse Reactions, Alerts Substance Reaction Severity [...] Soft Stop, 02/13/23 15:55:00 EDT, Tablet, [id number], Partial fill upon patient [...] 0 Refills, Maintenance, 11/23/22 13:00:00 EDT, Tablet, [facility], Partial fill upon patient request if [...] 11/23/22 13:00:00 EDT, Route to Pharmacy Electronically, [facility], Partial fill upon patient request [...] 13:00:00 EDT, Route to Pharmacy Electronically, [facility], Partial fill uponpatient request if the prescription is for a schedu... Start Date: 11/23/22 Stop Date: 12/07/22 Status: Ordered docusate sodium 100 mg oral capsule 100 mg, 1, capsule, By Mouth, 2 times a day, # 60 capsule, Refills 0, Tot. Refills 0, Maintenance, 10/08/20 9:40:00 EDT, [id number] Partial fill upon patient request [...] Maintenance, 11/23/2312:01:00 EDT, Route to Pharmacy Electronically, [facility], Partial fill upon patientrequest if the prescription is for a schedule II op... Start Date: 11/23/22 Stop Date: 12/07/22 Status: Ordered gabapentin 300 mg oral capsule 600 mg, 2, capsule, By Mouth, 3 times a day, # 180 capsule, Refills 0, Tot. Refills 0, Maintenance,11/23/22 13:00:00 EDT, Route to Pharmacy Electronically, [facility], Partial fill upon patient request [...] 0 Refills, Maintenance, 11/23/22 13:01:00 EDT, Capsule, [facility], Partial fill upon patient request [...] Refills, Maintenance, 11/23/22 14:08:00 EDT, ER Capsule, [facility], Partial fill upon patient request [...] Team Personnel Name: Carla Cooley RN Position: [facility] RN Member Role: Primary Care Nurse Name: Robbie Pichardo RN Position: S RN Member Role: Primary Care Nurse Name: Juwan Gerber RN Position: [facility] RN Member Role: Primary Care Nurse Name: Seven Raines MD Position: [facility] HOUSEHOLD WORKER MD Member Role: Lifetime HOUSEHOLD WORKER Physician Address: Address: [address] [place] [id number] Name: Jaja Champagne RN Position: [facility] RN Member Role: Primary Care Nurse Name: Danielle Hernandez LPN Position: [facility] RN Member Role: Primary Care Nurse Name: Nadia Diego RN Position: [facility] RN Member Role: Primary Care Nurse Name: Glenys Cardeans RN Position: [facility] RN Member Role: Primary Care Nurse Name: Izzy Escalante RN Position: [facility] RN Member Role: Primary Care Nurse Name: Vasu Joe DO Position: [facility] Physician - Primary Care Member Role: PCP Address: Address: [address] [place], [place] [address] [place] [address]- Name: Mai Hess RN Position: [facility] RN Member Role: Primary Care Nurse Name: Anna Reyes RN Position: [facility] RN Member Role: Primary Care Nurse Name: Mali Mosley RN Position: [facility] RN Member Role: Primary Care Nurse Care Team Related Persons Name: ASAEL BAZAN Address: [address] [place] [address] Name: KIRILL BAZAN Address: home [address] [place] [address] Name: ZHOU BAZAN Address: [address] Address: home [address] [place] [address]
--- OUTSIDE RECORDS SUMMARY | 2023-05-12 20:00 | XMS_ITS | Continuity of Care Document ---
Author Name Unknown Organization [facility] Address [address] [place] [address] mario alberto, [address] [place] [address]- Care Team Providers Care Shift Coordinator Name Role Phone Vasu Joe DO Primary Care Physician Encounter [facility] Date(s): 03/15/23 - 04/14/23 [facility] [address] [place] [address] Drive, [address] [place], [place] [address] Allergies, Adverse Reactions, Alerts Substance Reaction [...] Soft Stop, 02/13/23 15:55:00 EDT, Tablet, [facility][id number], Partial fill upon patient [...] 13:00:00 EDT, Tablet, [facility], Partial fill upon patient request if [...] 11/23/22 13:00:00 EDT, Route to Pharmacy Electronically, [facility], Partial fill upon patient request if... [...] 11/23/22 13:00:00 EDT, Route to Pharmacy Electronically, [facility], Partial fill uponpatient request if the prescription is for a schedu... Start Date: 11/23/22 Stop Date: 12/07/22 Status: Ordered docusate sodium 100 mg oral capsule 100 mg, 1, capsule, By Mouth, 2 times a day, # 60 capsule, Refills 0, Tot. Refills 0, Maintenance, 10/08/20 9:40:00 EDT, [id number], Partial fill upon patient [...] Name: Carla Cooley RN Position: [facility] RN Member Role: Primary Care Nurse Name: Robbie Pichardo RN Position: S RN Member Role: Primary Care Nurse Name: Juwan Gerber RN Position: [facility] RN Member Role: Primary Care Nurse Name: Seven Raines MD Position: [facility] ADVERTISING SALES CONSULTANT MD Member Role: Lifetime ADVERTISING SALES CONSULTANT Physician Address: Address: [address] [place] [address]- Name: Jaja Champagne RN Position: [facility] RN Member Role: Primary Care Nurse Name: Danielle Hernandez LPN Position: [facility] RN Member Role: Primary Care Nurse Name: Nadia Diego RN Position: [facility] RN Member Role: Primary Care Nurse Name: Glenys Cardenas RN Position: [facility] RN Member Role: Primary Care Nurse Name: Izzy Escalante RN Position: [facility] RN Member Role: Primary Care Nurse Name: Vasu Joe DO Position: [facility] Physician - Primary Care Member Role: PCP Address: Address: [address] [place], [place] [id number] [place] [address]- Name: Mai Hess RN Position: [facility] RN Member Role: Primary Care Nurse Name: Anna Reyes RN Position: [facility] RN Member Role: Primary Care Nurse Name: Mali Mosley RN Position: [facility] RN Member Role: Primary Care Nurse Care Team Related Persons Name: ASAEL BAZAN Address: home [address] [place] [address] Name: KIRILL BAZAN Address: home [address] [place] [address] Name: ZHOU BAZAN Address: [address] Address: home [address] [place] [address] [place]
--- OUTSIDE RECORDS SUMMARY | 2023-05-12 20:00 | XMS_ITS | Continuity of Care Document ---
Author Name Unknown Organization [facility] Address [address] [place] [address] mario alberto, [address] [place] [address]- Care Team Providers Care Project Structural Engineer Name Role Phone Vasu Joe DO Primary Care Physician [place] [facility] [place] 12/10/22 - 01/09/23 [facility] [address] [place] [address] Drive, [address] [place] [address]- Allergies, Adverse Reactions, Alerts Substance Reaction Severity [...] 13:00:00 EDT, Tablet, [facility], Partial fill upon patient [...] 13:00:00 EDT, Route to Pharmacy Electronically, [facility] 3, Partial fill upon patient request if... [...] 10/08/20 9:40:00 EDT, [id number] Partial fill upon patient request [...] Name: Carla Cooley RN Position: [facility] RN Member Role: Primary Care Nurse Name: Robbie Pichardo RN Position: [facility] RN Member Role: Primary Care Nurse Name: Juwan Gerber RN Position: [facility] RN Member Role: Primary Care Nurse Name: Seven Raines MD Position: [facility] TOLL BRIDGE ATTENDANT Member Role: Lifetime TOLL BRIDGE ATTENDANT Physician Address: Address: [address] [place] [address] Name: Jaja Champagne RN Position: [facility] RN Member Role: Primary Care Nurse Name: Danielle Hernandez LPN Position: [facility] RN Member Role: Primary Care Nurse Name: Nadia Diego RN Position: [facility] RN Member Role: Primary Care Nurse Name: Glenys Cardenas RN Position: [facility] RN Member Role: Primary Care Nurse Name: Izzy Escalante RN Position: [facility] RN Member Role: Primary Care Nurse Name: Vasu Joe DO Position: [facility] Physician - Primary Care Member Role: PCP Address: Address: [address] [place], [place] [id number] [address] Name: Mai Hess RN Position: [facility] RN Member Role: Primary Care Nurse Name: Anna Reyes RN Position: [facility] RN Member Role: Primary Care Nurse Name: Mali Mosley RN Position: [facility] RN Member Role: Primary Care Nurse Care Team Related Persons Name: ASAEL BZAAN Address: home [address] [place] [address] Name: KIRILL BAZAN Address: home [address] [place] [address] Name: ZHOU BAZAN Address: [address] Address: home [address] [place] [id number] [place]
--- OUTSIDE RECORDS SUMMARY | 2023-05-12 20:00 | XMS_ITS | Continuity of Care Document ---
Author Name Unknown Organization [facility] Address [address] [place] [address] mario alberto, [address] [place] [address]- Care Team Providers Care Solar Sales Rep Name Role Phone Vasu Joe DO Primary Care Physician Encounter [facility] [place] Date(s): 01/18/23 - 02/17/23 [facility] [address] [place] [address] Drive, [address] [place] [address]- Allergies, Adverse Reactions, Alerts Substance Reaction Severity [...] Refills, Soft Stop, 02/13/23 15:55:00 EDT, Tablet, [facility]/pharmacy #[id number], Partial fill upon patient request [...] 02/18/23 15:54:00 EDT, 02/13/23 15:54:00 EDT, Tablet, [facility]/pharmacy #[id number], Partial fill upon patient request if the prescription is for a schedule II opioid drug., 1... Start Date: 02/13/23 Stop Date: 02/18/23 Status: Ordered cholecalciferol oral tablet See Instructions, By Mouth Daily, # 30 tablet, 0 Refills, Maintenance, 11/23/22 13:00:00 EDT, Tablet, [facility] 3, Partial fill upon patient request if [...] 11/23/22 13:00:00 EDT, Route to Pharmacy Electronically, [facility] 3, Partial fill upon patient request if... [...] EDT, Route to Pharmacy Electronically, [facility] 3, Partial fill uponpatient request if the [...] Maintenance, 11/23/2312:01:00 EDT, Route to Pharmacy Electronically, [facility], Partial fill upon patientrequest if the prescription is for a schedule II op... Start Date: 11/23/22 Stop Date: 12/07/22 Status: Ordered gabapentin 300 mg oral capsule 600 mg, 2, capsule, By Mouth, 3 times a day, # 180 capsule, Refills 0, Tot. Refills 0, Maintenance,11/23/22 13:00:00 EDT, Route to Pharmacy Electronically, [facility], Partial fill upon patient [...] 0 Refills, Maintenance, 11/23/22 13:01:00 EDT, Capsule, [facility], Partial fill upon patient [...] Refills, Maintenance, 11/23/22 14:08:00 EDT, ER Capsule, [facility] 3, Partial fill upon patient request if [...] Team Personnel Name: Carla Cooley RN Position: [facility] RN Member Role: Primary Care Nurse Name: Robbie Pichardo RN Position: [facility] RN Member Role: Primary Care Nurse Name: Juwan Gerber RN Position: [facility] RN Member Role: Primary Care Nurse Name: Seven Raines MD Position: [facility] RECOVERY COACH MD Member Role: [employer] RECOVERY COACH Physician Address: Address: [address] [place] [address]- Name: Jaja Champagne RN Position: [facility] RN Member Role: Primary Care Nurse Name: Danielle Hernandez LPN Position: [facility] RN Member Role: Primary Care Nurse Name: Nadia Diego RN Position: [facility] RN Member Role: Primary Care Nurse Name: Glenys Cardenas RN Position: [facility] RN Member Role: Primary Care Nurse Name: Izzy Escalante RN Position: [facility] RN Member Role: Primary Care Nurse Name: Vasu Joe DO Position: [facility] Physician - Primary Care Member Role: PCP Address: Address: [address] [place] [id number]- [place] Name: Mai Hess RN Position: [facility] RN Member Role: Primary Care Nurse Name: Anna Reyes RN Position: S RN Member Role: Primary Care Nurse Name: Mali oMsley RN Position: S RN Member Role: Primary Care Nurse Care Team Related Persons Name: ASAEL BAZAN Address: home [address] [place] [address] Name: KIRILL BAZAN Address: home [address] [place] [address] Name: ZHOU BAZAN Address: [id number] Address: home [address] [address] [place]
--- OUTSIDE RECORDS SUMMARY | 2023-05-12 20:00 | XMS_ITS | Continuity of Care Document ---
Author Name Unknown Organization [facility] Address [address] [place] [address] mario alberto, [address] [place] [address]- Care Team Providers Care Heat And Vent Aircraft Mechanic Name Role Phone Vasu Joe DO Primary Care Physician Encounter [facility] Date(s): 12/06/22 - 01/05/23 [facility] [address] [place] [address] Drive, [address] [place] [address]- Allergies, Adverse Reactions, Alerts Substance Reaction Severity [...] 0 Refills, Maintenance, 11/23/22 13:00:00 EDT, Tablet, [facility], Partial fill upon patient request [...] 11/23/22 13:00:00 EDT, Route to Pharmacy Electronically, [facility] 3, Partial fill upon patient request [...] 11/23/22 13:00:00 EDT, Route to Pharmacy Electronically, [facility], Partial fill uponpatient request if the prescription is for a schedu... Start Date: 11/23/22 Stop Date: 12/07/22 Status: Ordered docusate sodium 100 mg oral capsule 100 mg, 1, capsule, By Mouth, 2 times a day, # 60 capsule, Refills 0, Tot. Refills 0, Maintenance, 10/08/20 9:40:00 EDT, [id number] fill upon patient request [...] Maintenance, 11/23/2312:01:00 EDT, Route to Pharmacy Electronically, [facility], Partial fill upon patientrequest if the prescription is for a schedule II op... Start Date: 11/23/22 Stop Date: 12/07/22 Status: Ordered gabapentin 300 mg oral capsule 600 mg, 2, capsule, By Mouth, 3 times a day, # 180 capsule, Refills 0, Tot. Refills 0, Maintenance,11/23/22 13:00:00 EDT, Route to Pharmacy Electronically, [facility], Partial fill upon patient [...] 0 Refills, Maintenance, 11/23/22 13:01:00 EDT, Capsule, [facility], Partial fill upon patient [...] Refills, Maintenance, 11/23/22 14:08:00 EDT, ER Capsule, [facility], Partial fill upon patient [...] Team Personnel Name: Carla Cooley RN Position: [facility] RN Member Role: Primary Care Nurse Name: Robbie Pichardo RN Position: [facility] RN Member Role: Primary Care Nurse Name: Juwan Gerber RN Position: [facility] RN Member Role: Primary Care Nurse Name: Seven Raines MD Position: [facility] ROOM SERVICE SUPERVISOR Member Role: [employer]etime ROOM SERVICE SUPERVISOR Physician Address: Address: [address] [place] [address] Name: Jaja Champagne RN Position: [facility] RN Member Role: Primary Care Nurse Name: Danielle Hernandez LPN Position: [facility] RN Member Role: Primary Care Nurse Name: Nadia Diego RN Position: [facility] RN Member Role: Primary Care Nurse Name: Glenys Cardenas RN Position: [facility] RN Member Role: Primary Care Nurse Name: Izzy Escalante RN Position: [facility] RN Member Role: Primary Care Nurse Name: Vasu Joe DO Position: [facility] Physician - Primary Care Member Role: PCP Address: Address: [address] [place], [place] [id number] [address] Name: Mai Hess RN Position: [facility] RN Member Role: Primary Care Nurse Name: Anna Reyes RN Position: [facility] RN Member Role: Primary Care Nurse Name: Mali Mosley RN Position: [facility] RN Member Role: Primary Care Nurse Care Team Related Persons Name: ASAEL BAZAN Address: home [address] [place] [address] Name: KIRILL BAZAN Address: home [address] [place] [address] Name: ZHOU BAZAN Address: [address] Address: home [address] [place] [id number] [place]
--- OUTSIDE RECORDS SUMMARY | 2023-05-12 20:00 | XMS_ITS | Continuity of Care Document ---
Author Name Unknown Organization [facility] Address [address] [place] [address] mario alberto, [address] [place] [address]- Care Team Providers Care Chicken Hatchery Helper Name Role Phone Vasu Joe DO Primary Care Physician Encounter [facility] Date(s): 12/12/22 - 01/11/23 [facility] [address] [place] [address] Drive, [address] [place] [address]- Allergies, Adverse Reactions, Alerts Substance Reaction Severity [...] 0 Refills, Maintenance, 11/23/22 13:00:00 EDT, Tablet, [facility], Partial fill upon [...] 11/23/22 13:00:00 EDT, Route to Pharmacy Electronically, [facility] 3, Partial fill upon patient request [...] 11/23/22 13:00:00 EDT, Route to Pharmacy Electronically, [facility], Partial fill uponpatient request if the prescription is for a schedu... Start Date: 11/23/22 Stop Date: 12/07/22 Status: Ordered docusate sodium 100 mg oral capsule 100 mg, 1, capsule, By Mouth, 2 times a day, # 60 capsule, Refills 0, Tot. Refills 0, Maintenance, 10/08/20 9:40:00 EDT, [id number] upon [...] Maintenance, 11/23/2312:01:00 EDT, Route to Pharmacy Electronically, [facility], Partial fill upon patientrequest if the prescription is for a schedule II op... Start Date: 11/23/22 Stop Date: 12/07/22 Status: Ordered gabapentin 300 mg oral capsule 600 mg, 2, capsule, By Mouth, 3 times a day, # 180 capsule, Refills 0, Tot. Refills 0, Maintenance,11/23/22 13:00:00 EDT, Route to Pharmacy Electronically, [facility], Partial fill upon patient [...] 0 Refills, Maintenance, 11/23/22 13:01:00 EDT, Capsule, [facility], Partial fill upon patient [...] Refills, Maintenance, 11/23/22 14:08:00 EDT, ER Capsule, [facility], Partial fill upon patient [...] Raines MD Position: [facility] FLEXIBLE SHAFT WINDER Member Role: Lifetime FLEXIBLE SHAFT WINDER Physician Address: Address: [address] [place] [address] Name: Jaja Champagne RN [facility] Primary Care Member Role: PCP Address: Address: [address] [place], [place] [id number] [address] Name: Mai Hess RN Position: [facility] RN Member Role: Primary Care Nurse Name: Anna Reyes RN Position: [facility] RN Member Role: Primary Care Nurse Name: Mali Mosley RN Position: [facility] RN Member Role: Primary Care Nurse Care Team Related Persons Name: ASAEL BAZAN Address: home [address] [place] [address] Name: KIRILL BAZAN Address: home [address] [place] [address] Name: ZHOU BAZAN Address: [address] Address: home [address] [place] [id number] [place]
--- OUTSIDE RECORDS SUMMARY | 2023-05-12 20:00 | XMS_ITS | Continuity of Care Document ---
Author Name Unknown Organization [facility] Address [address] [place] [address] ve [address] [place] [address]- Care Team Providers Care L D Rn Name Role Phone Vasu Joe DO Primary Care Physician Encounter [facility] Date(s): 12/20/22 - 01/19/[address] [place] [address]- Allergies, Adverse Reactions, Alerts Substance Reaction Severity [...] Maintenance, 11/23/22 13:00:00 EDT, Tablet, [facility] 3, Partial fill upon patient request if [...] 11/23/22 13:00:00 EDT, Route to Pharmacy Electronically, [facility] 3, Partial fill upon patient request if... [...] EDT, Route to Pharmacy Electronically, [facility], Partial fill uponpatient request [...] Maintenance, 11/23/2312:01:00 EDT, Route to Pharmacy Electronically, [facility], Partial fill upon patientrequest if the prescription is for a schedule II op... Start Date: 11/23/22 Stop Date: 12/07/22 Status: Ordered gabapentin 300 mg oral capsule 600 mg, 2, capsule, By Mouth, 3 times a day, # 180 capsule, Refills 0, Tot. Refills 0, Maintenance,11/23/22 13:00:00 EDT, Route to Pharmacy Electronically, [facility], Partial fill upon patient [...] 0 Refills, Maintenance, 11/23/22 13:01:00 EDT, Capsule, [facility], Partial fill upon patient [...] Refills, Maintenance, 11/23/22 14:08:00 EDT, ER Capsule, [facility], Partial fill upon patient [...] Name: Carla Cooley RN Position: [facility] RN Member Role: Primary Care Nurse Name: Robbie Pichardo RN Position: [facility] RN Member Role: Primary Care Nurse Name: Juwan Gerber RN Position: [facility] RN Member Role: Primary Care Nurse Name: Seven Raines MD Position: [facility] FLORAL DESIGN TEACHER MD Member Role: Lifetime FLORAL DESIGN TEACHER Physician Address: Address: [address] [place] [address] Name: Jaja Champagne RN Position: [facility] RN Member Role: Primary Care Nurse Name: Danielle Hernandez LPN Position: [facility] RN Member Role: Primary Care Nurse Name: Nadia Diego RN Position: [facility] RN Member Role: Primary Care Nurse Name: Glenys Cardenas RN Position: [facility] RN Member Role: Primary Care Nurse Name: Izzy Escalante RN Position: [facility] RN Member Role: Primary Care Nurse Name: Vasu Joe DO Position: [facility] Physician - Primary Care Member Role: PCP Address: Address: [address] [place], [place] [id number] [address] Name: Mai Hess RN Position: [facility] RN Member Role: Primary Care Nurse Name: Anna Reyes RN Position: [facility] RN Member Role: Primary Care Nurse Name: Mali Mosley RN Position: [facility] RN Member Role: Primary Care Nurse Care Team Related Persons Name: ASAEL BAZAN Address: home [address] [place] [address] Name: KIRILL BAZAN Address: home [address] [place] [address] Name: ZHOU BAZAN Address: [address] Address: home [address] [address] [place]
--- OUTSIDE RECORDS SUMMARY | 2023-05-12 20:01 | XMS_ITS | Continuity of Care Document ---
Author Name Unknown Organization [facility] Address [address] [place] [address] [address] [place] [address]- Care Team Providers Care Electronic News Gathering Camera Person Name Role Phone Vasu Joe DO Primary Care Physician Encounter [facility] [place] Date(s): 12/19/22 - 01/18/[address] [place] [address]- Attending Physician: [email or web address] [email or web address] Admitting Physician: AdmtrJose [...] 0 Refills, Maintenance, 11/23/22 13:00:00 EDT, Tablet, [facility] 3, Partial fill upon patient request if [...] 11/23/22 13:00:00 EDT, Route to Pharmacy Electronically, [facility] 3, Partial fill upon patient request if... [...] 11/23/22 13:00:00 EDT, Route to Pharmacy Electronically, [facility], Partial fill uponpatient request [...] 11/23/2312:01:00 EDT, Route to Pharmacy Electronically, [facility], Partial fill upon patientrequest if the prescription is for a schedule II op... Start Date: 11/23/22 Stop Date: 12/07/22 Status: Ordered gabapentin 300 mg oral capsule 600 mg, 2, capsule, By Mouth, 3 times a day, # 180 capsule, Refills 0, Tot. Refills 0, Maintenance,11/23/22 13:00:00 EDT, Route to Pharmacy Electronically, [facility], Partial fill upon patient [...] 0 Refills, Maintenance, 11/23/22 13:01:00 EDT, Capsule, [facility], Partial fill upon patient [...] Refills, Maintenance, 11/23/22 14:08:00 EDT, ER Capsule, [facility], Partial fill upon patient [...] Type Site Open Reduction Internal Fixation Taz Garlnad MD 11/07/22 Unknown Arm Lower Device Identifier [...] Team Personnel Name: Carla Cooley RN Position: [facility] RN Member Role: Primary Care Nurse Name: Robbie Pichardo RN Position: [facility] RN Member Role: Primary Care Nurse Name: Juwan Gerber RN Position: S RN Member Role: Primary Care Nurse Name: Seven Raines MD Position: [facility] PHILATELIC CONSULTANT MD Member Role: Lifetime PHILATELIC CONSULTANT Physician Address: Address: [address] [address]- Name: Jaja Champagne RN Position: S RN Member Role: Primary Care Nurse Name: Danielle Hernandez LPN Position: S RN Member Role: Primary Care Nurse Name: Nadia Diego RN Position: S RN Member Role: Primary Care Nurse Name: Glenys Cardenas RN Position: S RN Member Role: Primary Care Nurse Name: Izzy Escalante RN Position: [facility] RN Member Role: Primary Care Nurse Name: Vasu Joe DO Position: [facility] Physician - Primary Care Member Role: PCP Address: Address: [address] [facility] [address] [place] [address]- Name: Mai Hess RN Position: S RN Member Role: Primary Care Nurse Name: Anna Reyes RN Position: [facility] RN Member Role: Primary Care Nurse Name: Mali Mosley RN Position: [facility] RN Member Role: Primary Care Nurse Care Team Related Persons Name: ASAEL BAZAN Address: home [address] [place] [address] Name: KIRILL BAZAN Address: home [address] [place] [address] Name: ZHOU BAZAN Address: Address: home [address] [place] [id number]
[2023-05-12 20:08] VITALS: BP 122/87; PULSE 82; RESP 16; TEMP 36.7; O2SAT 99
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
[2023-05-12 20:28] LABS: MANUAL DIFF FLAG NO
[2023-05-12 20:35] LABS: Basophils Percent Auto 0.4 % (0-2); Eosinophils Absolute Auto 0.1 X10*3/uL (0.0-0.4); Eosinophils Percent Auto 2.2 % (0-4); Hematocrit 37.7 % (37.0-47.0); Hemoglobin 12.8 g/dl (12.0-16.0); Lymphocytes Percent Auto 35.1 % (20-40); Mean Corpuscular Hemoglobin 29.1 pg (27.0-33.0); Mean Corpuscular Volume 85.7 fL (80.0-98.0); Mean Platelet Volume 8.3 fL (9.4-12.3); Monocytes Absolute Auto 0.5 X10*3/uL (0.1-1.2); Monocytes Percent Auto 8.6 % (2-11); Neutrophils Percent Auto 53.7 % (45-73); Platelet Count 260 X10*3/uL (160-400); Red Cell Distribution Width 12.3 % (11.0-16.0); White Blood Count 5.6 X10*3/uL (4.8-10.8)
[2023-05-12 20:40] LABS: Prothrombin Time 11.8 SEC (11.1-13.3)
[2023-05-12 20:45] LABS: Alanine Aminotransferase 20 U/L (0-31); Albumin Level 4.1 g/dL (3.5-5.0); Alkaline Phosphatase 82 U/L (39-117); Anion Gap 13 (12-20); Aspartate Amino Transferase 25 U/L (5-31); Bilirubin Direct < 0.2 mg/dL (0.0-0.5); Bilirubin Total 0.2 mg/dL (0.0-1.0); Blood Urea Nitrogen 13 mg/dL (9-16); C Reactive Protein < 0.10 mg/dL (< or = 0.50); Calcium 9.1 mg/dL (8.4-10.2); Carbon Dioxide 27 mmol/L (22-29); Chloride 105 mmol/L (96-108); Creatinine Clr Calc Pharmacy 89.4; Estimated Glomerular Filt Rate > 60; Glucose Random 98 mg/dL (60-115); Potassium 3.8 mmol/L (3.3-5.1); Sodium 141 mmol/L (135-145)
[2023-05-12 21:16] LABS: Erythrocyte Sedimentation Rate 14 MM/HR (0-20)
[2023-05-12 22:24] VITALS: BP 123/85; PULSE 80; RESP 16; TEMP 36.6; O2SAT 100
== END 2023-05-12 23:07 | disposition home or self-care (01) ==
PROVIDERS: Physician Assistant; Emergency Provider Emergency Medicine; PCP Internal Medicine
DX: M79.602 Pain in left arm (principal); M79.89 Other specified soft tissue disorders; Z87.81 Personal history of (healed) traumatic fracture
CPT/HCPCS: 36415; 73080; 80048; 80076; 85025; 85610; 85652; 86140; 93971; 99284